=== PATIENT | male | born 1940 | race Caucasian/White ===

== ENCOUNTER 2017-11-22 16:23 | Inpatient (IN) ==
--- NOTE | 2017-11-22 16:43 | Emergency Department Note ---
Disposition Clinical Impression: Chest pain, rule out acute myocardial infarction Disposition: Admitted As Inpatient Condition: Fair Chest Pain HPI - General Chief Complaint: ED Chest Pain Stated Complaint: chest pain Time Seen by Provider: 11/22/17 16:31 Source: patient, family Limitations: no limitations - History of Present Illness HPI Narrative: Mr. Sandhu is a 77 year-old gentleman with PMH significant for HTN, DM, and an episode of Afib with RVR who presents by EMS for chest pain that began this afternoon while seated at a picnic table talking with friends. While talking to his friends he felt his heart rate increasing, could feel his heart pounding in his chest, and started to experience a constant, substernal, non-radiating chest pain that he describes as "pressure." Pt states his heart races from time to time, but it has always gone away after sitting down. He admits to nausea associated with his chest pain. He denies diaphoresis, difficulty breathing, shortness of breath, back pain, and confusion associated with the chest pain at the time it began. Pt states he didn't physically exert himself prior to the chest pain, but that he did mow some of his lawn with a push mower. Since his arrival, his chest pain has improved and is having less substernal pressure. Patient denies h/o KS or other cardiac issues. According to patient and accompanying family, he has been feeling more fatigued than usual x 1 year year , but fatigue has worsened over the last 6 months. He has seen his PCP for the fatigue and has what sounds like a cardiac echo planned. He reports some occasional lower extremity swelling, but this is not new for him and it hasn't changed from baseline. Pt complaint: other (Chest pressure) Onset (ago): hour(s) Duration: constant (resolving) Pain Location: substernal Severity scale (1-10): 4 Quality: other (pressure) Pain Radiation: none Associated symptoms: Reports: nausea, leg swelling (occasional). Denies: vomiting, diaphoresis, syncope - Related Data Home Medications Medication Instructions Recorded Confirmed Allopurinol [Zyloprim] 100 mg PO QAM 03/28/15 07/02/15 Amitriptyline [Elavil] 25 mg PO QPM 03/28/15 07/02/15 Indomethacin [Indocin] 50 mg PO BID PRN 03/28/15 07/02/15 Lisinopril/Hydrochlorothiazide 1 each PO QAM 03/28/15 07/02/15 [Zestoretic 20-12.5 mg Tablet] Loratadine [Claritin] 10 mg PO QAM 03/28/15 07/02/15 Metoprolol [Lopressor] 100 mg PO QAM 03/28/15 07/02/15 Metoprolol [Lopressor] 200 mg PO QPM 03/28/15 07/02/15 Simvastatin [Zocor] 20 mg PO QPM 03/28/15 07/02/15 Tamsulosin [Flomax] 0.4 mg PO QAM 03/28/15 07/02/15 Sildenafil Citrate [Viagra] 100 mg PO AD 07/02/15 07/02/15 Previous Rx's Medication Instructions Recorded Amoxicillin [Amoxil] 1,000 mg PO BID #26 capsule 07/04/15 Clarithromycin [Biaxin] 500 mg PO BID #26 tablet 07/04/15 Ferrous Sulfate 325 mg PO BIDWM #60 tablet 07/04/15 Omeprazole [PriLOSEC] 20 mg PO BIDAC #60 capsule 07/04/15 Allergies Allergy/AdvReac Type Severity Reaction Status Date / Time allantoin Allergy Unknown UNKNOWN Verified 07/02/15 15:32 atorvastatin [From Lipitor] Allergy Unknown UNKNOWN Verified 07/02/15 15:32 Sulfa (Sulfonamide Allergy Unknown UNKNOWN Verified 07/02/15 15:32 Antibiotics) All systems ED: reviewed and negative except as stated. Review of Systems: As Per HPI Constitutional: Reports: weakness (x 1 year, worse x 6 months) Eyes: Reports: other (subconjunctival hemorrhage bilaterally) Cardiovascular: Reports: chest pain, other (tachycardia) Gastrointestinal: Reports: nausea. Denies: vomiting Musculoskeletal: Denies: back pain, neck pain Neurological: Reports: headache. Denies: numbness, paresthesias, confusion Chest Pain PMH - Past Medical History Medical history: Reports: hyperlipidemia, hypertension, renal disease Surgical history: Reports: orthopedic, other Psychiatric history: Reports: no psych history - Social History Smoking Status: Never smoker Alcohol use: Reports: none Drug use: Reports: none Physical Exam - General Limitations: no limitations General appearance: alert, in no apparent distress - Head Head exam: normocephalic - Eye Eye exam: Present: PERRL, other (subconjunctival hemorrhage bilaterally) - Neck Neck exam: Present: full ROM - Respiratory Respiratory exam: Absent: respiratory distress - Cardiovascular Cardiovascular exam: Present: tachycardia - Abdominal Exam Abdominal exam: Present: other (small umbilical hernia) - Neurological Exam Neurological exam: Present: alert, oriented X3 - Psychiatric Psychiatric exam: Present: normal affect, normal mood Course Vital Signs Temperature 98.3 F 11/22/17 16:24 Pulse Rate 112 11/22/17 16:24 Respiratory Rate 20 11/22/17 16:24 Blood Pressure 166/88 11/22/17 16:24 O2 Sat by Pulse Oximetry 97 11/22/17 16:24 Temperature 98.3 F 11/22/17 22:20 Pulse Rate 88 11/22/17 22:20 Respiratory Rate 18 11/22/17 22:20 Blood Pressure 153/78 11/22/17 22:20 O2 Sat by Pulse Oximetry 94 11/22/17 22:20 Oxygen Delivery Oxygen Delivery Room Air Chest Pain - MDM Narrative Medical decision making narrative: Mr. Sandhu is a 77 year-old gentleman with h/o HTN, DM, and renal disease who presented to the emergency department by EMS for chest pain and heart rates in the 140s to 50s. On arrival, he was afebrile, tachycardic HR 112, BP 166/88, saturating 97% room air. EKG was done immediately on arrival and showed sinus tachycardia with ST depressions in V2-V4, new findings compared to an old EKG. Pulmonary vascular congestion noted on CXR. Lab work showed his CBC was within normal limits, potassium 3.4, glucose 140, initial troponin < 0.03. HEART score 6. Cardiology consultation was made. Dr. Teague recommended pt be admitted and would like to do a heart cath in the morning. Heparin gtt started as requested by cardiology. Pt will be admitted to hospital for further evaluation and management. Pt was in agreement with the plan as stated. - Medical Records Medical records reviewed: Yes I reviewed the patient's medical records. - Lab Data Lab results reviewed: Yes I reviewed the patient's lab results. Result diagrams: 11/23/17 00:49 11/23/17 00:49 Lab Results 05/13/18 05/13/18 05/13/18 Range/Units 16:40 16:40 16:40 WBC 5.3 (4.3-11.1) K/mcL RBC 4.35 (4.19-5.50) M/mcL Hgb 13.4 (12.9-16.9) g/dL Hct 40.8 (37.5-50.1) % MCV 93.8 (83.0-100.0) fL MCH 30.8 (28.0-33.3) pg MCHC 32.8 (31.6-35.5) g/dL RDW 13.5 (11.5-14.5) % Plt Count 244 (140-400) K/mcL MPV 10.3 (9.4-12.4) fL Immature Gran % 0.9 (0-4) % Seg Neutrophils % 75.9 % Lymphocytes % 15.3 % Monocytes % 6.4 % Eosinophils % 0.9 % Basophils % 0.6 % Neutrophils # 4.0 (1.6-8.9) K/mcL Lymphocytes # 0.8 (0.6-4.6) K/mcL Monocytes # 0.3 (0.0-1.3) K/mcL Eosinophils # 0.1 (0.0-0.6) K/mcL Basophils # 0.0 (0.0-0.2) K/mcL PT 11.7 (9.4-12.1) Seconds INR 1.1 APTT 25.7 L (26.0-36.0) Seconds Sodium 140 (136-145) mEq/L Potassium 3.4 L (3.5-5.1) mEq/L Chloride 103 (98-107) mEq/L Carbon Dioxide 27 (23-29) mEq/L BUN 14 (8-23) mg/dL Creatinine 0.91 (0.70-1.30) mg/dL Est GFR ( Amer) > 60 (> 60) Est GFR (Non-Af Amer) > 60 (> 60) BUN/Creatinine Ratio 15 (6-26) Glucose 140 H (70-105) mg/dL Calculated Osmolality 293 (280-300) Calcium 9.3 (8.6-10.3) mg/dL Troponin I < 0.03 (< 0.04) ng/mL - Radiology Data Radiology results reviewed: Yes I reviewed the patient's radiology results. - EKG Data EKG attestation: Yes I reviewed and interpreted this EKG. EKG shows normal: sinus rhythm Rate: tachycardia [place]/QRS: normal ST segment depression in: v2, v3
[2017-11-22 17:02] LABS: Basophils % 0.6 %; Eosinophils # 0.1 K/mcL (0.0-0.6); Eosinophils % 0.9 %; Hematocrit 40.8 % (37.5-50.1); Hemoglobin 13.4 g/dL (12.9-16.9); Immature Granulocytes % 0.9 % (0-4); Lymphocytes # 0.8 K/mcL (0.6-4.6); Lymphocytes % 15.3 %; Mean Corpuscular HGB Conc 32.8 g/dL (31.6-35.5); Mean Corpuscular Hemoglobin 30.8 pg (28.0-33.3); Mean Corpuscular Volume 93.8 fL (83.0-100.0); Mean Platelet Volume 10.3 fL (9.4-12.4); Monocytes # 0.3 K/mcL (0.0-1.3); Monocytes % 6.4 %; Platelet Count 244 K/mcL (140-400); Red Blood Count 4.35 M/mcL (4.19-5.50); Red Cell Distribution Width 13.5 % (11.5-14.5); Segmented Neutrophils % 75.9 %
[2017-11-22 17:06] LABS: INR 1.1; Prothrombin Time 11.7 Seconds (9.4-12.1)
[2017-11-22 17:09] LABS: Activated Partial Thrombo Time 25.7 Seconds (26.0-36.0)
[2017-11-22 17:25] LABS: BUN/Creatinine Ratio 15 (6-26); Blood Urea Nitrogen 14 mg/dL (8-23); Calcium 9.3 mg/dL (8.6-10.3); Carbon Dioxide 27 mEq/L (23-29); Chloride 103 mEq/L (98-107); Glucose 140 mg/dL (70-105); Osmolality,Calculated 293 (280-300); Potassium 3.4 mEq/L (3.5-5.1); Sodium 140 mEq/L (136-145); eGFR For African Americans > 60 (> 60); eGFR For Non-African Americans > 60 (> 60)
[2017-11-22 17:26] LABS: Troponin I < 0.03 ng/mL (< 0.04)
[2017-11-22] MEDS ORDERED: Nitroglycerin 0.4 MG TAB.SUBL SL PRN (17:28)
[2017-11-22] MEDS ORDERED: Aspirin 81 MG TAB.CHEW PO STA (17:28)
[2017-11-22] MEDS ORDERED: *HR* Heparin 5,000 UNIT/ML VIAL IVP PRN (17:28)
[2017-11-22] MEDS ORDERED: *HR* Heparin 5,000 UNIT/ML VIAL IVP ONE (17:28)
[2017-11-22] MEDS ORDERED: Acetaminophen 325 MG TABLET PO ONE (17:57)
[2017-11-22] MEDS: Heparin 25,000 UNIT/500 ML D5W 25,000 UNIT/500 ML BAG IVC SCH (18:04)
--- NOTE | 2017-11-22 18:31 | Emergency Department Note ---
Disposition Clinical Impression: Chest pain, rule out acute myocardial infarction Disposition: Admitted As Inpatient Condition: Fair Forms: ED Satisfaction Letter Time of Disposition: 17:20 Chest Pain HPI - General Chief Complaint: ED Chest Pain Stated Complaint: chest pain Time Seen by Provider: 11/22/17 16:31 Source: patient, family Limitations: no limitations Vital Signs Reviewed: Yes Nursing Notes Reviewed: Yes - History of Present Illness Pain Location: substernal Severity scale (1-10): 4 Quality: other (pressure) Associated symptoms: Reports: nausea, leg swelling (occasional). Denies: vomiting, diaphoresis, syncope - Related Data Home Medications Medication Instructions Recorded Confirmed Allopurinol [Zyloprim] 100 mg PO QAM 03/28/15 07/02/15 Amitriptyline [Elavil] 25 mg PO QPM 03/28/15 07/02/15 Indomethacin [Indocin] 50 mg PO BID PRN 03/28/15 07/02/15 Lisinopril/Hydrochlorothiazide 1 each PO QAM 03/28/15 07/02/15 [Zestoretic 20-12.5 mg Tablet] Loratadine [Claritin] 10 mg PO QAM 03/28/15 07/02/15 Metoprolol [Lopressor] 100 mg PO QAM 03/28/15 07/02/15 Metoprolol [Lopressor] 200 mg PO QPM 03/28/15 07/02/15 Simvastatin [Zocor] 20 mg PO QPM 03/28/15 07/02/15 Tamsulosin [Flomax] 0.4 mg PO QAM 03/28/15 07/02/15 Sildenafil Citrate [Viagra] 100 mg PO AD 07/02/15 07/02/15 Previous Rx's Medication Instructions Recorded Amoxicillin [Amoxil] 1,000 mg PO BID #26 capsule 07/04/15 Clarithromycin [Biaxin] 500 mg PO BID #26 tablet 07/04/15 Ferrous Sulfate 325 mg PO BIDWM #60 tablet 07/04/15 Omeprazole [PriLOSEC] 20 mg PO BIDAC #60 capsule 07/04/15 Allergies Allergy/AdvReac Type Severity Reaction Status Date / Time allantoin Allergy Unknown UNKNOWN Verified 07/02/15 15:32 atorvastatin [From Lipitor] Allergy Unknown UNKNOWN Verified 07/02/15 15:32 Sulfa (Sulfonamide Allergy Unknown UNKNOWN Verified 07/02/15 15:32 Antibiotics) Constitutional: Reports: weakness (x 1 year, worse x 6 months) Eyes: Reports: other (subconjunctival hemorrhage bilaterally) Cardiovascular: Reports: chest pain, other (tachycardia) Gastrointestinal: Reports: nausea. Denies: vomiting Musculoskeletal: Denies: back pain, neck pain Neurological: Reports: headache. Denies: numbness, paresthesias, confusion Chest Pain PMH - Past Medical History Medical history: Reports: hyperlipidemia, hypertension, renal disease Surgical history: Reports: orthopedic, other Psychiatric history: Reports: no psych history - Social History Smoking Status: Never smoker Alcohol use: Reports: none Drug use: Reports: none Physical Exam - General Limitations: no limitations General appearance: alert, in no apparent distress Course Vital Signs Temperature 98.3 F 11/22/17 16:24 Pulse Rate 112 11/22/17 16:24 Respiratory Rate 20 11/22/17 16:24 Blood Pressure 166/88 11/22/17 16:24 O2 Sat by Pulse Oximetry 97 11/22/17 16:24 Temperature 98.3 F 11/22/17 16:24 Pulse Rate 108 11/22/17 16:55 Respiratory Rate 18 11/22/17 16:55 Blood Pressure 155/88 11/22/17 16:55 O2 Sat by Pulse Oximetry 98 11/22/17 16:55 Oxygen Delivery Oxygen Delivery Room Air Chest Pain - Lab Data Result diagrams: 11/22/17 16:40 11/22/17 16:40 Lab Results 11/22/17 11/22/17 11/22/17 Range/Units 16:40 16:40 16:40 WBC 5.3 (4.3-11.1) K/mcL RBC 4.35 (4.19-5.50) M/mcL Hgb 13.4 (12.9-16.9) g/dL Hct 40.8 (37.5-50.1) % MCV 93.8 (83.0-100.0) fL MCH 30.8 (28.0-33.3) pg MCHC 32.8 (31.6-35.5) g/dL RDW 13.5 (11.5-14.5) % Plt Count 244 (140-400) K/mcL MPV 10.3 (9.4-12.4) fL Immature Gran % 0.9 (0-4) % Seg Neutrophils % 75.9 % Lymphocytes % 15.3 % Monocytes % 6.4 % Eosinophils % 0.9 % Basophils % 0.6 % Neutrophils # 4.0 (1.6-8.9) K/mcL Lymphocytes # 0.8 (0.6-4.6) K/mcL Monocytes # 0.3 (0.0-1.3) K/mcL Eosinophils # 0.1 (0.0-0.6) K/mcL Basophils # 0.0 (0.0-0.2) K/mcL PT 11.7 (9.4-12.1) Seconds INR 1.1 APTT 25.7 L (26.0-36.0) Seconds Sodium 140 (136-145) mEq/L Potassium 3.4 L (3.5-5.1) mEq/L Chloride 103 (98-107) mEq/L Carbon Dioxide 27 (23-29) mEq/L BUN 14 (8-23) mg/dL Creatinine 0.91 (0.70-1.30) mg/dL Est GFR ( Amer) > 60 (> 60) Est GFR (Non-Af Amer) > 60 (> 60) BUN/Creatinine Ratio 15 (6-26) Glucose 140 H (70-105) mg/dL Calculated Osmolality 293 (280-300) Calcium 9.3 (8.6-10.3) mg/dL Troponin I < 0.03 (< 0.04) ng/mL Attestation Statement - Attestation Attestation: I, Justin Dyson, examined this patient and my medical decision-making was reviewed with the ASSISTANT TEACHING PROFESSOR/PA/Advanced Practice Nurse/Resident Physician. I agree with the documented findings, disposition and treatment plan as described except to the extent set forth below. 77-year-old male presents emergency Department after an episode of lightheadedness, chest pressure and nausea. Patient states that this is occurred intermittently over the past year. Today his daughters had noticed that he did not look well, they gave him an aspirin in the emergency department for further evaluation. Patient had ST depressions in V2, V3, V4 which were changed from his previous EKG. Patient states he has never had history of cardiac disease other than A. fib. He also has a history of hypertension and diabetes. EKG was obtained immediately upon arrival which had concerning changes and so the interventional list, Dr. Teague was contacted. Dr. Teague reviewed the ECG and recommended no evidence of STEMI. Patient was started on heparin, he had received 324mg aspirin prior to arrival. Patient comfortable with the plan to admit to the hospital for further care and evaluation of likely heart catheterization in the morning.
--- NOTE | 2017-11-22 19:52 | Event Note ---
Date of Encounter: 11/22/17 Time of Encounter: 19:50 77/male Multiple comorbid conditions. Ongoing chest pain off and on for more than few months. Worsening chest pain since 1 PM today. Associated with nausea/vomiting. Evaluated in the emergency room. Possible dynamic EKG changes. Cardiology consult it. Recommended heparin drip. We will follow the recommendations from cardiology. Aspirin/beta blockers/statin/nitroglycerin. Echocardiogram. Cycle troponin. I have examined this patient in room 3B 35. Patient's family member including his , daughter was present during the conversation. Plan of care discussed with the patient/family members. They verbalize understanding.
[2017-11-22] MEDS ORDERED: Naloxone 0.4 MG/ML INJ IVP PRN (19:56)
--- NOTE | 2017-11-22 20:08 | Internal Med History&Physical ---
<JackelynMode - Last Filed: 11/22/17 20:01> Date of Encounter: 11/22/17 Time of Encounter: 19:45 Internal Medicine - H&P: HPI Chief complaint: Chest Pain Admitted From: Emergency Dept Plans for Post Hospital Care: Home History of present illness: Mr. Sandhu is a 77 year old male with PMHx of HTN, Diabetes, gastric ulcer ( 2014), presents to ED for chest pain with nausea and vomiting that began this afternoon while seated at a picnic table speaking with his friends. He denies history of OR or CAD. Denies previous stress test. He reports that he has had intermittent episodes of chest pressure over the last year, becoming more frequent the last 3 months. The chest pain usually self-resolves. Chest pain is constant, substernal, non-radiating. He denies SOB, diaphoresis, abdominal pain. Denies recent illnesses, f/c/diarrhea. The patient that admit to chronic LE swelling that is currently baseline. He has poor exercise tolerance, which he associates with his bad knee. Chest pain has improved after receiving nitroglycerin in ED. He is admitted for chest pain r/o ACS. Past Med Surg Social Fam HX - Past Medical History Medical history: hyperlipidemia, hypertension, renal disease Psychiatric history: no psych history - Past Surgical History Surgical History: orthopedic, other - Social History Smoking Status: Never smoker Smokeless Tobacco Status: No Alcohol use: none Drug use: none - Family History Father Hx Family Cardiac Disorders: Yes (Stroke) Sister Hx Family Cardiac Disorders: Yes (Stroke) Hx Family Cancer: Yes (Leukemia) Internal Medicine - H&P: Meds Allopurinol [Zyloprim] 100 mg PO QAM 03/28/15 [History] Amitriptyline [Elavil] 25 mg PO QPM 03/28/15 [History] Indomethacin [Indocin] 50 mg PO BID PRN 03/28/15 [History] Lisinopril/Hydrochlorothiazide [Zestoretic 20-12.5 mg Tablet] 1 each PO QAM [History] Loratadine [Claritin] 10 mg PO QAM 03/28/15 [History] Metoprolol [Lopressor] 100 mg PO QAM 03/28/15 [History] Metoprolol [Lopressor] 200 mg PO QPM 03/28/15 [History] Simvastatin [Zocor] 20 mg PO QPM 03/28/15 [History] Tamsulosin [Flomax] 0.4 mg PO QAM 03/28/15 [History] Sildenafil Citrate [Viagra] 100 mg PO AD 07/02/15 [History] Amoxicillin [Amoxil] 1,000 mg PO BID #26 capsule 07/04/15 [Rx] Clarithromycin [Biaxin] 500 mg PO BID #26 tablet 07/04/15 [Rx] Ferrous Sulfate 325 mg PO BIDWM #60 tablet 07/04/15 [Rx] Omeprazole [PriLOSEC] 20 mg PO BIDAC #60 capsule 07/04/15 [Rx] 3 Allergy/AdvReac Type Severity Reaction Status Date / Time allantoin Allergy Unknown UNKNOWN Verified 07/02/15 15:32 atorvastatin [From Lipitor] Allergy Unknown UNKNOWN Verified 07/02/15 15:32 Sulfa (Sulfonamide Allergy Unknown UNKNOWN Verified 07/02/15 15:32 Antibiotics) All Systems PM: A 10-system review of systems was performed and is negative for pertinent findings except as documented above in the HPI. - Constitutional Constitutional: no chills, no fever(s), no night sweats - EENT Eyes: no change in vision, no discharge, no pain, no photophobia Ears: no ear discharge, no ear pain, no tinnitus Nose, mouth and throat: no dysphagia, no nasal discharge, no neck pain, no sore throat - Cardiovascular Cardiovascular ROS IM: chest pain, palpitations, no diaphoresis, no dyspnea, no lightheadedness, no syncope - Respiratory Respiratory: no cough, no dyspnea, no wheezing, no excessive phlegm production - Gastrointestinal Gastrointestinal: no abdominal pain, no diarrhea, no hematemesis, no hematochezia, no melena, no nausea, no vomiting - Musculoskeletal Musculoskeletal ROS IM: no numbness, no tingling - Integumentary Integumentary IM: no rash, no unusual bruising - Neurological Neurological ROS: no confusion, no convulsions, no focal weakness, no numbness, no tingling, no tremor(s) - Hematologic/Lymphatic Hematologic/Lymphatic: no easy bruising - Constitutional Vitals: Temp Pulse Resp BP Pulse Ox 98.3 F 90 18 140/111 98 11/22/17 16:24 11/22/17 18:28 11/22/17 18:28 11/22/17 18:28 11/22/17 18:28 General appearance: Present: A&O X 3, no acute distress - Head Head exam: Present: atraumatic, normocephalic - Eye Eye exam: Present: EOMI, conjuntiva pink, sclera anicteric - Neck Neck exam general surgery: Present: full ROM, supple, trachea midline. Absent: lymphadenopathy - Respiratory Respiratory exam: Present: CTAB. Absent: accessory muscle use, rales, rhonchi, wheezes - Cardiovascular Cardiovascular exam: Present: +S1, +S2, tachycardia. Absent: diastolic murmur, gallop, rubs, systolic murmur - GI/Abdominal GI/Abdominal exam: Present: normal bowel sounds, soft, no peritoneal signs. Absent: distended, tenderness - Extremities Exam Extremities exam: Present: pedal edema, warm, radial pulses palpable and symmetrical. Absent: calf tenderness, cyanotic - Neurological Exam Neurological exam: Present: oriented X3, no focal deficits. Absent: pronater drift, facial droop, speech deficit - Skin Skin exam: Present: dry, intact Internal Med - H&P Results - Labs CBC & Chem 7: 11/22/17 16:40 11/22/17 16:40 - Assessment and plan (1) Chest pain, rule out acute myocardial infarction Current Visit: Yes Status: Acute Assessment and plan: 77M with PMHx HTN, DM, no history of CAD, presents for intermittent chest pain for the last year, worse this PM, associated with n/v. CP improved with Nitroglycerin. EKG independently reviewed: tachycardic with occasional PVCs. Possible dynamic changes. CXR = no acute findings. Troponin negative x 1. Continue trending. Continue heparin drip, aspirin, BB, statin, nitroglycerin. Pending echocardiogram. Pending cardiology consult. (2) Hypertension Current Visit: No Status: Chronic Assessment and plan: Reconcile home medications when available. Qualifiers: Hypertension type: essential hypertension Qualified Code(s): I10 - Essential (primary) hypertension (3) Diabetes Current Visit: No Status: Chronic Assessment and plan: Stable. low dose SSI Qualifiers: Diabetes mellitus type: type 2 Diabetes mellitus complication status: with kidney complications Diabetes mellitus complication detail: with chronic kidney disease Chronic kidney disease stage: unspecified stage Qualified Code(s): E11.22 - Type 2 diabetes mellitus with diabetic chronic kidney disease (4) Hypokalemia Current Visit: Yes Status: Acute Assessment and plan: KCl 20 meq PO once Recheck AM labs (5) DVT prophylaxis Current Visit: Yes Status: Acute Assessment and plan: On heparin Drip - Time Spent With Patient Total time spent is greater than 50% in coordination of care (as documented) at patient's floor/unit and/or counseling patient: Greater than 35 minutes <Ean Rodriguez P - Last Filed: 11/22/17 21:27> Date of Encounter: 11/22/17 Internal Medicine - H&P: HPI History of present illness: Mr. Sandhu is a 77 year old male All Systems PM: A 10-system review of systems was performed and is negative for pertinent findings except as documented above in the HPI. - Constitutional Vitals: Temp Pulse Resp BP Pulse Ox 98.3 F 90 18 140/111 98 11/22/17 16:24 11/22/17 18:28 11/22/17 18:28 11/22/17 18:28 11/22/17 18:28 Internal Med - H&P Results - Labs CBC & Chem 7: 11/22/17 16:40 11/22/17 16:40 - Attending Attestation I examined this patient and my medical decision-making was reviewed with the Resident Physician. I agree with the documented findings, disposition and treatment plan as described except to the extent set forth below. seen and examined please see event note - Assessment and plan (1) Diabetes Current Visit: No Status: Chronic Qualifiers: Diabetes mellitus type: type 2 Diabetes mellitus complication status: with kidney complications Diabetes mellitus complication detail: with chronic kidney disease Chronic kidney disease stage: unspecified stage Qualified Code(s): E11.22 - Type 2 diabetes mellitus with diabetic chronic kidney disease (2) Hypertension Current Visit: No Status: Chronic Qualifiers: Hypertension type: essential hypertension Qualified Code(s): I10 - Essential (primary) hypertension (3) Chest pain, rule out acute myocardial infarction Current Visit: Yes Status: Acute (4) Hypokalemia Current Visit: Yes Status: Acute (5) DVT prophylaxis Current Visit: Yes Status: Acute - Time Spent With Patient Total time spent is greater than 50% in coordination of care (as documented) at patient's floor/unit and/or counseling patient:
[2017-11-22] MEDS ORDERED: *HR* Dextrose 50 % in Water (Syg) 50 ML SYRINGE IVP PRN (20:25)
[2017-11-22] MEDS ORDERED: D5% in Water 1,000 ML IVC PRN (20:25)
[2017-11-22] MEDS ORDERED: Dextrose Gel 15 GM/37.5 ML TUBE PO PRN ×2 (20:25)
[2017-11-22] MEDS: Insulin LISPRO 300 UNITS/3 ML VIAL SQ SCH (21:23)
[2017-11-23 01:34] LABS: Eosinophils # 0.1 K/mcL (0.0-0.6); Eosinophils % 2.9 %; Hematocrit 38.1 % (37.5-50.1); Hemoglobin 12.5 g/dL (12.9-16.9); Immature Granulocytes % 1.6 % (0-4); Lymphocytes % 32.4 %; Mean Corpuscular HGB Conc 32.8 g/dL (31.6-35.5); Mean Corpuscular Hemoglobin 30.6 pg (28.0-33.3); Mean Corpuscular Volume 93.2 fL (83.0-100.0); Mean Platelet Volume 10.5 fL (9.4-12.4); Monocytes # 0.2 K/mcL (0.0-1.3); Monocytes % 7.5 %; Neutrophils # 1.7 K/mcL (1.6-8.9); Nucleated Red Blood Cells 0.7 /100 WBC (0); Platelet Count 230 K/mcL (140-400); Red Blood Count 4.09 M/mcL (4.19-5.50); Red Cell Distribution Width 13.6 % (11.5-14.5); Segmented Neutrophils % 54.6 %
[2017-11-23 01:45] LABS: BUN/Creatinine Ratio 16 (6-26); Blood Urea Nitrogen 16 mg/dL (8-23); Calcium 9.1 mg/dL (8.6-10.3); Carbon Dioxide 27 mEq/L (23-29); Chloride 105 mEq/L (98-107); Glucose 101 mg/dL (70-105); Magnesium 1.8 mg/dL (1.6-2.6); Osmolality,Calculated 293 (280-300); Potassium 3.5 mEq/L (3.5-5.1); Sodium 141 mEq/L (136-145); eGFR For African Americans > 60 (> 60); eGFR For Non-African Americans > 60 (> 60)
[2017-11-23] MEDS: *HR* Heparin 5,000 UNIT/ML VIAL IVP PRN ×3 (02:32→18:11)
--- NOTE | 2017-11-23 09:42 | Cardiology Consult Note ---
<Keenan Hollingsworth - Last Filed: 11/23/17 10:22> Date of Encounter: 11/23/17 Time of Encounter: 09:32 Assessment and Plan (1) Chest pain, rule out acute myocardial infarction Current Visit: Yes Status: Acute Mr. Sandhu presents with chest pain and jittery feeling. Family reports HR 160 's at home and it would not come down. Initiall EKG showed ST HR [address] or T wave changes. Upon further record review patient had atrial fibrillation with RVR after knee surgery in 2014. Patient denies history of afib. No afib seen during this stay. Continue to monitor telemetry. Troponin negative x3. Cardiac risk factors include HTN, HLD. I discussed stress test vs. LHC. Patient has ongoing symptoms increasing in frequency. Concern for unstable angina. I will discuss further with Dr Best. (2) Hypertension Current Visit: No Status: Chronic Uncontrolled HTN. Restart home meds and adjust as needed. Qualifiers: Hypertension type: essential hypertension Qualified Code(s): I10 - Essential (primary) hypertension Discussion w patient/family: The assessment and plan as outlined above was discussed with the patient and/or family members who expressed understanding and agreement. All questions were answered. Thank you for involving us in the care of your patient. Please call with any questions. History of Present Illness Consult date: 11/23/17 Requesting physician: Ean Rodriguez Consult reason: Chest pain Chief complaint: Chest pain, tachycardia History of present illness: Mr. Sandhu is a 77 year old male with past medical history significant for HTN , HLD, and GI bleed after colonoscopy in 2014. He presented with the c/o chest heaviness and jittery feeling that started while he was sitting at a family gathering. states they checked his heart rate and it was seen to be 160 bpm , b/p 176/80. He tried to relax and his symptoms did not improve. He presented to the ED and was given NTG SL with relief of his pain. Reports having the same symptoms for the past year and they have increased in frequency over the past three months. He was started on heparin gtt for concerns of unstable angina. Past Med Surg Social Fam HX - Past Medical History Medical history: hyperlipidemia, hypertension, renal disease Psychiatric history: no psych history - Past Surgical History Surgical History: orthopedic, other - Social History Smoking Status: Never smoker Smokeless Tobacco Status: No Alcohol use: none Drug use: none - Family History Father Hx Family Cardiac Disorders: Yes (Stroke) Sister Hx Family Cardiac Disorders: Yes (Stroke) Hx Family Cancer: Yes (Leukemia) Medications and Allergies Amitriptyline [Elavil] 25 mg PO QPM 03/28/15 [History] Indomethacin [Indocin] 50 mg PO BID PRN 03/28/15 [History] Lisinopril/Hydrochlorothiazide [Zestoretic 20-12.5 mg Tablet] 1 each PO QAM [History] Ferrous Sulfate 325 mg PO BIDWM #60 tablet 07/04/15 [Rx] Allopurinol [Zyloprim 100 MG] 100 mg PO DAILY 11/23/17 [History] Donepezil [Aricept] 5 mg PO DAILY 11/23/17 [History] Fluticasone Propionate Nasal [Flonase] 1 spr NS DAILY 11/23/17 [History] Metoprolol [Lopressor] 100 mg PO QAM 11/23/17 [History] Metoprolol [Lopressor] 200 mg PO QPM 11/23/17 [History] Omeprazole [PriLOSEC] 40 mg PO DAILY 11/23/17 [History] traZODone [TraZODone] 50 - 100 mg PO HS 11/23/17 [History] 3 Allergy/AdvReac Type Severity Reaction Status Date / Time allantoin Allergy Unknown UNKNOWN Verified 11/23/17 11:22 atorvastatin [From Lipitor] Allergy Unknown UNKNOWN Verified 11/23/17 11:22 Sulfa (Sulfonamide Allergy Unknown UNKNOWN Verified 11/23/17 11:22 Antibiotics) All Systems Review: The remainder of the systems were reviewed and are negative Physical Examination Vital Signs, Last 4 Hours Temp Pulse Resp BP Pulse Ox 11/23/17 07:24 98.6 F 78 17 170/73 96 General: Conversant, No Apparent Distress HEENT: Atraumatic, Normocephaly, Mucus Membranes Moist, Other (Eyes are blood shot) Neck: No JVD, Normal carotid pulses Cardiac: Reg Rate and Rhythm, Normal S1 and S2, No Murmur Lungs: Normal Breath Sounds, No Wheeze, Rales, Rhonchi Neuro: Alert and responsive, No focal deficits noted Abdomen: Soft, Non-Tender Skin: No rashes noted on visualized skin Musculoskeletal: No Chest Wall Tenderness Extremities: No Clubbing, No Cyanosis, No Edema, Normal Pulses Results 11/23/17 00:49 11/23/17 00:49 Lab Results 11/23/17 11/23/17 11/23/17 00:49 00:49 00:49 WBC 3.1 L Hgb 12.5 L Hct 38.1 Plt Count 230 APTT 30.7 Sodium 141 Potassium 3.5 Chloride 105 Carbon Dioxide 27 BUN 16 Creatinine 1.00 Glucose 101 Calcium 9.1 Magnesium 1.8 Troponin I 11/23/17 06:28 WBC Hgb Hct Plt Count APTT Sodium Potassium Chloride Carbon Dioxide BUN Creatinine Glucose Calcium Magnesium Troponin I < 0.03 - Imaging and Cardiology Echo: report reviewed - EKG Interpretation EKG results cardiology: personally reviewed Consult Discharge Plan - Plan Referrals: Brandan Lindsay, [Primary Care Provider] - <Prema Best - Last Filed: 11/23/17 12:21> Date of Encounter: 11/23/17 - Attending Attestation 77 YOM with multiple CRF's possible PAF on presentation with worsening (more frequent) episodes of chest pain over last month. ST depressions right sided precordials. R/B/A d/w patient and he agrees to proceed. ECHO with 60-65% EF Assessment and Plan Discussion w patient/family: The assessment and plan as outlined above was discussed with the patient and/or family members who expressed understanding and agreement. All questions were answered. Thank you for involving us in the care of your patient. Please call with any questions. History of Present Illness History of present illness: Mr. Sandhu is a 77 year old male All Systems Review: The remainder of the systems were reviewed and are negative Physical Examination Vital Signs, Last 4 Hours Temp Pulse Resp BP Pulse Ox 11/23/17 11:32 98.1 F 78 18 172/87 95 Results 11/23/17 00:49 11/23/17 00:49 Lab Results 11/23/17 11/23/17 11/23/17 00:49 00:49 00:49 WBC 3.1 L Hgb 12.5 L Hct 38.1 Plt Count 230 APTT 30.7 Sodium 141 Potassium 3.5 Chloride 105 Carbon Dioxide 27 BUN 16 Creatinine 1.00 Glucose 101 Calcium 9.1 Magnesium 1.8 Troponin I 11/23/17 11/23/17 06:28 09:46 WBC Hgb Hct Plt Count APTT 40.7 H Sodium Potassium Chloride Carbon Dioxide BUN Creatinine Glucose Calcium Magnesium Troponin I < 0.03
[2017-11-23] MEDS: Insulin LISPRO 300 UNITS/3 ML VIAL SQ SCH ×4 (10:15→20:41)
--- NOTE | 2017-11-23 13:15 | Electrocardiograph Report ---
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
[2017-11-23] MEDS ORDERED: 0.9 % Sodium Chloride 1,000 ML ONE ×2 (13:55→14:16)
[2017-11-23] MEDS ORDERED: Heparin 1,000 UNITS/500 mL 500 ML ONE (13:55)
[2017-11-23] MEDS ORDERED: ISOVUE-370 200 ML INFUS..BTL IV ONE (13:55)
[2017-11-23] MEDS ORDERED: *HR* Heparin 10,000 UNIT/10 ML VIAL ONE (13:55)
[2017-11-23] MEDS ORDERED: Verapamil 5 MG/2 ML VIAL ONE (13:55)
[2017-11-23] MEDS ORDERED: Nitroglycerin 1,000 MCG/10 ML VIAL IV ONE (13:56)
--- NOTE | 2017-11-23 13:57 | Pre-Sedation Evaluation ---
Pre-sedation evaluation - Pre-sedation checklist Date of procedure: 11/23/17 Procedure: access [facility] Recent Vitals: Last Vital Signs Temp 98.1 F 11/23/17 11:32 Pulse 78 11/23/17 11:32 Resp 18 11/23/17 11:32 BP 172/87 11/23/17 11:32 Pulse Ox 95 11/23/17 11:32 H&P (including ROS) documented in medical record: Yes Previous reaction to sedatives/anesthetics: No Dietary Status: NPO after Midnight Dentition: poor dentition, dentures removed ASA Classification *see protocol: CLASS II-Mild systemic disease Plan of Care: Pt appropriate candidate for procedure/moderate/conscious sedation , Risks/benefits of procedure/sedation discussed w/ patient/family
[2017-11-23] MEDS ORDERED: *HR* FentaNYL (PF) 100 MCG/2 ML VIAL ONE (14:16)
[2017-11-23] MEDS ORDERED: *HR* Midazolam HCl 2 MG/2 ML VIAL ONE (14:16)
--- NOTE | 2017-11-23 15:27 | Invasive Diagnostic Lab Proc ---
Name: James Sandhu Date of Study: 11/23/2017 Date: 1940 Ht: 72.0in Medical Record#: [id number] Age: 77 Wt: 220.02lb Gender: Male BSA: 2.22 Order #: [id number] BMI: 29.8 Physicians Procedure Physician: Issac Teague MD, [facility] Referring MD: Referring MD: Staff Name Position Time In Sites, [facility] RT (R) Monitor 02:27 PM Tegan Reed RT (R) Scrub 02:27 PM Sherron Hurley RN Forest Resource Specialist 02:27 PM Indications Indication Unstable Angina Procedures Performed Procedure L HRT ARTERY/VENTRICLE ANGIO Pre-Procedure Checklist Informed consent is complete signed and on chart. H&P is on chart. ID band is on and ID verified with patient. Patient NPO for procedure The procedure was described for the patient and questions were answered. Blood Pressure: 172/87 ECG is on chart. Rhythm: NSR Plan of Care Patient will tolerate the procedure without complications. Adequate level of comfort will be maintained. Hemodynamics will remain stable Patient will recover from procedure without complications. Respiratory function will be maintained. Cardiac rhythm will remain stable. Patient temperature will be maintained. Patient and/or family have verbalized understanding of the procedure. Patient Education Intravenous Access Time IV Size Location DC'd Fluid/Drip Rate Units RN 18g 1 /" Patent On Arrival Rt Arm 0.9NaCl 25 ml/hr Sherron Hurley RN Allergies allantoin Sulfa (Sulfonamide Antibiotics) atorvastatin Vital Signs Time BP (mmHg) HR (bpm) O2 Sat. RR (bpm) LOC 165 / 91 85 95 % 16 5 = Fully awake and oriented or at pre-proc level 02:40 PM 165 / 91 68 99 % 27 02:44 PM 153 / 87 74 93 % 29 02:49 PM 152 / 79 71 95 % 25 02:54 PM 118 / 67 82 92 % 22 02:59 PM 133 / 77 79 93 % 28 03:04 PM 149 / 81 75 95 % 15 Procedural Medications Time Medication Dose Units Method Given By 02:41 PM Oxygen 2 L/min nasal cannula Sherron Hurley RN 02:41 PM Versed 2 mg Intravenous Sherron Hurley RN 02:41 PM Fentanyl 50 mcg Intravenous Sherron Hurley RN 02:49 PM Lidocaine 2% 0.5 ml Subcutaneous Issac Teague MD, [facility] 02:51 PM Heparin 2000 units Nitroglycerin 200 mcg Verapamil 2.5 mg Intraarterial Issac Teague MD, [facility] ASA Classification: CLASS II- Mild systemic disease (i.e. well-controlled diabetes, hypertension, asthma, cigarette smoking) Jeovany Score Preprocedure Postprocedure Activity 2- Moves 4 extremities sustained head lift Activity 2- Moves 4 extremities sustained head lift Circulation 2- SBP +/= 20 points of pre-anesthetic level Circulation 2- SBP +/= 20 points of pre-anesthetic level Consciousness 2- Awake and alert oriented x 3 Consciousness 2- Awake and alert oriented x 3 O2 Saturation 2- Able to maintain O2 satruation of 92% on room air O2 Saturation 2- Able to maintain O2 satruation of 92% on room air Respiratory 2- Able to deep breathe and cough well Respiratory 2- Able to deep breathe and cough well Total Score 10 Total Score 10 Contrast Agent: Isovue Diagnostic Contrast: 52 ml Total Contrast: 52 ml Fluoro Dose: 247 mGy Procedure Log Time Note Enter By 02:27 PM Pt 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 tsites 02:29 PM Procedure start 14:29 tsites 02:38 PM Vitals capture started with the following parameters, Patient=Adult, Interval=5 min, Initial Wwbiswdy=254 mmHg, Deflation Rate=3 mmHg, Cuff placed on Right Arm 02:40 PM HR=68 bpm, TDVP=528/91 mmhg, SpO2=99 %, Resp=27 B/min 02:41 PM Hair removed from procedure site in holding area using clippers. Right wrist and right groin prepped with Chloraprep by Marjorie Oliveira (Speedy), then patient was draped. Skin intact. tsites 02:41 PM Time: 14:41 Oxygen on at 2 L/min per nasal cannula by Sherron Hurley RN tsites 02:41 PM Time: 14:41 Versed 2 mg Intravenous Given by Sherron Hurley RN tsites 02:41 PM Time: 14:41 Fentanyl 50 mcg Intravenous Given by Sherron Hurley RN tsites 02:41 PM Clinical Presentation: Unstable angina tsites 02:43 PM CathStat 02:43 PM Recorded ECG: HR=76 Condition=Condition 1 02:44 PM HR=74 bpm, ZJEL=581/87 mmhg, SpO2=93.0 %, Resp=29 B/min 02:45 PM Pressure channel 1 zeroed. 02:49 PM HR=71 bpm, XGTT=500/79 mmhg, SpO2=95.0 %, Resp=25 B/min 02:49 PM Time out performed according to hospital policy tsites 02:49 PM Time: 14:49 0.5 ml Lidocaine 2% to right radial Subcutaneous Given by Issac Teague MD, FACC tsites 02:50 PM Access obtained by percutaneous puncture. 5Fr 10cm Terumo Glidesheath sheath placed in right Radial artery. [id number] tsites 02:51 PM Time: 14:51 Patient given 2,000 units Heparin, 200 mcg Nitroglycerin, and 2.5 mg Verapamil Intraarterial by Issac Teague MD, FACC. This is given to reduce risk of vessel spasm and thrombosis. tsites 02:52 PM 5Fr TIG catheter inserted over the wire [facility] tsites 02:52 PM 0.035 260cm Navilyst 3mmJ wire [id number] tsites 02:52 PM Catheter selectively placed in left ventricle tsites 02:52 PM Bolus angiogram of left Ventricle complete: 10 ml/sec for a total of 20 mls tsites 02:52 PM Recorded Pressure: LV, HR=83, Condition=Condition 1 (Left Ventricle) LV 93/-7/-3 02:53 PM Recorded Pressure: LV, Ao, HR=82, Condition=Condition 1 (Left Ventricle) LV 97/-5/7, (Aorta) Ao 97/58/73 02:53 PM LCA angiography performed in multiple views. tsites 02:54 PM HR=82 bpm, KRDP=916/67 mmhg, SpO2=92.0 %, Resp=22 B/min 02:55 PM Lesion found in Proximal LAD. Pre Stenosis: 99 Pre MELANI Flow: tsites 02:55 PM Recorded Pressure: Ao, HR=81, Condition=Condition 1 (Aorta) Ao 92/66/80 02:56 PM RCA angiography performed in multiple views. tsites 02:56 PM Recorded Pressure: Ao, HR=79, Condition=Condition 1 (Aorta) Ao 75/51/64 02:59 PM HR=79 bpm, YBDI=474/77 mmhg, SpO2=93.0 %, Resp=28 B/min 03:00 PM Conversation between Interventionalist and CT Surgeon. tsites 03:00 PM Coronary Dominance: right tsites 03:00 PM Lesion found in Proximal LAD. Pre Stenosis: 99 Pre MELANI Flow: tsites 03:00 PM Lesion found in Mid LAD. Pre Stenosis: 70 Pre MELANI Flow: tsites 03:01 PM Lesion found in Mid Circumflex. Pre Stenosis: 70 Pre MELANI Flow: tsites 03:01 PM Lesion found in Mid RCA. Pre Stenosis: 95 Pre MELANI Flow: tsites 03:01 PM Proximal Left Anterior Descending Coronary Artery with 99% stenosis. If graft is supplying this territory, 0 % stenosis. tsites 03:01 PM Mid/Distal Left Anterior Descending Coronary Artery and diagonal branches with 70% stenosis. If graft is supplying this area, 0 % stenosis tsites 03:01 PM Circumflex, Obtuse Marginal, Left Posterior Descending, and Left Posterolateral Coronary Arteries with 70 % stenosis. If graft is supplying this area, 0 % stenosis tsites 03:01 PM Right Coronary, Right Posterior Descending Arteries with Right Posterolateral and Acute Marginal branches with 95 % stenosis. If graft is supplying this area, 0 % stenosis tsites 03:01 PM Procedure completed at 15:01 tsites 03:03 PM Did you address MELANI flow and Dominance? Yes tsites 03:03 PM Sign out completed: Radiation Dose 247 mGy Fluoro Time: 0.8 Isovue 370 - 200ml contrast 52 ml given by Issac Teague MD, [facility]. Complications: NoneCardiac Rehab Consult needed: YesConfirmed administered medications: No tsites 03:03 PM Cardiothoracic surgeon consulted by physician tsites 03:04 PM Isovue 370 - 200ml,1 Bottle(s) used. tsites 03:04 PM Arterial sheath pulled, Vasc Band closure device used and was Successful S/N. tsites 03:04 PM 10 ml air in Vasc Band. tsites 03:04 PM HR=75 bpm, TWBJ=427/81 mmhg, SpO2=95.0 %, Resp=15 B/min 03:04 PM Estimated Blood Loss: minimal tsites 03:04 PM Post ECG NSR tsites 03:04 PM Post Blood Pressure 149/81 tsites 03:04 PM 15:04 Post Pulses Rt Radial 1+ tsites 03:04 PM Information taught Cardiac Cath and Vasc Band tsites 03:04 PM Education needs Procedure, Plan of Care, and Responsibilities of Patient in Care tsites 03:05 PM Learning barriers :None tsites 03:05 PM Education Methods Verbal tsites 03:05 PM Education evaluation Able to repeat information tsites 03:05 PM Site status No bleeding/hematoma - Rt Wrist as reported by Tegan Reed RT (R) at 15:05 tsites 03:08 PM Delay to floor No tsites 03:08 PM Patient out of room: 15:08 tsites 03:11 PM Report given to johnathan ALLEN Pt taken to 3B Room #31. 15:11 tsites 03:11 PM Delay to floor No tsites 03:11 PM Patient out of room: 15:11 tsites 03:11 PM Family placed in consult room. tsites Complications Complication None Hemodynamics Pressures Site Systolic/A Wave Diastolic/V Wave Mean LV 93 -7 -3 LV 97 -5 7 AO 97 58 73 AO 92 66 80 AO 75 51 64 Post Procedure Information Blood Pressure: 149/81 mmHg Rhythm: NSR Post procedural instructions were given Closure Device Time Device Success/Fail 11/23/2017 3:14:00 PM Mechanical Compression Successful Site Checks Time Location Status Staff Sheath In? Note 03:05 PM Rt Wrist No bleeding/hematoma Tegan Reed RT (R) Pulses Time Site Pre-Procedure Post-Procedure Note Bilateral DP & PT 1+ 3:04:00 PM Rt Radial 1+ Updated by Marjorie Oliveira RT (R) on 11/23/2017 3:18:09 PM Marjorie Oliveira RT electronically signed on 11/23/2017 3:18:45 PM with status of Final
--- NOTE | 2017-11-23 16:04 | Cardiothoracic Consult Note ---
Date of Encounter: 11/23/17 Time of Encounter: 16:00 Assessment and Plan (1) Chest pain, rule out acute myocardial infarction Current Visit: Yes Status: Acute The patient is a 77-year-old hypertensive man with hypercholesterolemia and a 1 year history of progressive substernal chest discomfort. Yesterday the patient had a severe episode of substernal chest pressure and heart palpitations while at rest. He was evaluated at [facility] emergency department and found to have atrial fibrillation with a rapid ventricular response. He converted to normal sinus rhythm spontaneously and the patient was admitted for further cardiac workup. Although the patient's troponin I levels remained negative for myocardial infarction, he underwent cardiac catheterization today because of his unstable angina. He was found to have severe 3 vessel CAD and an LVEF 60%. Patient has been recommended for combined CABG and modified Maze procedure. I concur with this recommendation. The STS risk calculator reveals an operative mortality risk 1.5%, stroke risk 1.04%, deep sternal wound infection risk 0.27%, renal failure risk 2.95%, and reoperation risk 5.16%. The patient understands the procedure, benefits, alternatives, and risks, and gives his informed consent. Dr. Poli Storey will perform the combined CABG and modified Maze procedure tomorrow. The assessment and plan as outlined above was discussed with the patient and/or family members who expressed understanding and agreement. All questions were answered. - History of Present Illness Consult date: 11/23/17 Requesting physician: Issac Teague Consult reason: CABG evaluation Chief complaint: Unstable angina History of present illness: Mr. Sandhu is a 77 year old hypertensive man with hypercholesterolemia who was admitted to [facility] on 11/22/2017 with complaints of substernal chest pain and pressure and heart palpitations. The patient states that he has had intermittent, exertional substernal chest discomfort for at least 1 year; however, the symptoms have become more frequent and severe during the last 3 months. On the day of admission, the was at home with family when he began experiencing substernal chest pressure at rest. He also noticed heart palpitations and his states that the patient had a heart rate of 160 bpm. He was evaluated at [facility] emergency department and found to have paroxysmal atrial fibrillation with rapid ventricular response. The patient converted to normal sinus rhythm spontaneously. His initial troponin I levels were negative, and he was admitted for further cardiac workup. A transthoracic echocardiogram revealed an LVEF 60-65% with normal LV size and function. Subsequent cardiac catheterization revealed severe 3 vessel CAD and an LVEF 60%. In particular the patient has a 90% proximal LAD lesion, a 70% mid LAD lesion, a diffusely diseased mid to distal LCx, and a 70% proximal RCA lesion. He has been recommended for combined CABG and modified Maze procedure. Past Med Surg Social Fam HX - Past Medical History Medical history: coronary artery disease, hyperlipidemia, hypertension, renal disease Psychiatric history: no psych history - Past Surgical History Surgical History: orthopedic, other (Right total knee replacement) - Social History Smoking Status: Never smoker Smokeless Tobacco Status: No Alcohol use: none Drug use: none Occupational status: retired Current living situation: Home Activity Level: Independent ambulation Recent Out of Country Travel Within the Last 8 Weeks: No Exposure or Possible Exposure to Illness During Travel: No - Family History Father Hx Family Cardiac Disorders: Yes (Stroke) Sister Hx Family Cardiac Disorders: Yes (Stroke) Hx Family Cancer: Yes (Leukemia) Medications and Allergies Amitriptyline [Elavil] 25 mg PO QPM 03/28/15 [History] Indomethacin [Indocin] 50 mg PO BID PRN 03/28/15 [History] Lisinopril/Hydrochlorothiazide [Zestoretic 20-12.5 mg Tablet] 1 each PO QAM [History] Ferrous Sulfate 325 mg PO BIDWM #60 tablet 07/04/15 [Rx] Allopurinol [Zyloprim 100 MG] 100 mg PO DAILY 11/23/17 [History] Donepezil [Aricept] 5 mg PO DAILY 11/23/17 [History] Fluticasone Propionate Nasal [Flonase] 1 spr NS DAILY 11/23/17 [History] Metoprolol [Lopressor] 100 mg PO QAM 11/23/17 [History] Metoprolol [Lopressor] 200 mg PO QPM 11/23/17 [History] Omeprazole [PriLOSEC] 40 mg PO DAILY 11/23/17 [History] traZODone [TraZODone] 50 - 100 mg PO HS 11/23/17 [History] 3 Allergy/AdvReac Type Severity Reaction Status Date / Time allantoin Allergy Unknown UNKNOWN Verified 11/23/17 11:22 atorvastatin [From Lipitor] Allergy Unknown UNKNOWN Verified 11/23/17 11:22 Sulfa (Sulfonamide Allergy Unknown UNKNOWN Verified 11/23/17 11:22 Antibiotics) All Systems Review: The remainder of the systems were reviewed and are negative Physical Examination General: Conversant, No Apparent Distress HEENT: Atraumatic, Normocephaly, Trachea midline Neck: No JVD, Normal carotid pulses Cardiac: Reg Rate and Rhythm, Normal S1 and S2, No Murmur Lungs: Normal Breath Sounds, No Wheeze, Rales, Rhonchi Neuro: Alert and responsive, No focal deficits noted, Motor nerves intact, Sensory nerves intact Vascular: Normal capillary refill Abdomen: Soft, Non-tender Skin: No rashes noted on visualized skin Musculoskeletal: No Chest Wall Tenderness Extremities: No Clubbing, No Cyanosis, No Edema, Normal Pulses Results 11/23/17 00:49 11/23/17 00:49 Lab Results, Last 24 hours 11/23/17 11/23/17 11/23/17 00:49 00:49 00:49 WBC 3.1 L Hgb 12.5 L Hct 38.1 Plt Count 230 APTT 30.7 Sodium 141 Potassium 3.5 Chloride 105 Carbon Dioxide 27 BUN 16 Creatinine 1.00 Glucose 101 Calcium 9.1 Magnesium 1.8 Troponin I 11/23/17 11/23/17 06:28 09:46 WBC Hgb Hct Plt Count APTT 40.7 H Sodium Potassium Chloride Carbon Dioxide BUN Creatinine Glucose Calcium Magnesium Troponin I < 0.03 - Imaging Chest Xray: image reviewed (Normal cardiac size. Increased pulmonary vascularity.) Consult Discharge Plan - Plan Referrals: Brandan Lindsay DO [Primary Care Provider] -
[2017-11-23 17:02] LABS: Chol/HDL Ratio 4.6 (0-4.9)
[2017-11-23] MEDS: Heparin 25,000 UNIT/500 ML D5W 25,000 UNIT/500 ML BAG IVC SCH (17:10)
[2017-11-23 17:39] LABS: Estimated Average Glucose 114 mg/dl; Hemoglobin A1C 5.6 %
[2017-11-23] MEDS ORDERED: Metoprolol 100 MG TABLET PO SCH (18:00)
--- NOTE | 2017-11-23 18:10 | Internal Med Progress Note ---
Date of Encounter: 11/23/17 Time of Encounter: 16:00 - Assessment and plan (1) Diabetes Current Visit: Yes Status: Chronic Assessment and plan: Sliding scale insulin, Accu-Cheks before meals at bedtime, diabetic diet Qualifiers: Diabetes mellitus type: type 2 Diabetes mellitus complication status: with kidney complications Diabetes mellitus complication detail: with chronic kidney disease Chronic kidney disease stage: unspecified stage Qualified Code(s): E11.22 - Type 2 diabetes mellitus with diabetic chronic kidney disease (2) Hypertension Current Visit: Yes Status: Chronic Assessment and plan: Patient with mild hypertension. Continue to monitor. Continue medications as written. Qualifiers: Hypertension type: essential hypertension Qualified Code(s): I10 - Essential (primary) hypertension (3) Chest pain, rule out acute myocardial infarction Current Visit: Yes Status: Acute Assessment and plan: She presented to the emergency department with chest pain and jittery feeling, heart rate was 1 the 160s at home, they could not get a break. Initial EKG showed sinus tach with a rate of 116 and no acute T-wave changes. Cardiology reviewed old records, patient had A. fib RVR after knee surgery in 2018, patient denies knowledge of this. Troponins were negative 3 Patient had an LHC today, symptoms are increasing in frequency. Patient reports one-year history of substernal chest pain and palpitations. Patient will have CABG tomorrow, he has been evaluated by Dr. Flores. Continue telemetry Continue heparin drip Nothing by mouth after midnight CABG in the morning (4) Hypokalemia Current Visit: Yes Status: Acute Assessment and plan: Resolved. Continue to monitor. (5) DVT prophylaxis Current Visit: Yes Status: Acute Assessment and plan: Continue heparin gtt - Time Spent With Patient Total time spent is greater than 50% in coordination of care (as documented) at patient's floor/unit and/or counseling patient: less than 15 minutes - Subjective Interval history: Pt was seen and assessed at bedside at 1600, family at bedside. Pt will have CABG tomorrow. He currently denies chest pain, nausea, vomiting, diarrhea or blurred vision, no abdominal pain no peripheral edema. He states he feels well. He is sitting in his bed eating [employer]. - Constitutional Vitals: Temp Pulse Resp BP Pulse Ox 98.2 F 67 17 177/79 96 11/23/17 16:06 11/23/17 16:06 11/23/17 16:06 11/23/17 16:06 11/23/17 16:06 General appearance: Present: cooperative, A&O X 3, pleasant, no acute distress, answers questions appropriately - Head Head exam: Present: atraumatic, normal inspection, normocephalic - Eye Eye exam: Present: normal appearance, conjuntiva pink, sclera anicteric - Neck Neck exam general surgery: Present: supple, trachea midline. Absent: lymphadenopathy, tenderness - Respiratory Respiratory exam: Present: CTAB. Absent: accessory muscle use, rales, respiratory distress, rhonchi, wheezes - Cardiovascular Cardiovascular exam: Present: RRR, +S1, +S2. Absent: diastolic murmur, gallop, rubs, systolic murmur - GI/Abdominal GI/Abdominal exam: Present: normal bowel sounds, soft. Absent: distended, hepatomegaly, tenderness - Extremities Exam Extremities exam: Present: normal capillary refill, normal inspection, warm, radial pulses palpable and symmetrical. Absent: calf tenderness, cyanotic, pedal edema - Neurological Exam Neurological exam: Present: alert, oriented X3, no focal deficits. Absent: facial droop, speech deficit - Skin Skin exam: Present: dry, intact, warm. Absent: rash Internal Medicine: Result - Labs CBC & Chem 7: 11/23/17 00:49 11/23/17 00:49 - ABG Interpretation ABG results: PT/INR, D-dimer PT 11.7 Seconds (9.4-12.1) 11/22/17 16:40 - Impressions Impressions Echocardiogram 11/23/17 20:18 Impressions: LVEF 60-65%. Normal LV chamber size, wall thickness and function. Mild left ventricular diastolic dysfunction. Normal right ventricular structure and function. Mild pulmonary hypertension. No significant valvular dysfunction. Left Ventricular Wall Motion: Rest Echo Findings All wall segments showed normal motion. Findings: Study Quality * Technically adequate exam. ECG Findings * Normal sinus rhythm. Left Ventricle * LVEF 60-65%. * Normal LV chamber size, wall thickness and function. * Mild left ventricular diastolic dysfunction. Right Ventricle * Normal right ventricular structure and function. Left Atrium * Severely dilated left atrium. Right Atrium * Mildly dilated right atrium. Aortic Valve * Trileaflet aortic valve. * Mildly calcified aortic valve leaflets. * Trace aortic regurgitation. * No aortic stenosis. Mitral Valve * Mild mitral annular calcification * No mitral regurgitation. * No mitral stenosis. Tricuspid Valve * Normal tricuspid valve structure and function. * Trace tricuspid regurgitation. * Mild pulmonary hypertension. Pulmonic Valve * Pulmonic valve not well visualized. * No pulmonic regurgitation. Aorta * Normally sized aortic root. Pericardium * The pericardium appears normal. IVC * Normal IVC dimensions and inspiratory collapse. Pulmonary Artery * Normal visualized portions of the main pulmonary artery. - VTE Reasons for not Prescribing Prophylaxis: Medical contraindication Consult Discharge Plan - Plan Referrals: Brandan Lindsay DO [Primary Care Provider] -
[2017-11-23] MEDS: Lisinopril-HCTZ 20-12.5mg TABLET PO SCH (18:12)
[2017-11-23] MEDS ORDERED: Norepinephrine 4 MG in D5% in Water 250 ML IVC PRN (19:19)
[2017-11-23] MEDS ORDERED: Insulin Human Regular 100 UNIT in 0.9 % Sodium Chloride 100 ML IV PRN (19:19)
[2017-11-23] MEDS ORDERED: Dextrose 50 % in Water (Vial) 30 ML, Sodium Bicarbonate 20 MEQ, Potassium Chloride 15 M... TH ONE (19:19)
[2017-11-23] MEDS: Chlorhexidine Rinse 15 ML MOUTHWASH MM SCH (20:41)
[2017-11-24 01:00] LABS: Basophils % 0.7 %; Eosinophils # 0.1 K/mcL (0.0-0.6); Hematocrit 38.2 % (37.5-50.1); Hemoglobin 12.3 g/dL (12.9-16.9); Immature Granulocytes % 0.9 % (0-4); Lymphocytes # 0.8 K/mcL (0.6-4.6); Lymphocytes % 19.6 %; Mean Corpuscular HGB Conc 32.2 g/dL (31.6-35.5); Mean Corpuscular Hemoglobin 29.8 pg (28.0-33.3); Mean Corpuscular Volume 92.5 fL (83.0-100.0); Mean Platelet Volume 10.4 fL (9.4-12.4); Monocytes # 0.3 K/mcL (0.0-1.3); Monocytes % 6.8 %; Platelet Count 238 K/mcL (140-400); Red Blood Count 4.13 M/mcL (4.19-5.50); Red Cell Distribution Width 13.5 % (11.5-14.5)
[2017-11-24 01:18] LABS: BUN/Creatinine Ratio 17 (6-26); Blood Urea Nitrogen 15 mg/dL (8-23); Carbon Dioxide 26 mEq/L (23-29); Chloride 104 mEq/L (98-107); Glucose 133 mg/dL (70-105); Osmolality,Calculated 291 (280-300); Potassium 3.9 mEq/L (3.5-5.1); Sodium 139 mEq/L (136-145); eGFR For African Americans > 60 (> 60); eGFR For Non-African Americans > 60 (> 60)
[2017-11-24] MEDS ORDERED: CeFAZolin Syr 2,000MG/20 ML 2,000 MG/20 ML SYRINGE IVPB ONE (06:00)
[2017-11-24] MEDS ORDERED: Aspirin 81 MG TAB.CHEW PO ONE (06:00)
[2017-11-24] MEDS ORDERED: Verapamil 5 MG/2 ML VIAL ONE (06:40)
--- NOTE | 2017-11-24 06:48 | Electrocardiograph Report ---
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
[2017-11-24] MEDS ORDERED: *HR* Etomidate 20 MG/10 ML AMPUL IVP ONE (06:51)
[2017-11-24] MEDS ORDERED: *HR* PHENYLEPHRINE 1,000 MCG/10 ML SYRINGE IVP ONE ×2 (06:51→09:04)
[2017-11-24] MEDS ORDERED: Tranexamic Acid 1,000 MG/10 ML VIAL ONE ×2 (06:51→10:31)
[2017-11-24] MEDS ORDERED: *HR* Rocuronium Bromide 50 MG/5 ML VIAL ONE (06:51)
[2017-11-24] MEDS ORDERED: Famotidine 20 MG/2 ML VIAL ONE (06:51)
[2017-11-24] MEDS ORDERED: Protamine Sulfate 250 MG/25 ML VIAL IVP ONE (06:51)
[2017-11-24] MEDS ORDERED: *HR* Midazolam HCl 5 MG/5 ML VIAL IVP ONE (06:57)
[2017-11-24] MEDS ORDERED: *HR* FentaNYL (PF) 1,000 MCG/20 ML VIAL ONE (06:58)
[2017-11-24] MEDS ORDERED: NiCARdipine 2.5 MG/10 ML Syringe IVPB ONE (07:01)
[2017-11-24] MEDS ORDERED: Nitroglycerin 25 MG/250 ML INFUS..BTL IVC ONE (07:01)
--- NOTE | 2017-11-24 07:28 | Anesthesia Evaluation PreOp ---
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 Any Significant HX Other Medical History: Renal (renal ds), Diabetes Type II Anesthesia History: No Prior Anesthetic Complications, Past Anesthesia (right TKA) Alcohol Use: none Drug use: none Medications and Allergies Amitriptyline [Elavil] 25 mg PO QPM 03/28/15 [History] Indomethacin [Indocin] 50 mg PO BID PRN 03/28/15 [History] Lisinopril/Hydrochlorothiazide [Zestoretic 20-12.5 mg Tablet] 1 each PO QAM [History] Ferrous Sulfate 325 mg PO BIDWM #60 tablet 07/04/15 [Rx] Allopurinol [Zyloprim 100 MG] 100 mg PO DAILY 11/23/17 [History] Donepezil [Aricept] 5 mg PO DAILY 11/23/17 [History] Fluticasone Propionate Nasal [Flonase] 1 spr NS DAILY 11/23/17 [History] Metoprolol [Lopressor] 100 mg PO QAM 11/23/17 [History] Metoprolol [Lopressor] 200 mg PO QPM 11/23/17 [History] Omeprazole [PriLOSEC] 40 mg PO DAILY 11/23/17 [History] traZODone [TraZODone] 50 - 100 mg PO HS 11/23/17 [History] 3 Allergy/AdvReac Type Severity Reaction Status Date / Time allantoin Allergy Unknown UNKNOWN Verified 11/23/17 11:22 atorvastatin [From Lipitor] Allergy Unknown UNKNOWN Verified 11/23/17 11:22 Sulfa (Sulfonamide Allergy Unknown UNKNOWN Verified 11/23/17 11:22 Antibiotics) - Meds/Allergy Pre-op Review Medications Reviewed: Yes Allergies Reviewed: Yes Beta Blockers on Current Med List: Yes If Beta Blockers taken, Date/Time (Last Dose taken): unknown from chart Anesthesia Results - Labs 11/24/17 00:37 11/24/17 00:37 - Imaging EKG: report reviewed (SINUS TACHYCARDIA POSSIBLE LEFT ATRIAL ENLARGEMENT POSSIBLE LATERAL MYOCARDIAL INFARCTION, PROBABLY OLD) Additional studies: echo: Impressions: LVEF 60-65%. Normal LV chamber size, wall thickness and function. Mild left ventricular diastolic dysfunction. Normal right ventricular structure and function. Mild pulmonary hypertension. No significant valvular dysfunction. Cath: cardiac catheterization today because of his unstable angina. He was found to have severe 3 vessel CAD and an LVEF 60%. 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
[2017-11-24 08:08] LABS: ABG Base Excess 3 mEq/L (-2 to 3); ABG Chloride 105 mEq/L (98-107); ABG Glucose 126 mg/dL (60-95); ABG HCO3 30 mEq/L (21-27); ABG Ionized Calcium 1.21 mmol/L (1.15-1.35); ABG Oxygen Saturation 100 % (95-98); ABG PCO2 59 mmHg (35-45); ABG PH 7.32 pH Units (7.32-7.45); ABG PO2 232 mmHg (85-104); ABG TCO2 32 mEq/L (20-26)
[2017-11-24] MEDS ORDERED: *HR* Amiodarone 150 MG/3 ML VIAL IVPB ONE (08:38)
[2017-11-24] MEDS ORDERED: Amiodarone Premix 360 MG/200 ML BAG IVC ONE (08:39)
[2017-11-24] MEDS ORDERED: Esmolol 100 MG/10 ML VIAL IVP ONE (08:45)
[2017-11-24] MEDS ORDERED: Metoprolol 100 MG TABLET PO SCH (09:00)
[2017-11-24 09:14] LABS: ABG Base Excess -1 mEq/L (-2 to 3); ABG Chloride 108 mEq/L (98-107); ABG Glucose 149 mg/dL (60-95); ABG HCO3 24 mEq/L (21-27); ABG Ionized Calcium 1.05 mmol/L (1.15-1.35); ABG Oxygen Saturation 98 % (95-98); ABG PCO2 41 mmHg (35-45); ABG PH 7.38 pH Units (7.32-7.45); ABG PO2 99 mmHg (85-104); ABG TCO2 26 mEq/L (20-26)
[2017-11-24 09:52] LABS: ABG Base Excess 2 mEq/L (-2 to 3); ABG Chloride 102 mEq/L (98-107); ABG Glucose 141 mg/dL (60-95); ABG HCO3 27 mEq/L (21-27); ABG Oxygen Saturation 100 % (95-98); ABG PCO2 40 mmHg (35-45); ABG PH 7.44 pH Units (7.32-7.45); ABG PO2 594 mmHg (85-104); ABG TCO2 28 mEq/L (20-26)
[2017-11-24 10:18] LABS: ABG Base Excess 5 mEq/L (-2 to 3); ABG Chloride 99 mEq/L (98-107); ABG Glucose 167 mg/dL (60-95); ABG HCO3 30 mEq/L (21-27); ABG Oxygen Saturation 100 % (95-98); ABG PCO2 43 mmHg (35-45); ABG PH 7.44 pH Units (7.32-7.45); ABG PO2 452 mmHg (85-104); ABG TCO2 31 mEq/L (20-26)
[2017-11-24] MEDS ORDERED: Albumin Human 5% 50.0 GM/1,000 ML VIAL ONE (10:52)
[2017-11-24 11:07] LABS: ABG Base Excess 0 mEq/L (-2 to 3); ABG Chloride 105 mEq/L (98-107); ABG Glucose 65 mg/dL (60-95); ABG HCO3 25 mEq/L (21-27); ABG Ionized Calcium 1.24 mmol/L (1.15-1.35); ABG Oxygen Saturation 95 % (95-98); ABG PCO2 40 mmHg (35-45); ABG PO2 74 mmHg (85-104); ABG TCO2 26 mEq/L (20-26)
[2017-11-24] MEDS ORDERED: Ondansetron 4 MG/2 ML VIAL IVP PRN (11:16)
[2017-11-24] MEDS ORDERED: Potassium Chloride 40 MEQ/200 ML BAG IVPB PRN (11:16)
[2017-11-24] MEDS ORDERED: *HR* Dextrose 50 % in Water (Syg) 50 ML SYRINGE IVP PRN (11:16)
[2017-11-24] MEDS ORDERED: *HR* Promethazine 25 MG/ML VIAL IVP PRN (11:16)
[2017-11-24] MEDS ORDERED: Insulin Regular, Human 100 UNIT/ML IV PRN (11:16)
[2017-11-24] MEDS ORDERED: Acetaminophen 325 MG TABLET PO PRN (11:16)
[2017-11-24] MEDS: Amiodarone Premix 360 MG/200 ML BAG IVC ONE ×2 (11:25→14:35)
[2017-11-24] MEDS ORDERED: Insulin Human Regular 100 UNIT in 0.9 % Sodium Chloride 100 ML IVC SCH (11:30)
[2017-11-24 11:54] LABS: ABG Base Excess 2 mEq/L (-2 to 3); ABG HCO3 27 mEq/L (21-27); ABG Oxygen Saturation 100 % (95-98); ABG PCO2 42 mmHg (35-45); ABG PH 7.41 pH Units (7.32-7.45); ABG PO2 192 mmHg (85-104); ABG TCO2 28 mEq/L (20-26); Blood Gas Modality ASSIST CONTROL; Blood Gas PEEP 5 cm H2O; Blood Gas Respiration Rate 10; Blood Gas VT 700 cc
[2017-11-24 12:03] LABS: Basophils % 0.4 %; Eosinophils # 0.2 K/mcL (0.0-0.6); Eosinophils % 2.5 %; Hematocrit 31.6 % (37.5-50.1); Immature Granulocytes % 1.7 % (0-4); Lymphocytes # 0.8 K/mcL (0.6-4.6); Lymphocytes % 7.9 %; Mean Corpuscular HGB Conc 33.5 g/dL (31.6-35.5); Mean Corpuscular Volume 92.4 fL (83.0-100.0); Monocytes # 0.4 K/mcL (0.0-1.3); Monocytes % 3.7 %; Neutrophils # 8.1 K/mcL (1.6-8.9); Platelet Count 141 K/mcL (140-400); Red Blood Count 3.42 M/mcL (4.19-5.50); Red Cell Distribution Width 13.5 % (11.5-14.5); Segmented Neutrophils % 83.8 %
--- NOTE | 2017-11-24 12:05 | Anesthesia Procedures ---
Date of Encounter: 11/24/17 Time of Encounter: 07:50 Procedures: Anesthesia - Arterial Line Consent obtained: written consent Time out performed: Yes Sedation: Versed (mg): 2 Sedation: Fentanyl (mcg): 100 Supplemental Oxygen via Nasal Cannula (L/min): 2 Local Anesthetic: Lidocaine 1% Amount of Anesthetic used (mls): 1 Size (Gauge): 20 Length (inches): 5 Technique Used: sterile prep, guide wire technique, direct puncture technique Post-Procedure: line taped into place, dry sterile dressing placed Patient tolerated procedure: well, no complications Complications: none Site: Radial L - Central Line Placement Right IJ Consent obtained: written consent Time out performed: Yes Patient placed on monitor/pulse ox: Yes prep: mask, gown, gloves Central line prep: Chlorhexidine scrub, sterile drapes applied Ultrasound used for placement: Yes Technique: Seldinger Lumen Inserted: Introducer Post procedure: sutured in place, good blood return, all ports aspirated, flushed, capped, sterile dressing applied Patient tolerated procedure: well, no complications Complications: none (introducern placed easily, swan placed without arrythmia, wedge approx 56cm)
[2017-11-24 12:06] LABS: INR 1.5; Prothrombin Time 15.8 Seconds (9.4-12.1)
[2017-11-24] MEDS: Nitroglycerin 25 MG/250 ML INFUS..BTL IVC SCH ×2 (12:10→21:11)
[2017-11-24 12:11] LABS: Hemoglobin 10.6 g/dL (12.9-16.9)
[2017-11-24 12:12] LABS: Activated Partial Thrombo Time 29.1 Seconds (26.0-36.0)
[2017-11-24 12:15] LABS: BUN/Creatinine Ratio 14 (6-26); Blood Urea Nitrogen 12 mg/dL (8-23); Calcium 8.5 mg/dL (8.6-10.3); Carbon Dioxide 26 mEq/L (23-29); Chloride 107 mEq/L (98-107); Glucose 106 mg/dL (70-105); Magnesium 2.3 mg/dL (1.6-2.6); Osmolality,Calculated 288 (280-300); Potassium 3.9 mEq/L (3.5-5.1); Sodium 139 mEq/L (136-145); eGFR For African Americans > 60 (> 60); eGFR For Non-African Americans > 60 (> 60)
[2017-11-24] MEDS: 0.9 % Sodium Chloride w KCl 20 MEQ/1,000 ML MLS IVC SCH (12:24)
[2017-11-24] MEDS: *HR* FentaNYL (PF) 100 MCG/2 ML VIAL IVP PRN ×3 (12:33→18:06)
[2017-11-24] MEDS: niCARdipine 40 MG/200 ML MLS IVC SCH ×2 (12:34→20:42)
[2017-11-24] MEDS: Chlorhexidine Rinse 15 ML MOUTHWASH MM SCH ×2 (12:42→21:12)
--- NOTE | 2017-11-24 12:48 | Operative Note ---
Date of procedure: 11/24/17 Was there an speech language pathologist assistant present: Yes Catering Staff Member: Justin Womack Estimated blood loss (cc): 750 Specimen: none Condition: stable Disposition: ICU Procedure in Detail: Preoperative diagnosis. Coronary artery disease and paroxysmal atrial fibrillation. Procedures. Coronary artery bypass grafting 2, with the left internal mammary artery to the LAD and the aorta to the posterior descending branch of the right coronary artery with saphenous vein. Also, modified Maze procedure with radiofrequency isolation of the pulmonary veins and left atrial appendage stapling. Surgeon. Dr. Poli Storey. The patient is a 77-year- old gentleman who presented with chest pain and paroxysmal atrial fibrillation. Cardiac catheterization revealed severe coronary artery disease and he was referred for surgery. He was brought to the operating room where he was prepped and draped in standard fashion. The right greater saphenous vein was harvested from the right knee up to the right groin. This was done through 2 small incisions using the scope. These incisions were subsequently closed with a deep layer of 2-0 Vicryl and a 3-0 Vicryl subcuticular stitch. Standard median sternotomy was performed. The left internal mammary artery retractor was inserted in the left internal mammary artery was harvested in standard fashion using the Bovie electrocoagulation. The mammary retractor was removed and the standard sternal song lyricist was inserted. Pericardium was opened in the midline and suspended with 2-0 silk stay sutures. A double pursestring of 20 [place] was placed in the aorta for the aortic cannulation site. A pursestring of 20 Surgilon was placed in the right atrial appendage for the venous uptake. The aorta was cannulated without difficulty. 2 stage venous uptake cannula was inserted through the right atrial appendage. A pursestring of 3-0 silk was placed in the aorta and the cardioplegia needle was inserted through here. This was also used is an active and passive aortic vent. The patient was placed on cardiopulmonary bypass. The right superior and inferior veins were isolated first. A clamp was placed around the veins followed by a red rubber catheter. Bipolar radiofrequency ablation was then used to isolate the veins. Next we turned our attention to the left side. A clamp was placed around the left superior and inferior pulmonary veins. This was followed by a red rubber catheter. The veins were then isolated using bipolar radiofrequency ablation. Finally, we stapled the left atrial appendage using a FAITH stapler with the knife removed. At this point, the aorta was crossclamped and a liter of antegrade cardioplegia was given. Topical cooling with iced saline slush was also done. Attention was turned to the circumflex. The distal circumflex was too small and diffusely diseased for grafting. Attention was next turned to the right coronary artery. The posterior descending branch was dissected free with the [place] blade and opened with the [place] blade and the Alves scissors. This had a lumen of 1-1/2 mm and was relatively free of disease. A standard end to side anastomosis was constructed using the saphenous vein and a 7-0 Prolene. When this was completed, the patient received her last dose of antegrade cardioplegia. Mammary pedicle was harvested. Tonsil clamp was placed distally and it was divided with the Metzenbaum scissors. The distal end was tied off using a 2-0 silk suture. The proximal end was trimmed and brought into the wound. The LAD was found to have diffuse calcific disease. It was opened distally with the [place] blade and the Alves scissors and had a lumen of 1-1/2 mm. A standard end-to-side anastomosis was constructed using a mammary artery and a 7-0 Prolene. When this is completed, the pedicle was tacked to surface heart using 2 interrupted 5-0 silk sutures. The previously placed bulldog clamp was removed and the hemostasis was good. Cross-clamp was removed. A side-biting clamp was placed on the aorta. The cardioplegia needle was removed. A hole was made in the aorta using the [place] blade and a 4.4 mm aortic punch. A standard proximal anastomosis was constructed using the saphenous vein and a 5-0 Prolene. When this is completed, the side-biting clamp was removed. The graft was de-aired with a #25-gauge needle and the previously placed bulldog clamp was removed. Distal anastomoses were inspected and found to be hemostatic. Proximal anastomosis was marked with a marker from [facility]. A pair of atrial and ventricular pacing wires was left. A total of 3 chest tubes were left. A 32 right angle chest tube in the left pleural space. A 32 right angle chest tube into the pericardial well. A 42 mediastinal chest tube. The patient was weaned from bypass and was paced in the AAI mode. Pericardium was left open. We used platelet rich and platelet poor plasma on the sternum and tissues above the sternum. Sternum was closed with #7 sternal wires in simple and [id number] fashion. Fascia was run with #1 Vicryl. Subcutaneous tissues with a 2-0 Vicryl. Skin was closed with a 3-0 Vicryl subcuticular stitch. The patient tolerated the procedure well and was returned to intensive care unit in satisfactory and stable condition. Total bypass time 62 minutes. Total cross-clamp time 28 minutes. He been cooled to 35.6 degrees.
[2017-11-24] MEDS: *HR* OxyCODONE/APAP 5/325 TABLET PO PRN ×2 (12:56→21:12)
[2017-11-24] MEDS ORDERED: *HR* Magnesium Sulfate 2 GM/50 ML PIGGYBACK IVPB ONE (14:20)
[2017-11-24] MEDS ORDERED: *HR* Heparin 10,000 UNIT/10 ML VIAL IV ONE (14:20)
[2017-11-24] MEDS ORDERED: Albumin Human 25% 25 GM/100 ML IV.SOLN IV ONE (14:20)
[2017-11-24] MEDS ORDERED: *HR* Phenylephrine 10 MG/ML VIAL IVC ONE (14:20)
[2017-11-24] MEDS ORDERED: Mannitol 25% vial 12.5 GM/50 ML VIAL IVP ONE (14:20)
[2017-11-24] MEDS ORDERED: Tranexamic Acid 1,000 MG/10 ML VIAL IVPB ONE (14:20)
[2017-11-24] MEDS ORDERED: Lidocaine 2% Syringe 100 MG/5 ML IV ONE (14:20)
[2017-11-24] MEDS: Amiodarone Premix 360 MG/200 ML BAG IVC SCH (14:39)
[2017-11-24 15:24] LABS: ABG Base Excess -2 mEq/L (-2 to 3); ABG HCO3 24 mEq/L (21-27); ABG Oxygen Saturation 96 % (95-98); ABG PCO2 45 mmHg (35-45); ABG PH 7.33 pH Units (7.32-7.45); ABG PO2 86 mmHg (85-104); ABG TCO2 26 mEq/L (20-26); Blood Gas Modality ASSIST CONTROL; Blood Gas PEEP 5 cm H2O; Blood Gas Respiration Rate 10; Blood Gas VT 700 cc
--- NOTE | 2017-11-24 16:01 | Internal Med Progress Note ---
Date of Encounter: 11/24/17 Time of Encounter: 15:59 - Assessment and plan (1) S/P CABG x 2 Current Visit: Yes Status: Acute Assessment and plan: Underwent CABG X2 with left internal mammary artery to the LAD and aorta to the posterior descending branch of the right coronary artery with saphenous vein. Cardiothoracic surgery managing, patient now in ICU Hospitalist team to resume following upon stepdown from intensive care unit (2) CAD (coronary artery disease), telida coronary artery Current Visit: Yes Status: Acute Assessment and plan: Severe three-vessel CAD, underwent CABG today Resume cardiac medications per cardiothoracic surgery Qualifiers: [place] vs. transplanted heart: telida heart Associated angina: with unstable angina Qualified Code(s): I25.110 - Atherosclerotic heart disease of telida coronary artery with unstable angina pectoris (3) Chest pain, rule out acute myocardial infarction Current Visit: Yes Status: Acute Assessment and plan: Presented to [facility] with chest pain and anginal equivalent. This is recurrent, due to recurrent episodes LHC performed and found severe triple-vessel CAD. 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 However, they have been on hold today as the patient has underwent a CABG. Resume anti-HTN medications per cardiothoracic surgeon Qualifiers: Hypertension type: essential hypertension Qualified Code(s): I10 - Essential (primary) hypertension (6) Hypokalemia Current Visit: Yes Status: Acute Assessment and plan: Resolved (7) DVT prophylaxis Current Visit: Yes Status: Acute Assessment and plan: On heparin drip status post CABG, being managed per cardiothoracic surgery - Time Spent With Patient Total time spent is greater than 50% in coordination of care (as documented) at patient's floor/unit and/or counseling patient: 25 - 35 minutes - Subjective Interval history: No acute events overnight, patient seen and examined today S/P CABG. Presented to the ED for chest pain with anginal equivalent. Troponin negative 3, [facility] completed finding severe three-vessel CAD. Underwent CABG today with left internal mammary artery to the LAD and aorta to the posterior descending branch of the right coronary artery with saphenous vein. Unable to ascertain any additional information from the patient this time as he is intubated S/P CABG - Constitutional Vitals: Temp Pulse Resp BP Pulse Ox 98.6 F 75 21 161/86 99 11/24/17 06:43 11/24/17 06:43 11/24/17 15:42 11/24/17 06:43 11/24/17 15:42 General appearance: Present: A&O X 1 Exam: s/p CABG, intubated - Head Head exam: Present: atraumatic, normocephalic - Eye Eye exam: Present: PERRL, conjuntiva pink, sclera anicteric Pupils: Present: PERRL - Neck Neck exam general surgery: Present: supple, trachea midline. Absent: lymphadenopathy - Respiratory Respiratory exam: Present: CTAB. Absent: accessory muscle use, rales, rhonchi, wheezes - Cardiovascular Cardiovascular exam: Present: RRR, +S1, +S2. Absent: diastolic murmur, gallop, rubs, systolic murmur - GI/Abdominal GI/Abdominal exam: Present: normal bowel sounds, soft, no peritoneal signs. Absent: distended, tenderness - Extremities Exam Extremities exam: Present: warm, radial pulses palpable and symmetrical. Absent : calf tenderness, cyanotic, pedal edema - Neurological Exam Neurological exam: Present: CN II-XII intact, oriented X3, no focal deficits. Absent: pronater drift, facial droop, speech deficit - Skin Skin exam: Absent: intact Additional comments: midsternal incision s/p CABG Internal Medicine: Result - Labs CBC & Chem 7: 11/24/17 11:50 11/24/17 15:20 Labs: Short CBC 11/24/17 11/24/17 Range/Units 00:37 11:50 WBC 4.3 9.7 D (4.3-11.1) K/mcL Hgb 12.3 L 10.6 L D (12.9-16.9) g/dL Hct 38.2 31.6 L (37.5-50.1) % Plt Count 238 141 (140-400) K/mcL Neutrophils # 3.0 8.1 (1.6-8.9) K/mcL BMP 11/24/17 11/24/17 11/24/17 00:37 11:50 15:20 Sodium 139 139 Potassium 3.9 3.9 3.5 Chloride 104 107 Carbon Dioxide 26 26 BUN 15 12 Creatinine 0.89 0.86 Glucose 133 H 106 H Calcium 9.0 8.5 L - ABG Interpretation ABG results: ABG ABG pH 7.33 pH Units (7.32-7.45) 11/24/17 15:21 ABG pCO2 45 mmHg (35-45) 11/24/17 15:21 ABG pO2 86 mmHg (85-104) D 11/24/17 15:21 ABG O2 Saturation 96 % (95-98) 11/24/17 15:21 PT/INR, D-dimer PT 15.8 Seconds (9.4-12.1) H 11/24/17 11:50 - Impressions Impressions Chest X-Ray 11/24/17 11:16 IMPRESSION: 1. Postoperative chest x-ray with tubes and lines as discussed above. I would suggest advancing the nasogastric tube into the stomach. 2. Cardiomegaly with vascular congestion. 3. Left pleural effusion and bibasilar atelectasis. D/ / Luís Traylor MD / Luís Traylor MD Interpreting Provider: Luís Traylor MD X-Ray 11/24/17 11:16 IMPRESSION: 1. Nasogastric tube with its tip in the region of the gastroesophageal junction. This does need to be advanced into the stomach prior to use. D/ / Luís Traylor MD / Luís Traylor MD Interpreting Provider: Luís Traylor MD - VTE Reasons for not Prescribing Prophylaxis: Medical contraindication Consult Discharge Plan - Plan Referrals: Brandan Lindsay DO [Primary Care Provider] -
[2017-11-24] MEDS: CeFAZolin Pre 2,000 MG/100 ML 2,000 MG/100 ML BAG IVPB SCH (16:20)
--- NOTE | 2017-11-24 16:31 | Electrocardiograph Report ---
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
[2017-11-24 17:57] LABS: ABG Base Excess -1 mEq/L (-2 to 3); ABG HCO3 25 mEq/L (21-27); ABG Oxygen Saturation 95 % (95-98); ABG PCO2 42 mmHg (35-45); ABG PH 7.37 pH Units (7.32-7.45); ABG PO2 79 mmHg (85-104); ABG TCO2 26 mEq/L (20-26)
[2017-11-24] MEDS: Dextrose 50 % in Water (Vial) 30 ML, Sodium Bicarbonate 20 MEQ, Lidocaine 1% 5 ML, Insu... TH SCH (19:21)
[2017-11-24] MEDS: Heparin 15,000 UNIT in 0.9 % Sodium Chloride 500 ML IV SCH (19:21)
[2017-11-24] MEDS: Lisinopril-HCTZ 20-12.5mg TABLET PO SCH (19:21)
[2017-11-24] MEDS: Norepinephrine 4 MG in D5% in Water 250 ML IVC SCH (19:23)
[2017-11-24] MEDS: Heparin 25,000 UNIT/500 ML D5W 25,000 UNIT/500 ML BAG IVC SCH (19:26)
[2017-11-24] MEDS: Insulin LISPRO 300 UNITS/3 ML VIAL SQ SCH ×2 (20:53→20:54)
[2017-11-25] MEDS: Dextrose 50 % in Water (Vial) 30 ML, Sodium Bicarbonate 20 MEQ, Lidocaine 1% 5 ML, Insu... TH SCH (00:43)
[2017-11-25] MEDS: Heparin 15,000 UNIT in 0.9 % Sodium Chloride 500 ML IV SCH (00:43)
[2017-11-25] MEDS: CeFAZolin Pre 2,000 MG/100 ML 2,000 MG/100 ML BAG IVPB SCH (00:43)
[2017-11-25] MEDS: niCARdipine 40 MG/200 ML MLS IVC SCH ×3 (00:43→18:31)
[2017-11-25] MEDS: 0.9 % Sodium Chloride w KCl 20 MEQ/1,000 ML MLS IVC SCH (01:28)
[2017-11-25] MEDS: Amiodarone Premix 360 MG/200 ML BAG IVC SCH (01:28)
[2017-11-25 03:23] LABS: Basophils % 0.2 %; Hematocrit 31.6 % (37.5-50.1); Hemoglobin 10.2 g/dL (12.9-16.9); Immature Granulocytes % 0.6 % (0-4); Lymphocytes # 0.6 K/mcL (0.6-4.6); Lymphocytes % 6.1 %; Mean Corpuscular HGB Conc 32.3 g/dL (31.6-35.5); Mean Corpuscular Hemoglobin 30.4 pg (28.0-33.3); Monocytes # 0.6 K/mcL (0.0-1.3); Monocytes % 5.8 %; Platelet Count 163 K/mcL (140-400); Red Blood Count 3.36 M/mcL (4.19-5.50); Segmented Neutrophils % 87.3 %
[2017-11-25 03:29] LABS: INR 1.2; Prothrombin Time 13.3 Seconds (9.4-12.1)
[2017-11-25 03:31] LABS: Activated Partial Thrombo Time 25.6 Seconds (26.0-36.0)
[2017-11-25 03:52] LABS: BUN/Creatinine Ratio 16 (6-26); Blood Urea Nitrogen 15 mg/dL (8-23); Calcium 8.1 mg/dL (8.6-10.3); Carbon Dioxide 24 mEq/L (23-29); Chloride 107 mEq/L (98-107); Glucose 157 mg/dL (70-105); Magnesium 1.9 mg/dL (1.6-2.6); Osmolality,Calculated 288 (280-300); Potassium 4.8 mEq/L (3.5-5.1); Sodium 137 mEq/L (136-145); eGFR For African Americans > 60 (> 60); eGFR For Non-African Americans > 60 (> 60)
[2017-11-25] MEDS: *HR* OxyCODONE/APAP 5/325 TABLET PO PRN ×4 (04:02→23:03)
[2017-11-25] MEDS: Lisinopril-HCTZ 20-12.5mg TABLET PO SCH ×2 (06:51→07:59)
--- NOTE | 2017-11-25 07:08 | Cardiothoracic Progress Note ---
Date of Encounter: 11/25/17 Time of Encounter: 07:06 - Assessment and plan (1) CAD (coronary artery disease), [place] coronary artery Current Visit: Yes Status: Acute The assessment and plan as outlined above was discussed with the patient and/or family members who expressed understanding and agreement. All questions were answered. We will leave the patient in the ICU today. We will discontinue his [place] catheter and arterial line. We will leave his Ledezma in until tomorrow per the patient's request and until his chest tubes are removed. We will discontinue his amiodarone drip and place him on by mouth amiodarone. Qualifiers: [place] vs. transplanted heart: [place] heart Associated angina: with unstable angina Qualified Code(s): I25.110 - Atherosclerotic heart disease of [place] coronary artery with unstable angina pectoris - Subjective Interval history: The patient complains of mild postoperative pain. Vital Signs, Last 4 Hours Temp Pulse Resp BP Pulse Ox 11/25/17 07:00 98 F 64 21 122/55 97 11/25/17 06:00 97.8 F 79 24 124/53 97 11/25/17 05:00 98 F 79 26 125/54 96 11/25/17 04:00 98 F 79 23 122/54 97 11/25/17 03:38 21 126/57 97 Oxgyen Flow Rate Oxygen Flow Rate (LPM) 3 Clinical Data, last 8 Hours Output, Chest Tube Drainage 0 Amount [Mediastinal #3] Output, Chest Tube Drainage 0 Amount [Mediastinal #3] Output, Chest Tube Drainage 0 Amount [Mediastinal #3] Output, Chest Tube Drainage 0 Amount [Mediastinal #3] Output, Chest Tube Drainage 0 Amount [Mediastinal #3] Output, Chest Tube Drainage 0 Amount [Mediastinal #3] Output, Chest Tube Drainage 0 Amount [Mediastinal #3] Output, Chest Tube Drainage 5 Amount [Mediastinal #3] Output, Chest Tube Drainage 0 Amount [Mediastinal #2] Output, Chest Tube Drainage 0 Amount [Mediastinal #2] Output, Chest Tube Drainage 10 Amount [Mediastinal #2] Output, Chest Tube Drainage 0 Amount [Mediastinal #2] Output, Chest Tube Drainage 4 Amount [Mediastinal #2] Output, Chest Tube Drainage 8 Amount [Mediastinal #2] Output, Chest Tube Drainage 12 Amount [Mediastinal #2] Output, Chest Tube Drainage 10 Amount [Mediastinal #2] Output, Chest Tube Drainage 10 Amount [Mediastinal #1] Output, Chest Tube Drainage 20 Amount [Mediastinal #1] Output, Chest Tube Drainage 10 Amount [Mediastinal #1] Output, Chest Tube Drainage 10 Amount [Mediastinal #1] Output, Chest Tube Drainage 20 Amount [Mediastinal #1] Output, Chest Tube Drainage 0 Amount [Mediastinal #1] Output, Chest Tube Drainage 15 Amount [Mediastinal #1] Output, Chest Tube Drainage 30 Amount [Mediastinal #1] Weight 11/23/17 11/24/17 11/25/17 23:59 23:59 23:59 Weight 94.1 kg Lungs are clear to percussion and auscultation. Heart is in a normal sinus rhythm with a sinus bradycardia. All incisions are healing well without signs of infection and the sternum is stable. Chest tube drainage is minimal and there is no air leak. - Labs 11/25/17 03:08 11/25/17 03:08 Lab Results, Last 24 hours 11/24/17 11/24/17 11/24/17 11:50 11:50 11:50 WBC 9.7 D Hgb 10.6 L D Hct 31.6 L Plt Count 141 INR 1.5 APTT 29.1 D Sodium 139 Potassium 3.9 Chloride 107 Carbon Dioxide 26 BUN 12 Creatinine 0.86 Glucose 106 H Calcium 8.5 L Magnesium 2.3 11/24/17 11/25/17 11/25/17 15:20 03:08 03:08 WBC 10.3 Hgb 10.2 L Hct 31.6 L Plt Count 163 INR APTT Sodium 137 Potassium 3.5 4.8 D Chloride 107 Carbon Dioxide 24 BUN 15 Creatinine 0.93 Glucose 157 H Calcium 8.1 L Magnesium 1.9 11/25/17 03:08 WBC Hgb Hct Plt Count INR 1.2 APTT 25.6 L Sodium Potassium Chloride Carbon Dioxide BUN Creatinine Glucose Calcium Magnesium - VTE Reasons for not Prescribing Prophylaxis: Medical contraindication Documentation of Mechanical Device: Graduated compression elastic hosiery Consult Discharge Plan - Plan Referrals: Brandan Lindsay DO [Primary Care Provider] -
[2017-11-25] MEDS ORDERED: Furosemide 20 MG/2 ML VIAL IVP ONE (07:11)
--- NOTE | 2017-11-25 07:54 | Internal Med Progress Note ---
Date of Encounter: 11/25/17 Time of Encounter: 07:45 - Assessment and plan (1) S/P CABG x 2 Current Visit: Yes Status: Acute Assessment and plan: Underwent CABG X2 with left internal mammary artery to the LAD and aorta to the posterior descending branch of the right coronary artery with saphenous vein. Cardiothoracic surgery managing, patient now in ICU. 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 However, they have been on hold today as the patient has underwent a CABG. Resume anti-HTN medications per cardiothoracic surgeon Qualifiers: Hypertension type: essential hypertension Qualified Code(s): I10 - Essential (primary) hypertension (4) Chest pain, rule out acute myocardial infarction Current Visit: Yes Status: Acute Assessment and plan: Presented to [facility] with chest pain and anginal equivalent. This is recurrent, due to recurrent episodes C performed and found severe triple-vessel CAD. Underwent a CABG yesterday (5) Hypokalemia Current Visit: Yes Status: Acute Assessment and plan: Resolved (6) DVT prophylaxis Current Visit: Yes Status: Acute Assessment and plan: On heparin drip status post CABG, being managed per cardiothoracic surgery (7) CAD (coronary artery disease), [place] coronary artery Current Visit: Yes Status: Acute Assessment and plan: Severe three-vessel CAD, underwent CABG yesterday Resume cardiac medications per cardiothoracic surgery Qualifiers: [place] vs. transplanted heart: [place] heart Associated angina: with unstable angina Qualified Code(s): I25.110 - Atherosclerotic heart disease of [place] coronary artery with unstable angina pectoris - Time Spent With Patient Total time spent is greater than 50% in coordination of care (as documented) at patient's floor/unit and/or counseling patient: - Subjective Interval history: s/p CABG - Constitutional Vitals: Temp Pulse Resp BP Pulse Ox 98 F 64 18 122/55 97 11/25/17 07:00 11/25/17 07:00 11/25/17 07:37 11/25/17 07:00 11/25/17 07:37 General appearance: Present: A&O X 1 - Head Head exam: Present: atraumatic, normocephalic - Eye Eye exam: Present: PERRL, conjuntiva pink, sclera anicteric Pupils: Present: PERRL - Neck Neck exam general surgery: Present: supple, trachea midline. Absent: lymphadenopathy - Respiratory Respiratory exam: Present: CTAB. Absent: accessory muscle use, rales, rhonchi, wheezes - Cardiovascular Cardiovascular exam: Present: RRR, +S1, +S2. Absent: diastolic murmur, gallop, rubs, systolic murmur - GI/Abdominal GI/Abdominal exam: Present: normal bowel sounds, soft, no peritoneal signs. Absent: distended, tenderness - Extremities Exam Extremities exam: Present: warm, radial pulses palpable and symmetrical. Absent : calf tenderness, cyanotic, pedal edema - Neurological Exam Neurological exam: Present: CN II-XII intact, oriented X3, no focal deficits. Absent: pronater drift, facial droop, speech deficit - Skin Skin exam: Present: dry, intact Internal Medicine: Result - Labs CBC & Chem 7: 11/25/17 03:08 11/25/17 03:08 Labs: Short CBC 11/24/17 11/25/17 Range/Units 11:50 03:08 WBC 9.7 D 10.3 (4.3-11.1) K/mcL Hgb 10.6 L D 10.2 L (12.9-16.9) g/dL Hct 31.6 L 31.6 L (37.5-50.1) % Plt Count 141 163 (140-400) K/mcL Neutrophils # 8.1 9.0 H (1.6-8.9) K/mcL BMP 11/24/17 11/24/17 11/25/17 11:50 15:20 03:08 Sodium 139 137 Potassium 3.9 3.5 4.8 D Chloride 107 107 Carbon Dioxide 26 24 BUN 12 15 Creatinine 0.86 0.93 Glucose 106 H 157 H Calcium 8.5 L 8.1 L - ABG Interpretation ABG results: ABG ABG pH 7.37 pH Units (7.32-7.45) 11/24/17 17:52 ABG pCO2 42 mmHg (35-45) 11/24/17 17:52 ABG pO2 79 mmHg (85-104) L 11/24/17 17:52 ABG O2 Saturation 95 % (95-98) 11/24/17 17:52 PT/INR, D-dimer PT 13.3 Seconds (9.4-12.1) H 11/25/17 03:08 - Impressions Impressions Chest X-Ray 11/24/17 11:16 IMPRESSION: 1. Postoperative chest x-ray with tubes and lines as discussed above. I would suggest advancing the nasogastric tube into the stomach. 2. Cardiomegaly with vascular congestion. 3. Left pleural effusion and bibasilar atelectasis. D/ / Luís Traylor MD / Luís Traylor MD Interpreting Provider: Luís Traylor MD X-Ray 11/24/17 11:16 IMPRESSION: 1. Nasogastric tube with its tip in the region of the gastroesophageal junction. This does need to be advanced into the stomach prior to use. D/ / Luís Traylor MD / Luís Traylor MD Interpreting Provider: Luís Traylor MD Chest X-Ray 11/25/17 04:00 IMPRESSION: 1. Improving left basilar pleuroparenchymal disease. 2. Tubes and lines as above. D/ / Rajan Segundo MD / Rajan Segundo MD Interpreting Provider: Rajan Segundo MD - VTE Reasons for not Prescribing Prophylaxis: Medical contraindication Documentation of Mechanical Device: Graduated compression elastic hosiery Consult Discharge Plan - Plan Referrals: Brandan Lindsay DO [Primary Care Provider] -
[2017-11-25] MEDS: Chlorhexidine Rinse 15 ML MOUTHWASH MM SCH ×2 (07:58→19:40)
[2017-11-25] MEDS: *HR* Amiodarone 200 MG TABLET PO SCH ×2 (07:59→19:40)
[2017-11-25] MEDS: Nitroglycerin 25 MG/250 ML INFUS..BTL IVC SCH ×3 (08:00→22:10)
[2017-11-25] MEDS: Norepinephrine 4 MG in D5% in Water 250 ML IVC SCH (10:40)
--- NOTE | 2017-11-25 10:43 | Anesthesia Evaluation Post Op ---
Date of Encounter: 11/25/17 Time of Encounter: 09:30 - Vital Signs Vital Signs: Selected Entries 11/25/17 08:00 11/25/17 09:00 11/25/17 10:00 Temperature 98.3 F Pulse Rate 80 Respiratory Rate 18 Blood Pressure 124/64 O2 Sat by Pulse Oximetry 97 Oxygen Delivery Method Nasal Cannula - Lungs Lungs: Clear Ascult./Percussion - Airway Airway: Non-obstructed - Cardiovascular Regular Rate - Mental Status Mental Status: Alert & Oriented, Answers Appropriately - Pain Pain Scale: 2 Pain Scale used: Numeric (1 - 10) - Nausea Vomiting Nausea Vomiting: Not Present - Hydration Hydration: Tolerates oral liquids, Ledezma catheter Notes: 11/25/17 10:42 POD #1 CABG. Doing well. No apparent anesthesia complications. Disposition per CT surgery.
[2017-11-25] MEDS ORDERED: D5% in Water 1,000 ML IVC PRN (11:20)
[2017-11-25] MEDS ORDERED: Dextrose Gel 15 GM/37.5 ML TUBE PO PRN ×2 (11:20)
[2017-11-25] MEDS ORDERED: *HR* Dextrose 50 % in Water (Syg) 50 ML SYRINGE IVP PRN (11:20)
[2017-11-25] MEDS: *HR* FentaNYL (PF) 100 MCG/2 ML VIAL IVP PRN ×2 (12:02→13:43)
[2017-11-25] MEDS: Insulin LISPRO 300 UNITS/3 ML VIAL SQ SCH ×2 (12:09→16:33)
[2017-11-25] MEDS ORDERED: Insulin LISPRO 300 UNITS/3 ML VIAL SQ SCH (21:00)
[2017-11-26] MEDS: niCARdipine 40 MG/200 ML MLS IVC SCH (04:13)
[2017-11-26 04:47] LABS: Basophils % 0.1 %; Hematocrit 31.9 % (37.5-50.1); Hemoglobin 10.1 g/dL (12.9-16.9); Immature Granulocytes % 0.9 % (0-4); Lymphocytes # 0.7 K/mcL (0.6-4.6); Lymphocytes % 4.8 %; Mean Corpuscular HGB Conc 31.7 g/dL (31.6-35.5); Mean Corpuscular Hemoglobin 29.7 pg (28.0-33.3); Mean Corpuscular Volume 93.8 fL (83.0-100.0); Mean Platelet Volume 10.6 fL (9.4-12.4); Monocytes # 1.2 K/mcL (0.0-1.3); Platelet Count 151 K/mcL (140-400); Red Cell Distribution Width 14.2 % (11.5-14.5); Segmented Neutrophils % 86.2 %
[2017-11-26 05:04] LABS: BUN/Creatinine Ratio 24 (6-26); Blood Urea Nitrogen 20 mg/dL (8-23); Calcium 8.4 mg/dL (8.6-10.3); Carbon Dioxide 25 mEq/L (23-29); Chloride 98 mEq/L (98-107); Glucose 152 mg/dL (70-105); Osmolality,Calculated 276 (280-300); Potassium 4.2 mEq/L (3.5-5.1); Sodium 130 mEq/L (136-145); eGFR For African Americans > 60 (> 60); eGFR For Non-African Americans > 60 (> 60)
--- NOTE | 2017-11-26 07:21 | Internal Med Progress Note ---
Date of Encounter: 11/26/17 Time of Encounter: 07:20 - Assessment and plan (1) S/P CABG x 2 Current Visit: Yes Status: Acute Assessment and plan: Underwent CABG X2 with left internal mammary artery to the LAD and aorta to the posterior descending branch of the right coronary artery with saphenous vein. Post op day #2 Cardiothoracic surgery managing, patient now in ICU. Patient is currently stable. Amiodarone drip has been weaned off and patient is on po amiodarone. Disposition planning per cardiothoracic surgery. Per cardiothoracic surgery, hospitalist service can sign off (2) Leukocytosis Current Visit: Yes Status: Acute Assessment and plan: New onset. Pt is afebrile. Obtain pancltures, cxr. Monitor CBC. Will initiate abx if pt shws any clinical signs of infection Qualifiers: Leukocytosis type: unspecified Qualified Code(s): D72.829 - Elevated white blood cell count, unspecified (3) Diabetes Current Visit: Yes Status: Chronic Assessment and plan: continue insulin. 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 Qualifiers: Hypertension type: essential hypertension Qualified Code(s): I10 - Essential (primary) hypertension (5) Chest pain, rule out acute myocardial infarction Current Visit: Yes Status: Acute Assessment and plan: Presented to [facility] with chest pain and anginal equivalent. This is recurrent, due to recurrent episodes [facility] performed and found severe triple-vessel CAD. Underwent a CABG. Post op day #2 (6) Hypokalemia Current Visit: Yes Status: Acute Assessment and plan: Resolved (7) DVT prophylaxis Current Visit: Yes Status: Acute Assessment and plan: On heparin sc (8) CAD (coronary artery disease), [place] coronary artery Current Visit: Yes Status: Acute Assessment and plan: Severe three-vessel CAD, underwent CABG yesterday Resume cardiac medications per cardiothoracic surgery Qualifiers: [place] vs. transplanted heart: [place] heart Associated angina: with unstable angina Qualified Code(s): I25.110 - Atherosclerotic heart disease of [place] coronary artery with unstable angina pectoris - Time Spent With Patient Total time spent is greater than 50% in coordination of care (as documented) at patient's floor/unit and/or counseling patient: - Subjective Interval history: s/p CABG. No acute events overnight - Constitutional Vitals: Temp Pulse Resp BP Pulse Ox 98.3 F 80 30 134/67 90 11/26/17 04:54 11/26/17 06:00 11/26/17 06:00 11/26/17 06:00 11/26/17 06:00 General appearance: Present: A&O X 1 - Head Head exam: Present: atraumatic, normocephalic - Eye Eye exam: Present: PERRL, conjuntiva pink, sclera anicteric Pupils: Present: PERRL - Neck Neck exam general surgery: Present: supple, trachea midline. Absent: lymphadenopathy - Respiratory Respiratory exam: Present: CTAB. Absent: accessory muscle use, rales, rhonchi, wheezes - Cardiovascular Cardiovascular exam: Present: RRR, +S1, +S2. Absent: diastolic murmur, gallop, rubs, systolic murmur - GI/Abdominal GI/Abdominal exam: Present: normal bowel sounds, soft, no peritoneal signs. Absent: distended, tenderness - Extremities Exam Extremities exam: Present: warm, radial pulses palpable and symmetrical. Absent : calf tenderness, cyanotic, pedal edema - Neurological Exam Neurological exam: Present: CN II-XII intact, oriented X3, no focal deficits. Absent: pronater drift, facial droop, speech deficit - Skin Skin exam: Present: dry, intact Internal Medicine: Result - Labs CBC & Chem 7: 11/26/17 04:20 11/26/17 04:20 Labs: Short CBC 11/26/17 Range/Units 04:20 WBC 15.1 H (4.3-11.1) K/mcL Hgb 10.1 L (12.9-16.9) g/dL Hct 31.9 L (37.5-50.1) % Plt Count 151 (140-400) K/mcL Neutrophils # 13.0 H (1.6-8.9) K/mcL BMP 11/26/17 04:20 Sodium 130 L Potassium 4.2 Chloride 98 Carbon Dioxide 25 BUN 20 Creatinine 0.85 Glucose 152 H Calcium 8.4 L - ABG Interpretation ABG results: ABG ABG pH 7.37 pH Units (7.32-7.45) 11/24/17 17:52 ABG pCO2 42 mmHg (35-45) 11/24/17 17:52 ABG pO2 79 mmHg (85-104) L 11/24/17 17:52 ABG O2 Saturation 95 % (95-98) 11/24/17 17:52 PT/INR, D-dimer PT 13.3 Seconds (9.4-12.1) H 11/25/17 03:08 - VTE Reasons for not Prescribing Prophylaxis: Medical contraindication Documentation of Mechanical Device: Graduated compression elastic hosiery Consult Discharge Plan - Plan Referrals: Brandan Lindsay DO [Primary Care Provider] -
--- NOTE | 2017-11-26 09:11 | Cardiothoracic Progress Note ---
Date of Encounter: 11/26/17 Time of Encounter: 09:08 - Assessment and plan (1) CAD (coronary artery disease), [place] coronary artery Current Visit: Yes Status: Acute I removed the chest tubes. We will check a stat portable chest x-ray. We will discontinue the Ledez[place] catheter. We will transfer the patient to the floor. Qualifiers: [place] vs. transplanted heart: [place] heart Associated angina: with unstable angina Qualified Code(s): I25.110 - Atherosclerotic heart disease of [place] coronary artery with unstable angina pectoris (2) Postoperative pain Current Visit: Yes Status: Acute The assessment and plan as outlined above was discussed with the patient and/or family members who expressed understanding and agreement. All questions were answered. - Subjective Interval history: The patient is tolerating his diet. He complains of mild postoperative pain. Vital Signs, Last 4 Hours Temp Pulse Resp BP Pulse Ox 11/26/17 07:42 14 91 11/26/17 07:39 98.6 F 11/26/17 06:00 80 30 134/67 90 Oxgyen Flow Rate Oxygen Flow Rate (LPM) 3 Clinical Data, last 8 Hours Output, Chest Tube Drainage 6 Amount [Mediastinal #3] Output, Chest Tube Drainage 50 Amount [Mediastinal #1] Weight 11/24/17 11/25/17 11/26/17 23:59 23:59 23:59 Weight 94.1 kg 101.2 kg Lungs are clear to percussion and auscultation. Heart is in a normal sinus rhythm. All incisions are healing well without signs of infection and the sternum is stable. The chest tubes had minimal drainage and there is no air leak. - Labs 11/26/17 04:20 11/26/17 04:20 Lab Results, Last 24 hours 11/26/17 11/26/17 04:20 04:20 WBC 15.1 H Hgb 10.1 L Hct 31.9 L Plt Count 151 Sodium 130 L Potassium 4.2 Chloride 98 Carbon Dioxide 25 BUN 20 Creatinine 0.85 Glucose 152 H Calcium 8.4 L - VTE Reasons for not Prescribing Prophylaxis: Medical contraindication Documentation of Mechanical Device: Graduated compression elastic hosiery Consult Discharge Plan - Plan Referrals: Brandan Lindsay DO [Primary Care Provider] -
[2017-11-26] MEDS: Chlorhexidine Rinse 15 ML MOUTHWASH MM SCH ×2 (09:17→20:42)
[2017-11-26] MEDS: Insulin LISPRO 300 UNITS/3 ML VIAL SQ SCH ×4 (09:26→20:42)
[2017-11-26] MEDS: *HR* Amiodarone 200 MG TABLET PO SCH ×2 (09:28→20:41)
[2017-11-26] MEDS: Lisinopril-HCTZ 20-12.5mg TABLET PO SCH (09:28)
[2017-11-26] MEDS: *HR* OxyCODONE/APAP 5/325 TABLET PO PRN ×2 (09:28→17:11)
[2017-11-26] MEDS ORDERED: D5% in Water 1,000 ML IVC PRN (09:35)
[2017-11-26] MEDS ORDERED: Dextrose Gel 15 GM/37.5 ML TUBE PO PRN ×2 (09:35)
[2017-11-26] MEDS ORDERED: *HR* Promethazine 25 MG/ML VIAL IVP PRN (09:35)
[2017-11-26] MEDS ORDERED: Ondansetron 4 MG/2 ML VIAL IVP PRN (09:35)
[2017-11-26] MEDS ORDERED: Naloxone 0.4 MG/ML INJ IVP PRN (09:35)
[2017-11-26] MEDS ORDERED: Acetaminophen 325 MG TABLET PO PRN (09:35)
[2017-11-26] MEDS ORDERED: *HR* Dextrose 50 % in Water (Syg) 50 ML SYRINGE IVP PRN (09:35)
[2017-11-26] MEDS ORDERED: *HR* FentaNYL (PF) 100 MCG/2 ML VIAL IVP PRN (09:35)
[2017-11-26] MEDS ORDERED: Nitroglycerin 0.4 MG TAB.SUBL SL PRN (09:35)
[2017-11-26] MEDS: Nitroglycerin 25 MG/250 ML INFUS..BTL IVC SCH (09:39)
[2017-11-26] MEDS ORDERED: Aspirin 81 MG TAB.CHEW ONE (09:45)
[2017-11-26] MEDS: Aspirin 81 MG TAB.CHEW PO SCH (12:20)
[2017-11-26] MEDS: *HR* Heparin 5,000 UNIT/ML VIAL SQ SCH (17:14)
[2017-11-26] MEDS ORDERED: *HR* Heparin 5,000 UNIT/ML VIAL SQ SCH (18:00)
[2017-11-27 03:34] LABS: Basophils % 0.2 %; Eosinophils % 0.1 %; Hematocrit 30.1 % (37.5-50.1); Hemoglobin 9.7 g/dL (12.9-16.9); Lymphocytes # 0.5 K/mcL (0.6-4.6); Lymphocytes % 4.4 %; Mean Corpuscular HGB Conc 32.2 g/dL (31.6-35.5); Mean Corpuscular Hemoglobin 29.7 pg (28.0-33.3); Mean Platelet Volume 10.8 fL (9.4-12.4); Monocytes % 8.1 %; Neutrophils # 10.1 K/mcL (1.6-8.9); Platelet Count 172 K/mcL (140-400); Red Blood Count 3.27 M/mcL (4.19-5.50); Red Cell Distribution Width 14.2 % (11.5-14.5); Segmented Neutrophils % 86.2 %
[2017-11-27 03:51] LABS: BUN/Creatinine Ratio 29 (6-26); Blood Urea Nitrogen 22 mg/dL (8-23); Calcium 8.4 mg/dL (8.6-10.3); Carbon Dioxide 26 mEq/L (23-29); Chloride 95 mEq/L (98-107); Glucose 141 mg/dL (70-105); Osmolality,Calculated 272 (280-300); Potassium 4.1 mEq/L (3.5-5.1); Sodium 128 mEq/L (136-145); eGFR For African Americans > 60 (> 60); eGFR For Non-African Americans > 60 (> 60)
[2017-11-27] MEDS: *HR* OxyCODONE/APAP 5/325 TABLET PO PRN (05:27)
[2017-11-27] MEDS: *HR* Heparin 5,000 UNIT/ML VIAL SQ SCH ×2 (05:28→17:25)
[2017-11-27] MEDS: *HR* Amiodarone 200 MG TABLET PO SCH ×2 (05:28→20:13)
--- NOTE | 2017-11-27 07:51 | Cardiothoracic Progress Note ---
Date of Encounter: 11/27/17 Time of Encounter: 07:48 - Assessment and plan (1) CAD (coronary artery disease), [place] coronary artery Current Visit: Yes Status: Acute I will increase the patient's Lopressor dosage. I will discontinue the hydrochlorothiazide and add Lasix. Qualifiers: [place] vs. transplanted heart: [place] heart Associated angina: with unstable angina Qualified Code(s): I25.110 - Atherosclerotic heart disease of [place] coronary artery with unstable angina pectoris (2) Postoperative pain Current Visit: Yes Status: Acute The assessment and plan as outlined above was discussed with the patient and/or family members who expressed understanding and agreement. All questions were answered. - Subjective Interval history: The patient is mildly confused this morning. He is oriented to person, place and time. He was on Aricept preoperatively. Vital Signs, Last 4 Hours Temp Pulse Resp BP Pulse Ox 11/27/17 07:20 98.2 F 120 22 117/75 94 11/27/17 05:32 133/86 11/27/17 04:03 22 94 Oxgyen Flow Rate Oxygen Flow Rate (LPM) 2 Weight 11/25/17 11/26/17 11/27/17 23:59 23:59 23:59 Weight 101.2 kg 96.7 kg Lungs are clear to percussion and auscultation. Heart is in a normal sinus rhythm. All incisions are healing well without signs of infection and the sternum is stable. - Labs 11/27/17 03:20 11/27/17 03:20 Lab Results, Last 24 hours 11/27/17 11/27/17 03:20 03:20 WBC 11.7 H Hgb 9.7 L Hct 30.1 L Plt Count 172 Sodium 128 L Potassium 4.1 Chloride 95 L Carbon Dioxide 26 BUN 22 Creatinine 0.77 Glucose 141 H Calcium 8.4 L - VTE Reasons for not Prescribing Prophylaxis: Medical contraindication Documentation of Mechanical Device: Graduated compression elastic hosiery Consult Discharge Plan - Plan Referrals: Poli Storey MD [Partnered Physician] - Brandan Lindsay DO [Primary Care Provider] - Prema Best [Partnered Physician] - (SENT WEB REQUEST ON 11-28-17 @ [phone])
[2017-11-27] MEDS ORDERED: Ketorolac 30 MG/ML VIAL IVP PRN (08:06)
[2017-11-27] MEDS: Chlorhexidine Rinse 15 ML MOUTHWASH MM SCH ×2 (08:46→20:14)
[2017-11-27] MEDS: Aspirin 81 MG TAB.CHEW PO SCH (08:46)
[2017-11-27] MEDS: Lisinopril 20 MG TABLET PO SCH (08:47)
[2017-11-27] MEDS: Insulin LISPRO 300 UNITS/3 ML VIAL SQ SCH ×4 (08:47→20:58)
[2017-11-27] MEDS: Furosemide 20 MG/2 ML VIAL IVP SCH ×2 (08:49→17:25)
[2017-11-27] MEDS ORDERED: Lisinopril-HCTZ 20-12.5mg TABLET PO SCH (09:00)
[2017-11-27] MEDS: Acetaminophen IV 1,000 MG/100 ML INFUS..BTL IVPB SCH ×2 (12:06→17:25)
[2017-11-27] MEDS ORDERED: Magnesium Sulfate 4 GM in D5% in Water 100 ML IVPB ONE (22:39)
[2017-11-27] MEDS ORDERED: *HR* Amiodarone 200 MG TABLET PO ONE (22:42)
[2017-11-28] MEDS: Acetaminophen IV 1,000 MG/100 ML INFUS..BTL IVPB SCH ×5 (00:57→23:54)
[2017-11-28] MEDS: *HR* Heparin 5,000 UNIT/ML VIAL SQ SCH (05:58)
[2017-11-28 06:40] LABS: Basophils % 0.2 %; Eosinophils # 0.1 K/mcL (0.0-0.6); Eosinophils % 2.3 %; Hematocrit 29.5 % (37.5-50.1); Hemoglobin 9.7 g/dL (12.9-16.9); Immature Granulocytes % 1.6 % (0-4); Lymphocytes # 0.6 K/mcL (0.6-4.6); Lymphocytes % 12.9 %; Mean Corpuscular HGB Conc 32.9 g/dL (31.6-35.5); Mean Corpuscular Hemoglobin 29.7 pg (28.0-33.3); Mean Corpuscular Volume 90.2 fL (83.0-100.0); Mean Platelet Volume 10.7 fL (9.4-12.4); Monocytes # 0.5 K/mcL (0.0-1.3); Monocytes % 10.2 %; Neutrophils # 3.2 K/mcL (1.6-8.9); Platelet Count 202 K/mcL (140-400); Red Blood Count 3.27 M/mcL (4.19-5.50); Red Cell Distribution Width 13.9 % (11.5-14.5); Segmented Neutrophils % 72.8 %
[2017-11-28 06:57] LABS: BUN/Creatinine Ratio 24 (6-26); Blood Urea Nitrogen 18 mg/dL (8-23); Calcium 8.2 mg/dL (8.6-10.3); Carbon Dioxide 29 mEq/L (23-29); Chloride 92 mEq/L (98-107); Glucose 115 mg/dL (70-105); Osmolality,Calculated 265 (280-300); Potassium 4.1 mEq/L (3.5-5.1); Sodium 126 mEq/L (136-145); eGFR For African Americans > 60 (> 60); eGFR For Non-African Americans > 60 (> 60)
[2017-11-28] MEDS: Insulin LISPRO 300 UNITS/3 ML VIAL SQ SCH ×4 (08:17→20:23)
[2017-11-28] MEDS: Chlorhexidine Rinse 15 ML MOUTHWASH MM SCH ×2 (08:38→20:11)
[2017-11-28] MEDS: Furosemide 20 MG/2 ML VIAL IVP SCH ×2 (08:39→18:13)
[2017-11-28] MEDS: Aspirin 81 MG TAB.CHEW PO SCH (08:39)
[2017-11-28] MEDS: Lisinopril 20 MG TABLET PO SCH (08:39)
--- NOTE | 2017-11-28 10:57 | Cardiothoracic Progress Note ---
Date of Encounter: 11/28/17 Time of Encounter: 10:49 - Subjective Procedure(s) Performed: Patient seen and examined. In summary Mr. James Sandhu is a 77-year-old white male with progressive dementia who is POD # 4 from a CABG 2, with the left internal mammary artery to the LAD and the aorta to the posterior descending branch of the right coronary artery with saphenous vein with a modified [place] and left atrial appendage stapling. He has been in and out of atrial fibrillation since his surgery. He is currently on amiodarone as well as a beta saad. Last night he was having brief episodes of rapid ventricular response and I gave an additional dose of amiodarone as well as 4 g of IV Mg. He is on subcutaneous heparin for DVT prophylaxis. Currently is not anticoagulated. Last night apparently the patient became agitated and removed his IJ as well as removed his sternal dressing. He currently is without complaint and his noncombative and friendly. He clearly is confused regarding his general orientation which appears to be similar to baseline per nursing. He does not have any complaints of pain or discomfort and his pain is currently well controlled with IV acetaminophen and IV Toradol. Shortly after examining the patient that he had a fall when he got up on his own this morning. He appeared to have not injured himself and is currently back in his chair with no complaints. We discussed the plan for Therapeutic Lovenox given his recurrent atrial fibrillation and risk for CVA. Additionally , I will repeat his magnesium supplement it accordingly. We will continue his amiodarone and beta saad. I requested a sitter for the patient to monitor him so that he does not subjects himself to another fall. We will plan on discussing with the family issues of home health versus ECF for his postoperative unless. Vital Signs, Last 4 Hours Temp Pulse Resp BP Pulse Ox 11/28/17 08:20 80 95 11/28/17 08:13 16 96 11/28/17 07:21 97.9 F 80 22 151/79 98 Oxgyen Flow Rate Oxygen Flow Rate (LPM) 2 Clinical Data, last 8 Hours Output, Urine Amount 200 Output, Urine Amount 600 Output, Urine Amount 200 Output, Urine Amount 200 Output, Urine Amount 500 Weight 11/26/17 11/27/17 11/28/17 23:59 23:59 23:59 Weight 101.2 kg 96.7 kg - Physical Examination General: Other (Sitting in chair, friendly and cooperative, in no acute distress , denies pain) Incision: Other (Dressing intact) Sternum: Stable Pacing Wires: In place Neuro: Other (The patient has no evidence of gross motor or sensory deficits but does have baseline dementia, he is noncombative but is confused enough that he does not follow instructions and has already gotten up on his own and had a fall.) - Labs 11/28/17 06:16 11/28/17 06:16 Lab Results, Last 24 hours 11/28/17 11/28/17 06:16 06:16 WBC 4.4 D Hgb 9.7 L Hct 29.5 L Plt Count 202 Sodium 126 L Potassium 4.1 Chloride 92 L Carbon Dioxide 29 BUN 18 Creatinine 0.74 Glucose 115 H Calcium 8.2 L - VTE Reasons for not Prescribing Prophylaxis: Medical contraindication Documentation of Mechanical Device: Graduated compression elastic hosiery Consult Discharge Plan - Plan Referrals: Benoit Martinez [Partnered Physician] - 12/04/17 1:45 pm (Dr. Lindsay had no openings, put patient in with Dr. Martinez) Poli Storey MD [Partnered Physician] - 12/24/17 1:15 pm Prema Best [Partnered Physician] - (SENT WEB REQUEST ON 11-27-17 @ [phone])
[2017-11-28 11:01] LABS: Magnesium 2.3 mg/dL (1.6-2.6)
[2017-11-28] MEDS: *HR* Enoxaparin 100 MG/ML SYRINGE SQ SCH ×2 (11:36→18:13)
[2017-11-28] MEDS: *HR* Amiodarone 200 MG TABLET PO SCH ×2 (11:36→20:11)
[2017-11-29] MEDS: Acetaminophen IV 1,000 MG/100 ML INFUS..BTL IVPB SCH ×4 (05:14→23:17)
[2017-11-29] MEDS: *HR* Enoxaparin 100 MG/ML SYRINGE SQ SCH ×2 (05:17→16:50)
[2017-11-29] MEDS: Insulin LISPRO 300 UNITS/3 ML VIAL SQ SCH ×4 (07:15→19:39)
[2017-11-29] MEDS: Chlorhexidine Rinse 15 ML MOUTHWASH MM SCH ×2 (07:29→19:39)
[2017-11-29] MEDS: Furosemide 20 MG/2 ML VIAL IVP SCH ×2 (07:29→16:48)
[2017-11-29] MEDS: Aspirin 81 MG TAB.CHEW PO SCH (07:30)
[2017-11-29] MEDS: *HR* Amiodarone 200 MG TABLET PO SCH ×2 (07:30→19:38)
[2017-11-29] MEDS: Lisinopril 20 MG TABLET PO SCH (07:31)
--- NOTE | 2017-11-29 11:14 | Cardiothoracic Progress Note ---
Date of Encounter: 11/29/17 Time of Encounter: 10:59 - Subjective Procedure(s) Performed: Patient seen and examined. In summary Mr. James Sandhu is a 77-year-old white male with progressive dementia who is POD # 5 from a CABG 2, with the left internal mammary artery to the LAD and the aorta to the posterior descending branch of the right coronary artery with saphenous vein with a modified Linda-Maze and left atrial appendage stapling. He has been in and out of atrial fibrillation since his surgery. He continues on his amiodarone and beta saad. Additionally he was started on therapeutic Lovenox yesterday. He alos had a fall yesterday morning and a sitter has been assigned to him since that time. Since his last exam yesterday he has had increased agitation. His family is currently at the bedside. He apparently was walking in the mera and could not be restrained per nursing. He currently is in bed. Family states that they recognize he is more agitated. He states he does not feel well mentally and appears to be aware of his agitated state. A Psychiatry consult was requested this am but patient has not yet been seen. The patient is currently in SR and has been predominantly in SR since yesterday. His vital signs are stable and he has no other issues. His electrolytes are improved with respect to his serum K+ and Mg++. Today I discussed with the family the importance of them being present when possible to reduce the patient's agitation. Discussed plans for ECF placement and they are in agreement with this recommendation. Will d/c Elavil per family member's request which apparently was started post-op and the patient was not receiving before. Appaently patient was on Trazadone at night before. Will await Psych Consult. Family understands and agrees with plan. Vital Signs, Last 4 Hours Pulse Resp Pulse Ox 11/29/17 08:07 18 94 11/29/17 07:39 92 Oxgyen Flow Rate Oxygen Flow Rate (LPM) 2 Clinical Data, last 8 Hours Output, Urine Amount 650 Output, Urine Amount 200 Output, Urine Amount 350 Output, Urine Amount 200 Output, Urine Amount 100 Output, Urine Amount 100 Weight 11/27/17 11/28/17 11/29/17 23:59 23:59 23:59 Weight 96.7 kg - Physical Examination General: Other (Patient lying in bed and in NAD. Somewhat anxious but cooperative.) - Labs 11/28/17 06:16 11/28/17 06:16 Lab Results, Last 24 hours 11/28/17 06:16 Magnesium 2.3 - VTE Reasons for not Prescribing Prophylaxis: Medical contraindication Documentation of Mechanical Device: Graduated compression elastic hosiery Consult Discharge Plan - Plan Referrals: Benoit Martinez [Partnered Physician] - 12/04/17 1:45 pm (Dr. Lindsay had no openings, put patient in with Dr. Martinez) Poli Storey MD [Partnered Physician] - 12/24/17 1:15 pm Prema Best [Partnered Physician] - (SENT WEB REQUEST ON 11-27-17 @ [phone])
--- NOTE | 2017-11-29 13:26 | Consult Note ---
Date of Encounter: 11/29/17 Time of Encounter: 13:20 Assessment & Recommendation (1) Delirium Current visit: Yes Status: Acute (2) Dementia Current visit: Yes Status: Acute Qualifiers: Dementia type: unspecified type Dementia behavioral disturbance: with behavioral disturbance Qualified Code(s): F03.91 - Unspecified dementia with behavioral disturbance History of Present Illness Requesting Physician: Kellee Harper MD Reason for consult: Dementia, confusion after OR. Medication recommendation History of present illness: Mr. Sandhu is a 77 year old white male with a h/o progressive dementia, no prior psych contact, who is POD # 5 from a CABG 2. Patient has had increased agiation since yesterday. Psychiatry consulted for medication recommendation for agitation. Patient seen at bedside this afternoon in the presence of his family. He was sitting in his chair in no apparent distress. He was alert and oriented to x3 but not to place and situation. He is unable to recall how and why he is in the hospital. Most of the h/o was taken from the who stated patient was diagnosed with dementia a couple of years back. She denied prior h/o visual hallucinations or agitation. Patient reported VH started months ago. He described seeing visions and moving objects on the rankin. On review of symptoms , he denied any depressive/anxiety/mood and other psychotic symptoms including AH/HI/SI/. Patient is neither delusional nor paranoid. MSE: Significant for impaired cognition and visual hallucinations Diagnosis: Acute Delirium s/p surgery Neurocogntive disrder unspecified type with behavioral disturbances Recommendations: Hold off benzodiazepines due to risk of worsening delirium Start Seroquel 12.5mg p.o BID prn for severe agitation. Contact Psychiatry for any additional questions. Thanks for the consult. CC: Kellee Harper MD Past Med Surg Social Fam HX - Past Medical History Medical history: coronary artery disease, hyperlipidemia, hypertension, renal disease - Past Psychiatric History Psychiatric history: Reports: no psych history - Past Surgical History Surgical History: orthopedic, other (Right total knee replacement) - Social History Smoking Status: Never smoker Smokeless Tobacco Status: No Alcohol use: none Drug use: none - Family History Father Hx Family Cardiac Disorders: Yes (Stroke) Sister Hx Family Cardiac Disorders: Yes (Stroke) Hx Family Cancer: Yes (Leukemia) Medications & Allergies Amitriptyline [Elavil] 25 mg PO QPM 03/28/15 [History] Indomethacin [Indocin] 50 mg PO BID PRN 03/28/15 [History] Lisinopril/Hydrochlorothiazide [Zestoretic 20-12.5 mg Tablet] 1 each PO QAM [History] Ferrous Sulfate 325 mg PO BIDWM #60 tablet 07/04/15 [Rx] Allopurinol [Zyloprim 100 MG] 100 mg PO DAILY 11/23/17 [History] Donepezil [Aricept] 5 mg PO DAILY 11/23/17 [History] Fluticasone Propionate Nasal [Flonase] 1 spr NS DAILY 11/23/17 [History] Metoprolol [Lopressor] 100 mg PO QAM 11/23/17 [History] Metoprolol [Lopressor] 200 mg PO QPM 11/23/17 [History] Omeprazole [PriLOSEC] 40 mg PO DAILY 11/23/17 [History] traZODone [TraZODone] 50 - 100 mg PO HS 11/23/17 [History] 3 Allergy/AdvReac Type Severity Reaction Status Date / Time allantoin Allergy Unknown UNKNOWN Verified 11/23/17 11:22 atorvastatin [From Lipitor] Allergy Unknown UNKNOWN Verified 11/23/17 11:22 Sulfa (Sulfonamide Allergy Unknown UNKNOWN Verified 11/23/17 11:22 Antibiotics) Review of Systems Constitutional: Denies: fever, chills, weakness, weight change Eyes: Denies: eye pain, vision change Ears, Nose, Throat: Denies: ear pain, throat pain, dental pain, hearing loss, congestion Cardiovascular: Denies: chest pain, palpitations, dyspnea on exertion Respiratory: Denies: cough, dyspnea, wheezes Gastrointestinal: Denies: abdominal pain, nausea, vomiting, diarrhea, constipation Genitourinary male: Denies: urgency, dysuria, frequency, genital lesions Musculoskeletal: Denies: joint swelling, joint pain Integumentary: Denies: rash, lesions, pruritus Neurological: Reports: confusion. Denies: headache, weakness, numbness, memory loss Psychiatric: Reports: visual hallucinations Psychiatry Exam - Constitutional Vitals: Temp Pulse Resp BP Pulse Ox 98.5 F 79 18 150/79 94 11/29/17 10:55 11/29/17 10:55 11/29/17 11:04 11/29/17 10:55 11/29/17 11:04 General appearance: age & developmentally appropriate - Musculoskeletal Gait: normal - Psychiatric Patient Orientation: Yes Person, Yes Time Level of alertness: Alert Behavior: calm, cooperative Psychomotor activity: Normal Eye Contact: Maintains Eye Contact Mood Description: Euthymic/stable Affect description: congruent with mood Speech Volume: Normal Speech pattern: normal rate, normal rhythm, normal tone Language & Vocabulary: consistent with education Thought Process: Logical, Goal Oriented Thought Content: Yes Intact Perceptual Disturbances: Yes Visual hallucinations Attention Span Ability: Capable of Focused Attention Memory Description: Grossly Intact Patient Reliability: Reliable Historian Fund of knowledge: Yes average Intelligence Estimate: Average Judgment: Limited Insight: Minimal Results - Labs Labs: Laboratory Last Values WBC 4.4 K/mcL (4.3-11.1) D 11/28/17 06:16 RBC 3.27 M/mcL (4.19-5.50) L 11/28/17 06:16 Hgb 9.7 g/dL (12.9-16.9) L 11/28/17 06:16 Hct 29.5 % (37.5-50.1) L 11/28/17 06:16 MCV 90.2 fL (83.0-100.0) 11/28/17 06:16 MCH 29.7 pg (28.0-33.3) 11/28/17 06:16 MCHC 32.9 g/dL (31.6-35.5) 11/28/17 06:16 RDW 13.9 % (11.5-14.5) 11/28/17 06:16 Plt Count 202 K/mcL (140-400) 11/28/17 06:16 MPV 10.7 fL (9.4-12.4) 11/28/17 06:16 Immature Gran % 1.6 % (0-4) 11/28/17 06:16 Seg Neutrophils % 72.8 % 11/28/17 06:16 Lymphocytes % 12.9 % 11/28/17 06:16 Monocytes % 10.2 % 11/28/17 06:16 Eosinophils % 2.3 % 11/28/17 06:16 Basophils % 0.2 % 11/28/17 06:16 Neutrophils # 3.2 K/mcL (1.6-8.9) 11/28/17 06:16 Lymphocytes # 0.6 K/mcL (0.6-4.6) 11/28/17 06:16 Monocytes # 0.5 K/mcL (0.0-1.3) 11/28/17 06:16 Eosinophils # 0.1 K/mcL (0.0-0.6) 11/28/17 06:16 Basophils # 0.0 K/mcL (0.0-0.2) 11/28/17 06:16 Nucleated RBCs/100 WBC 0.7 /100 WBC (0) H 11/23/17 00:49 PT 13.3 Seconds (9.4-12.1) H 11/25/17 03:08 INR 1.2 11/25/17 03:08 APTT 25.6 Seconds (26.0-36.0) L 11/25/17 03:08 Sample Site Art Line 11/24/17 17:52 ABG pH 7.37 pH Units (7.32-7.45) 11/24/17 17:52 ABG pCO2 42 mmHg (35-45) 11/24/17 17:52 ABG pO2 79 mmHg (85-104) L 11/24/17 17:52 ABG HCO3 25 mEq/L (21-27) 11/24/17 17:52 ABG Total CO2 26 mEq/L (20-26) 11/24/17 17:52 ABG O2 Saturation 95 % (95-98) 11/24/17 17:52 ABG Base Excess -1 mEq/L (-2 to 3) 11/24/17 17:52 ABG Hematocrit 28.0 % (37.5-50.1) L 11/24/17 10:57 Duc Test N/A 11/24/17 17:52 ABG Chloride 105 mEq/L (98-107) 11/24/17 10:57 Sodium 143 mEq/L (135-148) 11/24/17 10:57 Potassium 3.5 mEq/L (3.5-5.3) 11/24/17 10:57 Glucose 65 mg/dL (60-95) 11/24/17 10:57 Respiration Rate 10 11/24/17 15:21 O2 Delivery Device Cannula 11/24/17 17:52 Blood Gas Modality ASSIST CONTROL 11/24/17 15:21 Inspired O2 32.0 (1-15=lpm [id number]=%) 11/24/17 17:52 Tidal Volume 700 cc 11/24/17 15:21 PEEP 5 cm H2O 11/24/17 15:21 Sodium 126 mEq/L (136-145) L 11/28/17 06:16 Potassium 4.1 mEq/L (3.5-5.1) 11/28/17 06:16 Chloride 92 mEq/L (98-107) L 11/28/17 06:16 Carbon Dioxide 29 mEq/L (23-29) 11/28/17 06:16 BUN 18 mg/dL (8-23) 11/28/17 06:16 Creatinine 0.74 mg/dL (0.70-1.30) 11/28/17 06:16 Est GFR ( Amer) > 60 (> 60) 11/28/17 06:16 Est GFR (Non-Af Amer) > 60 (> 60) 11/28/17 06:16 BUN/Creatinine Ratio 24 (6-26) 11/28/17 06:16 Glucose 115 mg/dL (70-105) H 11/28/17 06:16 POC Glucose 142 mg/dL (70-99) H 11/28/17 11:08 Est Mean Plasma Glucose 114 mg/dl 11/23/17 16:28 Hemoglobin A1c 5.6 % (-5.6) 11/23/17 16:28 Calculated Osmolality 265 (280-300) L 11/28/17 06:16 Calcium 8.2 mg/dL (8.6-10.3) L 11/28/17 06:16 Magnesium 2.3 mg/dL (1.6-2.6) 11/28/17 06:16 Troponin I < 0.03 ng/mL (< 0.04) 11/23/17 06:28 Triglycerides 148 mg/dL (< 150) 11/23/17 16:28 Cholesterol 155 mg/dL (< 200) 11/23/17 16:28 LDL Cholesterol, Calc 91 mg/dL (0-99) 11/23/17 16:28 VLDL Cholesterol, Calc 30 mg/dL (< 31) 11/23/17 16:28 HDL Cholesterol 34 mg/dL (40-59) L 11/23/17 16:28 Cholesterol/HDL Ratio 4.6 (0-4.9) 11/23/17 16:28 Arterial Blood Ionized Calcium 1.24 mmol/L (1.15-1.35) 11/24/17 10:57 Nasal Screen MRSA (PCR) Negative (Negative) 11/23/17 22:36 Blood Type O NEGATIVE 11/23/17 16:28 Antibody Screen NEGATIVE 11/23/17 16:28 Crossmatch See Detail 11/23/17 16:28 Consult Discharge Plan - Plan Referrals: Benoit Martinez [Partnered Physician] - 12/04/17 1:45 pm (Dr. Lindsay had no openings, put patient in with Dr. Martinez) Poli Storey MD [Partnered Physician] - 12/24/17 1:15 pm Prema Best [Partnered Physician] - (SENT WEB REQUEST ON 11-27-17 @ [phone])
[2017-11-30] MEDS ORDERED: *HR* Amiodarone 200 MG TABLET PO ONE (00:54)
[2017-11-30 01:14] LABS: Basophils % 0.4 %; Eosinophils # 0.2 K/mcL (0.0-0.6); Hematocrit 29.7 % (37.5-50.1); Hemoglobin 9.9 g/dL (12.9-16.9); Immature Granulocytes % 4.5 % (0-4); Lymphocytes # 0.7 K/mcL (0.6-4.6); Lymphocytes % 8.5 %; Mean Corpuscular HGB Conc 33.3 g/dL (31.6-35.5); Mean Corpuscular Hemoglobin 30.6 pg (28.0-33.3); Mean Corpuscular Volume 91.7 fL (83.0-100.0); Mean Platelet Volume 10.6 fL (9.4-12.4); Monocytes # 0.7 K/mcL (0.0-1.3); Monocytes % 9.3 %; Neutrophils # 5.7 K/mcL (1.6-8.9); Platelet Count 253 K/mcL (140-400); Red Blood Count 3.24 M/mcL (4.19-5.50); Red Cell Distribution Width 13.8 % (11.5-14.5); Segmented Neutrophils % 75.3 %
[2017-11-30 01:34] LABS: BUN/Creatinine Ratio 19 (6-26); Blood Urea Nitrogen 17 mg/dL (8-23); Calcium 8.7 mg/dL (8.6-10.3); Carbon Dioxide 27 mEq/L (23-29); Chloride 95 mEq/L (98-107); Glucose 122 mg/dL (70-105); Osmolality,Calculated 275 (280-300); Potassium 4.2 mEq/L (3.5-5.1); Sodium 131 mEq/L (136-145); eGFR For African Americans > 60 (> 60); eGFR For Non-African Americans > 60 (> 60)
[2017-11-30] MEDS: *HR* Enoxaparin 100 MG/ML SYRINGE SQ SCH ×2 (05:50→17:24)
[2017-11-30 05:51] LABS: Magnesium 1.8 mg/dL (1.6-2.6)
[2017-11-30] MEDS: Acetaminophen IV 1,000 MG/100 ML INFUS..BTL IVPB SCH ×2 (05:51→11:54)
[2017-11-30] MEDS: Insulin LISPRO 300 UNITS/3 ML VIAL SQ SCH ×4 (07:17→21:09)
[2017-11-30] MEDS: Chlorhexidine Rinse 15 ML MOUTHWASH MM SCH ×2 (07:24→21:08)
[2017-11-30] MEDS: Furosemide 20 MG/2 ML VIAL IVP SCH (07:24)
[2017-11-30] MEDS: Lisinopril 20 MG TABLET PO SCH (07:24)
[2017-11-30] MEDS: *HR* Amiodarone 200 MG TABLET PO SCH ×2 (07:24→21:08)
[2017-11-30] MEDS: Aspirin 81 MG TAB.CHEW PO SCH (07:25)
--- NOTE | 2017-11-30 09:01 | Cardiothoracic Progress Note ---
Date of Encounter: 11/30/17 Time of Encounter: 08:59 - Assessment and plan (1) CAD (coronary artery disease), [place] coronary artery Current Visit: Yes Status: Acute The patient seems to be improving and his mental status is much better this morning. I appreciate psychiatry's input. We will plan to discharge the patient to an extended care facility later this week. Qualifiers: [place] vs. transplanted heart: [place] heart Associated angina: with unstable angina Qualified Code(s): I25.110 - Atherosclerotic heart disease of [place] coronary artery with unstable angina pectoris (2) Postoperative pain Current Visit: Yes Status: Acute The assessment and plan as outlined above was discussed with the patient and/or family members who expressed understanding and agreement. All questions were answered. - Subjective Interval history: The patient has had confusion and was seen by psychiatry. His confusion seems better this morning. Vital Signs, Last 4 Hours Temp Pulse Resp BP Pulse Ox 11/30/17 07:59 16 99 11/30/17 07:41 98 11/30/17 07:09 97.8 F 74 19 138/64 100 Oxgyen Flow Rate Oxygen Flow Rate (LPM) 2 Clinical Data, last 8 Hours Output, Urine Amount 100 Output, Urine Amount 100 Lungs are clear to percussion and auscultation. Heart is in a normal sinus rhythm. All incisions are healing well without signs of infection and the sternum is stable. Chest x-ray reveals atelectasis and a chronically elevated left hemidiaphragm. - Labs 11/30/17 00:56 11/30/17 00:56 Lab Results, Last 24 hours 11/30/17 11/30/17 00:56 00:56 WBC 7.6 D Hgb 9.9 L Hct 29.7 L Plt Count 253 Sodium 131 L Potassium 4.2 Chloride 95 L Carbon Dioxide 27 BUN 17 Creatinine 0.89 Glucose 122 H Calcium 8.7 Magnesium 1.8 - VTE Reasons for not Prescribing Prophylaxis: Medical contraindication Documentation of Mechanical Device: Graduated compression elastic hosiery Consult Discharge Plan - Plan Referrals: Benoit Martinez [Partnered Physician] - 12/04/17 1:45 pm (Dr. Lindsay had no openings, put patient in with Dr. Martinez) Poli Storey MD [Partnered Physician] - 12/24/17 1:15 pm Prema Best [Partnered Physician] - (SENT WEB REQUEST ON 11-27-17 @ [phone])
[2017-11-30] MEDS ORDERED: Isovue-370 500 ML INFUS..BTL IV ONE (09:15)
--- NOTE | 2017-11-30 11:40 | Neurology - Consult Note ---
Date of Encounter: 11/30/17 Time of Encounter: 11:35 Assessment and Plan (1) Delirium Current Visit: Yes Status: Acute Post-surgical delirium in an elderly patient who has history of cognitive impairment with chronic visual hallucination for at least more than one year duration. No prior history of alcoholism. patient has been taking aricept for cognitive impairment and with the chronic visual hallucinations and shuffling gait we are likely dealing with a patient with a type of neurodegenerative disorder, such as lewy body disease which can be aggravated by recent surgery, sleep deprivation and these patients may be extra sensitive to psychotrophic medications and sedatives. He has nonfocal neurological examination, his gait is shuffling but he has no rest tremors. CT of head showed no acute intracranial abnormality. I see no evidence of new neurological pathology involved. Treatment is largely supportive and symptomatic. Agree with avoiding psychotrophic medications. Needs quite environment for better rest and may benefit from judicious use of sedative at bed time but again unpredictable side effects may occur. Will defer to medical team/psychiatry in treating her agitation/hallucinations. Symptoms may be aggravated staying in unfamiliar environment. Please continue medical and supportive care Total time spent on the case is approximately 50 minutes. History of Present Illness Chief complaint: Confusion HPI: Mr. Sandhu is a 77 year old male with PMH significant for s/p two vessel CABG , gait difficulty, sensorineural hearing loss, gout, prostat cancer, increased bilirubin level, HTN anemia who developed post surgical confusion. Consulted requested by Dr. Poli Storey who did two vessel CABG on 11/24/2017. Reportedly patient underwent uneventful cardiac surgery and was initially managed at ICU after the surgery. After transfer out of the ICU the patient seemed to be doing well and then over the last 2 days he developed rather acute mental status changes characterized by agitation and confusion. He has not been able to sleep since the last two days. he was initially started elavil to help him sleeping. He was evaluated by psychiatrist for the agitation yesterday who recommended seroquel 12.5mg bid for severe agitation. He was thought to have post surgical delirium. patient recommend a CT of head, which returned no acute intracranial abnormality. Patient is still disoriented but knew the year but not the place and month. He is oriented to person and knew her daughter and grand daughters name. He is not in acute distress and able to tell me that he has been experiencing visual hallucinations over the last one year, almost on daily basis, mostly occurring in the evening hours. Daughter admits that he has cognitive impairment and has been taking aricept for that. He has never been evaluated by a neurologist. He has somewhat shuffling gait and has 'gait disorder' as one of his medical conditions. Past Med Surg Social Fam HX - Past Medical History Medical history: coronary artery disease, hyperlipidemia, hypertension, renal disease Psychiatric history: no psych history - Past Surgical History Surgical History: orthopedic, other (Right total knee replacement) - Social History Smoking Status: Never smoker Smokeless Tobacco Status: No Alcohol use: none Drug use: none - Family History Father Hx Family Cardiac Disorders: Yes (Stroke) Sister Hx Family Cardiac Disorders: Yes (Stroke) Hx Family Cancer: Yes (Leukemia) Medications and Allergies Amitriptyline [Elavil] 25 mg PO QPM 03/28/15 [History] Indomethacin [Indocin] 50 mg PO BID PRN 03/28/15 [History] Lisinopril/Hydrochlorothiazide [Zestoretic 20-12.5 mg Tablet] 1 each PO QAM [History] Ferrous Sulfate 325 mg PO BIDWM #60 tablet 07/04/15 [Rx] Allopurinol [Zyloprim 100 MG] 100 mg PO DAILY 11/23/17 [History] Donepezil [Aricept] 5 mg PO DAILY 11/23/17 [History] Fluticasone Propionate Nasal [Flonase] 1 spr NS DAILY 11/23/17 [History] Metoprolol [Lopressor] 100 mg PO QAM 11/23/17 [History] Metoprolol [Lopressor] 200 mg PO QPM 11/23/17 [History] Omeprazole [PriLOSEC] 40 mg PO DAILY 11/23/17 [History] traZODone [TraZODone] 50 - 100 mg PO HS 11/23/17 [History] 3 Allergy/AdvReac Type Severity Reaction Status Date / Time allantoin Allergy Unknown UNKNOWN Verified 11/23/17 11:22 atorvastatin [From Lipitor] Allergy Unknown UNKNOWN Verified 11/23/17 11:22 Sulfa (Sulfonamide Allergy Unknown UNKNOWN Verified 11/23/17 11:22 Antibiotics) All Systems: The remainder of the systems were reviewed and are negative Physical Examination - Vital Signs Vital Signs: Initial Vital Signs Temp Pulse Resp BP Pulse Ox 98.3 F 112 20 166/88 97 11/22/17 16:24 11/22/17 16:24 11/22/17 16:24 11/22/17 16:24 11/22/17 16:24 - Constitutional General appearance: comfortable - Neurologic Sensorimotor examination: other (Grossly intact) Detailed motor examination: grossly full strength in all extremities Motor examination - right side: 5/5: deltoids, biceps, triceps, wrist flexion, wrist extension, nurse ldr, hip flexors, tibialis Anterior, quadriceps, toe extension (EHL), plantarflexion Motor examination - left side: 5/5: deltoids, biceps, triceps, wrist flexion, wrist extension, hip flexors, nurse ldr, quadriceps, tibialis Anterior, toe extension (EHL), plantarflexion Detailed sensory examination: intact Posture: other (None noted. No cogwheeling rigidity) Reflex and gait examination: other (Shuffling gait noted. Needs assistance to walk) Reflexes: Biceps: 1+, Triceps: 1+, Brachioradialis: 1+, Patella: 1+, Achilles: 1 + Mental Status Examination: awake, alert, oriented to person (Recognizes her daughter and granddaughter), oriented to place (Does not know which hospital he is at now), oriented to time (Knew the year but not the month or season), follows commands appropriately, answers questions appropriately, no agnosia, no aphasia, no aproxia, opens eyes to voice, makes eye contact, follows simple commands, impaired cognition Cranial nerve examination: PERRL, EOMI, visual brady intact, corneal reflexes brisk symmetrically, sensory to face intact, mastication intact, no facial asymmetry is present, no dysarthria, hearing is intact symmetrically (bilateral hearing difficulty noted), soft palate elevates bilaterally upon phonation, gag reflex intact, flexes SCM and trapezius muscles symmetrically with full power, tongue protrudes midline, no atrophy or facial fasiculations present Cerebellar examination: dysarthria (No dysarthria) Results - Laboratory Findings CBC and BMP: 11/30/17 00:56 11/30/17 00:56 Abnormal lab findings: Abnormal lab results RBC 3.24 M/mcL (4.19-5.50) L 11/30/17 00:56 Hgb 9.9 g/dL (12.9-16.9) L 11/30/17 00:56 Hct 29.7 % (37.5-50.1) L 11/30/17 00:56 Immature Gran % 4.5 % (0-4) H 11/30/17 00:56 Nucleated RBCs/100 WBC 0.7 /100 WBC (0) H 11/23/17 00:49 PT 13.3 Seconds (9.4-12.1) H 11/25/17 03:08 APTT 25.6 Seconds (26.0-36.0) L 11/25/17 03:08 ABG pO2 79 mmHg (85-104) L 11/24/17 17:52 ABG Hematocrit 28.0 % (37.5-50.1) L 11/24/17 10:57 Sodium 131 mEq/L (136-145) L 11/30/17 00:56 Chloride 95 mEq/L (98-107) L 11/30/17 00:56 Glucose 122 mg/dL (70-105) H 11/30/17 00:56 POC Glucose 112 mg/dL (70-99) H 11/29/17 19:32 Calculated Osmolality 275 (280-300) L 11/30/17 00:56 HDL Cholesterol 34 mg/dL (40-59) L 11/23/17 16:28 - Diagnostic Findings Additional findings: CT OF THE HEAD WITH CONTRAST 11/30/2017 11:05 am TECHNIQUE: CT of the head/brain was performed with the administration of intravenous contrast. Multiplanar reformatted images are provided for review. Dose modulation, iterative reconstruction, and/or weight based adjustment of the mA/kV was utilized to reduce the radiation dose to as low as reasonably achievable. COMPARISON: 07/12/2017. HISTORY: ORDERING SYSTEM PROVIDED HISTORY: confusion, history of prostate cancer Additional tech notes: VERBAL OK FOR WITH AND WITHOUT CONTRAST PER DR BUCKNER 75 ml of [id number] FINDINGS: BRAIN/VENTRICLES: There is no acute intracranial hemorrhage, mass effect or midline shift. No abnormal extra-axial fluid collection. The baig-white differentiation is maintained without evidence of an acute infarct. There is no evidence of hydrocephalus. There are no abnormal areas of enhancement. ORBITS: The visualized portion of the orbits demonstrate no acute abnormality. SINUSES: The visualized paranasal sinuses demonstrate no acute abnormality. There is patchy density involving the mastoid air cells. SOFT TISSUES/SKULL: No acute abnormality of the visualized skull or soft tissues. CT/CT head/brain wo/w con IMPRESSION: 1. No acute intracranial abnormality. 2. No evidence for intracranial metastasis. Consult Discharge Plan - Plan Referrals: Benoit Martinez [Partnered Physician] - 12/04/17 1:45 pm (Dr. Lindsay had no openings, put patient in with Dr. Martinez) Poli Storey MD [Partnered Physician] - 12/24/17 1:15 pm Prema Best [Partnered Physician] - (SENT WEB REQUEST ON 11-27-17 @ 0685)
--- NOTE | 2017-11-30 13:59 | Electrocardiograph Report ---
[place] [id number] Test Date: 2017-11-30 Pat Name: James Sandhu Department: 110 Room: [facility] Gender: Pharmacy Consultant: : 1940 Requested By: Traci Harper Order Number: [id number] Reading MD: Karoline Bennett Measurements Intervals [place] Rate: 122 P: [place]: 0 QRS: -1 QRSD: 103 T: 22 QT: 325 QTc: 398 Interpretive Statements ATRIAL FLUTTER/TACHYCARDIA WITH RAPID VENTRICULAR RESPONSE ABNORMAL RHYTHM ECG Electronically Signed On 11-30-2017 13:57:54 EDT by Karoline Bennett
--- NOTE | 2017-11-30 14:51 | Electrocardiograph Report ---
[place] [id number] Test Date: 2017-11-29 Pat Name: James Sandhu Department: 110 Room: [facility] Gender: M Director Marketing Communications: : 1940 Requested By: Traci Harper Order Number: [id number] Reading MD: Justin Iglesias Measurements Intervals [place] Rate: 126 P: 254 PA: 223 QRS: 9 QRSD: 111 T: 50 QT: 331 QTc: 406 Interpretive Statements SUPRAVENTRICULAR TACHYCARDIA MODERATE INTRAVENTRICULAR CONDUCTION DELAY Electronically Signed On 11-30-2017 14:50:19 EDT by Justin Iglesias
[2017-11-30] MEDS ORDERED: Acetaminophen 325 MG TABLET PO PRN (15:08)
--- NOTE | 2017-11-30 15:19 | Event Note ---
Date of Encounter: 11/30/17 Time of Encounter: 15:[address] scan revealed no acute intracranial abnormality. His confusion has become better and he is presently sleeping. I discussed the case with neurology. They feel that the patient would be better off to be discharged to home. I agree with this. We will avoid sedatives disease would most likely have a paradoxical effect. We will arrange for a visiting home health associate director career services.
--- NOTE | 2017-11-30 15:21 | Physician Discharge Referral ---
Home Health/Hosp Referral Info Transfer to: Home Health Provider in Charge Post Discharge: PCP - Diagnosis (1) CAD (coronary artery disease), [place] coronary artery Priority: Primary Status: Acute (2) Postoperative pain Status: Acute - Respiratory Orders Smoking Cessation: Smoking cessation has been advised. For more information, call the [place] Tobacco Quit Line at 4-302-VOVL-NOW. - Diet/Nutrition Diet/Nutrition Orders: Regular - Activity Activity Orders: Up ad luz, Ambulate, Chair - Services Needed Following services are medically necessary services: Home Health Aide - Transfer Medications Home Medications: Amitriptyline [Elavil] 25 mg PO QPM 03/28/15 [History] Indomethacin [Indocin] 50 mg PO BID PRN 03/28/15 [History] Lisinopril/Hydrochlorothiazide [Zestoretic 20-12.5 mg Tablet] 1 each PO QAM [History] Ferrous Sulfate 325 mg PO BIDWM #60 tablet 07/04/15 [Rx] Allopurinol [Zyloprim 100 MG] 100 mg PO DAILY 11/23/17 [History] Donepezil [Aricept] 5 mg PO DAILY 11/23/17 [History] Fluticasone Propionate Nasal [Flonase] 1 spr NS DAILY 11/23/17 [History] Metoprolol [Lopressor] 100 mg PO QAM 11/23/17 [History] Metoprolol [Lopressor] 200 mg PO QPM 11/23/17 [History] Omeprazole [PriLOSEC] 40 mg PO DAILY 11/23/17 [History] traZODone [TraZODone] 50 - 100 mg PO HS 11/23/17 [History] Allergies/Adverse Reactions: 3 Allergy/AdvReac Type Severity Reaction Status Date / Time allantoin Allergy Unknown UNKNOWN Verified 11/23/17 11:22 atorvastatin [From Lipitor] Allergy Unknown UNKNOWN Verified 11/23/17 11:22 Sulfa (Sulfonamide Allergy Unknown UNKNOWN Verified 11/23/17 11:22 Antibiotics) Certification: Further, I certify that my clinical findings support that this patient is homebound (i.e. absences from home require considerable and taxing effort and are for medical reasons or jew services or infrequently or short duration when for other reasons) because: Homebound Reason: Post-surgery restriction and or conditions limit ability to leave home Attestation: My signature below is to certify that this patient is under my care and that I, or nurse practitioner, or a physician's assistant professor of german working with me, has a face-to -face encounter with this patient.
[2017-11-30] MEDS: Metoprolol 100 MG TABLET PO SCH (21:08)
[2017-12-01 02:29] LABS: Bilirubin,Urine Small (Negative); Blood,Urine Large (Negative); Clarity,Urine Cloudy (Clear); Color,Urine Red (Yellow); Glucose,Urine (UA) Normal (Normal); Ketones,Urine Trace mg/dL (Negative); Leukocyte Esterase,Urine Small (Negative); Nitrite,Urine Negative (Negative); Protein,Urine 30 mg/dL (Neg-Trace); Specific Gravity,Urine > 1.030 (1.010-1.025); Urobilinogen,Urine Normal (Normal)
[2017-12-01 02:31] LABS: Bacteria,Urine None Seen per hpf (None-Few); Hyaline Casts,Urine None Seen per lpf (None-Few); RBC,Urine TNTC per hpf (0-3); Squamous Epithelial Cell,Urine Moderate per lpf (None-Few)
--- NOTE | 2017-12-01 07:18 | Cardiothoracic Progress Note ---
Date of Encounter: 12/01/17 Time of Encounter: 07:15 - Assessment and plan (1) CAD (coronary artery disease), [place] coronary artery Current Visit: Yes Status: Acute We did stop the Lovenox and the patient's hematuria has improved. We will ask urology to see the patient today. A urine culture is pending. I do not feel that the patient needs to go home on anticoagulants. He is in normal sinus rhythm at this point. He has an unsteady gait and would be prone to falls. I did staple the left atrial appendage as well. Hopefully, he can be discharged to home in 1-2 days. Qualifiers: [place] vs. transplanted heart: [place] heart Associated angina: with unstable angina Qualified Code(s): I25.110 - Atherosclerotic heart disease of [place] coronary artery with unstable angina pectoris (2) Postoperative pain Current Visit: Yes Status: Acute The assessment and plan as outlined above was discussed with the patient and/or family members who expressed understanding and agreement. All questions were answered. - Subjective Interval history: The patient's confusion is markedly improved. He did have one episode of hematuria last night. Vital Signs, Last 4 Hours Temp Pulse Resp BP Pulse Ox 12/01/17 05:06 98.3 F 81 18 161/84 93 12/01/17 04:10 71 Oxgyen Flow Rate Oxygen Flow Rate (LPM) 2 Clinical Data, last 8 Hours Output, Urine Amount 100 Output, Urine Amount 300 Lungs are clear to percussion and auscultation. Heart is in a normal sinus rhythm. All incisions are healing well without signs of infection and the sternum is stable. - Labs 11/30/17 00:56 11/30/17 00:56 - VTE Reasons for not Prescribing Prophylaxis: Medical contraindication Documentation of Mechanical Device: Graduated compression elastic hosiery Consult Discharge Plan - Plan Referrals: Benoit Martinez [Partnered Physician] - 12/04/17 1:45 pm (Dr. Lindsay had no openings, put patient in with Dr. Martinez) Poli Storey MD [Partnered Physician] - 12/24/17 1:15 pm Prema Best [Partnered Physician] - (SENT WEB REQUEST ON 11-27-17 @ [phone])
[2017-12-01 07:36] LABS: Hematocrit 31.9 % (37.5-50.1); Hemoglobin 10.2 g/dL (12.9-16.9); Mean Corpuscular Hemoglobin 29.7 pg (28.0-33.3); Mean Corpuscular Volume 92.7 fL (83.0-100.0); Mean Platelet Volume 10.3 fL (9.4-12.4); Platelet Count 303 K/mcL (140-400); Red Blood Count 3.44 M/mcL (4.19-5.50); Red Cell Distribution Width 14.1 % (11.5-14.5)
[2017-12-01 07:44] LABS: BUN/Creatinine Ratio 19 (6-26); Blood Urea Nitrogen 14 mg/dL (8-23); Calcium 8.7 mg/dL (8.6-10.3); Carbon Dioxide 26 mEq/L (23-29); Chloride 98 mEq/L (98-107); Glucose 108 mg/dL (70-105); Osmolality,Calculated 277 (280-300); Potassium 4.4 mEq/L (3.5-5.1); Sodium 133 mEq/L (136-145); eGFR For African Americans > 60 (> 60); eGFR For Non-African Americans > 60 (> 60)
[2017-12-01] MEDS: Insulin LISPRO 300 UNITS/3 ML VIAL SQ SCH ×4 (08:00→20:19)
[2017-12-01] MEDS: Chlorhexidine Rinse 15 ML MOUTHWASH MM SCH ×2 (08:00→20:19)
[2017-12-01] MEDS: hydroCHLOROthiazide 25 MG TABLET PO SCH (08:01)
[2017-12-01] MEDS: *HR* Amiodarone 200 MG TABLET PO SCH ×2 (08:01→20:19)
[2017-12-01] MEDS: Aspirin 81 MG TAB.CHEW PO SCH (08:01)
[2017-12-01] MEDS: Metoprolol 100 MG TABLET PO SCH ×2 (08:01→20:20)
[2017-12-01] MEDS: Lisinopril 20 MG TABLET PO SCH (08:01)
[2017-12-01 09:14] LABS: Lymphocytes # 1.7 K/mcL (0.6-4.6); Monocytes # 0.4 K/mcL (0.0-1.3); Neutrophils # 7.2 K/mcL (1.6-8.9); Platelet Estimate Normal (Normal)
--- NOTE | 2017-12-01 16:35 | Urology - Consult Note ---
Date of Encounter: 12/01/17 Time of Encounter: 16:34 - Assessment and Plan (1) Gross hematuria Current Visit: Yes Status: Acute Assessment and plan: Patient developed one episode of painless gross hematuria that is now resolved. Multiple potential etiologies for the hematuria. 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 No urologic intervention required during this hospitalization. I plan to recheck a urinalysis at his follow-up visit which should be in the next 4-6 weeks. If he has continued microscopic hematuria will likely proceed with a cystoscopy to rule out urothelial malignancy. Urology CN:HPI Consult date: 12/01/17 History of present illness: Patient currently admitted to the hospital after heart surgery. Developed painless gross hematuria in the last 24 hours which is now resolved today. Patient is known to the urology service. History of Cecelia 3+3 prostate cancer treated with radiation therapy in [place] approximately 3 years ago. His PSA remains less than 1 indicating an excellent response to the radiation. He does admit to some frequency, urgency, hesitancy but it is back to baseline. Past Med Surg Social Fam HX - Past Medical History Medical history: coronary artery disease, hyperlipidemia, hypertension, renal disease Psychiatric history: no psych history - Past Surgical History Surgical History: orthopedic, other (Right total knee replacement) - Social History Smoking Status: Never smoker Smokeless Tobacco Status: No Alcohol use: none Drug use: none - Family History Father Hx Family Cardiac Disorders: Yes (Stroke) Sister Hx Family Cardiac Disorders: Yes (Stroke) Hx Family Cancer: Yes (Leukemia) Medications and Allergies Amitriptyline [Elavil] 25 mg PO QPM 03/28/15 [History] Indomethacin [Indocin] 50 mg PO BID PRN 03/28/15 [History] Lisinopril/Hydrochlorothiazide [Zestoretic 20-12.5 mg Tablet] 1 each PO QAM [History] Ferrous Sulfate 325 mg PO BIDWM #60 tablet 07/04/15 [Rx] Allopurinol [Zyloprim 100 MG] 100 mg PO DAILY 11/23/17 [History] Donepezil [Aricept] 5 mg PO DAILY 11/23/17 [History] Fluticasone Propionate Nasal [Flonase] 1 spr NS DAILY 11/23/17 [History] Metoprolol [Lopressor] 100 mg PO QAM 11/23/17 [History] Metoprolol [Lopressor] 200 mg PO QPM 11/23/17 [History] Omeprazole [PriLOSEC] 40 mg PO DAILY 11/23/17 [History] traZODone [TraZODone] 50 - 100 mg PO HS 11/23/17 [History] 3 Allergy/AdvReac Type Severity Reaction Status Date / Time allantoin Allergy Unknown UNKNOWN Verified 11/23/17 11:22 atorvastatin [From Lipitor] Allergy Unknown UNKNOWN Verified 11/23/17 11:22 Sulfa (Sulfonamide Allergy Unknown UNKNOWN Verified 11/23/17 11:22 Antibiotics) Review of Systems - Constitutional weakness, no fever(s), no malaise - EENT Nose, mouth and throat: no dizziness, no headache(s) - Cardiovascular no chest pain - Respiratory cough - Gastrointestinal no abdominal pain, no nausea - Genitourinary difficulty urinating, urinary urgency - Musculoskeletal back pain - Integumentary no erythema - Neurological no confusion - Psychiatric no anxiety - Hematologic/Lymphatic no easy bleeding - Allergic/Immunologic no throat swelling Exam Initial Vital Signs Temp Pulse Resp BP Pulse Ox 98.3 F 112 20 166/88 97 11/22/17 16:24 11/22/17 16:24 11/22/17 16:24 11/22/17 16:24 11/22/17 16:24 - General physical appearance Present: no distress, chronically ill - Eyes Present: PERRL, conjunctiva is clear - ENT Present: normal nares - Neck Present: no masses, no lymphadenopathy - Respiratory Present: normal respiratory effort - Cardiovascular Cardiovascular exam IM: RRR - Abdomen Abdomen: Present: soft. Absent: masses, suprapubic tenderness - Genitourinary normal penis with no external lesions - Integumentary Present: no rash - Neurologic Present: normal coordination. Absent: disoriented, confused - Musculoskeletal Present: normal gait (Slow) Urology Results - Labs 12/01/17 07:11 12/01/17 07:11 Abnormal lab results RBC 3.44 M/mcL (4.19-5.50) L 12/01/17 07:11 Hgb 10.2 g/dL (12.9-16.9) L 12/01/17 07:11 Hct 31.9 % (37.5-50.1) L 12/01/17 07:11 Immature Gran % 4.5 % (0-4) H 11/30/17 00:56 Nucleated RBCs/100 WBC 0.7 /100 WBC (0) H 11/23/17 00:49 PT 13.3 Seconds (9.4-12.1) H 11/25/17 03:08 APTT 25.6 Seconds (26.0-36.0) L 11/25/17 03:08 ABG pO2 79 mmHg (85-104) L 11/24/17 17:52 ABG Hematocrit 28.0 % (37.5-50.1) L 11/24/17 10:57 Sodium 133 mEq/L (136-145) L 12/01/17 07:11 Glucose 108 mg/dL (70-105) H 12/01/17 07:11 POC Glucose 110 mg/dL (70-99) H 11/30/17 20:11 Calculated Osmolality 277 (280-300) L 12/01/17 07:11 HDL Cholesterol 34 mg/dL (40-59) L 11/23/17 16:28 Urine Color Red (Yellow) A 12/01/17 02:15 Urine Clarity Cloudy (Clear) A 12/01/17 02:15 Ur Specific [place] > 1.030 (1.010-1.025) H 12/01/17 02:15 Urine Protein 30 mg/dL (Neg-Trace) H 12/01/17 02:15 Urine Ketones Trace mg/dL (Negative) H 12/01/17 02:15 Urine Blood Large (Negative) H 12/01/17 02:15 Urine Bilirubin Small (Negative) H 12/01/17 02:15 Ur Leukocyte Esterase Small (Negative) H 12/01/17 02:15 Urine Microscopic RBC TNTC per hpf (0-3) H 12/01/17 02:15 Urine Microscopic WBC 5-15 per hpf (0-3) H 12/01/17 02:15 Ur Squamous Epith Cells Moderate per lpf (None-Few) H 12/01/17 02:15 Ur Culture Indicated? YES (NO) A 12/01/17 02:15 Diabetes panel 12/01/17 Range/Units 07:11 Sodium 133 L (136-145) mEq/L Potassium 4.4 (3.5-5.1) mEq/L Chloride 98 (98-107) mEq/L Carbon Dioxide 26 (23-29) mEq/L BUN 14 (8-23) mg/dL Creatinine 0.72 (0.70-1.30) mg/dL Glucose 108 H (70-105) mg/dL Calcium 8.7 (8.6-10.3) mg/dL Calcium panel 12/01/17 Range/Units 07:11 Calcium 8.7 (8.6-10.3) mg/dL Pituitary panel 12/01/17 Range/Units 07:11 Sodium 133 L (136-145) mEq/L Potassium 4.4 (3.5-5.1) mEq/L Chloride 98 (98-107) mEq/L Carbon Dioxide 26 (23-29) mEq/L BUN 14 (8-23) mg/dL Creatinine 0.72 (0.70-1.30) mg/dL Glucose 108 H (70-105) mg/dL Calcium 8.7 (8.6-10.3) mg/dL Adrenal panel 12/01/17 Range/Units 07:11 Sodium 133 L (136-145) mEq/L Potassium 4.4 (3.5-5.1) mEq/L Chloride 98 (98-107) mEq/L Carbon Dioxide 26 (23-29) mEq/L BUN 14 (8-23) mg/dL Creatinine 0.72 (0.70-1.30) mg/dL Glucose 108 H (70-105) mg/dL Calcium 8.7 (8.6-10.3) mg/dL All other labs normal. Consult Discharge Plan - Plan Referrals: Benoit Martinez [Partnered Physician] - 12/04/17 1:45 pm (Dr. Lindsay had no openings, put patient in with Dr. Martinez) Poli Storey MD [Partnered Physician] - 12/24/17 1:15 pm Prema Best [Partnered Physician] - (SENT WEB REQUEST ON 11-27-17 @ [phone])
[2017-12-02 05:09] LABS: Basophils # 0.1 K/mcL (0.0-0.2); Basophils % 0.8 %; Eosinophils # 0.2 K/mcL (0.0-0.6); Hematocrit 30.7 % (37.5-50.1); Hemoglobin 10.2 g/dL (12.9-16.9); Immature Granulocytes % 10.6 % (0-4); Lymphocytes # 0.9 K/mcL (0.6-4.6); Lymphocytes % 11.7 %; Mean Corpuscular HGB Conc 33.2 g/dL (31.6-35.5); Mean Corpuscular Hemoglobin 30.7 pg (28.0-33.3); Mean Corpuscular Volume 92.5 fL (83.0-100.0); Mean Platelet Volume 10.3 fL (9.4-12.4); Monocytes # 0.8 K/mcL (0.0-1.3); Monocytes % 9.7 %; Neutrophils # 5.1 K/mcL (1.6-8.9); Platelet Count 337 K/mcL (140-400); Red Blood Count 3.32 M/mcL (4.19-5.50); Red Cell Distribution Width 14.2 % (11.5-14.5); Segmented Neutrophils % 64.2 %
[2017-12-02 05:33] LABS: BUN/Creatinine Ratio 22 (6-26); Blood Urea Nitrogen 15 mg/dL (8-23); Calcium 8.7 mg/dL (8.6-10.3); Carbon Dioxide 27 mEq/L (23-29); Chloride 97 mEq/L (98-107); Glucose 125 mg/dL (70-105); Osmolality,Calculated 276 (280-300); Sodium 132 mEq/L (136-145); eGFR For African Americans > 60 (> 60); eGFR For Non-African Americans > 60 (> 60)
[2017-12-02 06:06] LABS: Platelet Clumps Few (Not Present); Reactive Lymphocytes Present (Not Present)
--- NOTE | 2017-12-02 07:04 | Discharge Summary ---
Orders not resulted at time of discharge: Pending orders 12/01/17 02:15 Culture,Urine [RM] Stat Date of Encounter: 12/02/17 Time of Encounter: 06:55 - Discharge Diagnosis (1) CAD (coronary artery disease), [place] coronary artery Priority: Primary Status: Acute Qualifiers: [place] vs. transplanted heart: [place] heart Associated angina: with unstable angina Qualified Code(s): I25.110 - Atherosclerotic heart disease of [place] coronary artery with unstable angina pectoris (2) Postoperative pain Priority: Secondary Status: Acute - Hospital Course Hospital course: Mr. Sandhu is a 77 year old male The patient is a 77-year-old gentleman with a history of hypertension and hypercholesterolemia who presented with chest pain and paroxysmal atrial fibrillation. Cardiac catheterization revealed severe coronary artery disease and on 11/24/2017, I took him to the operating room for coronary artery bypass grafting 2, utilizing the left internal mammary artery, modified Maze procedure and left atrial appendage stapling. Postoperatively his chest tubes and pacing wires were removed. He did have some confusion and agitation particularly at night. CT scan of the head revealed no acute changes. He was seen by neurology and psychiatry and they felt that he had pre-existing dementia. He had been on Aricept preoperatively. They recommended that we avoid pain medication and sedatives as much as possible. They also recommended that we discharge him to home, as opposed to an extended care facility. He did have intermittent atrial fibrillation postoperatively. However, we did not send him home on anticoagulants other than aspirin. He did have an unsteady gait and was prone to falls in addition he did have some hematuria. He was seen by urology for hematuria and they felt that this was secondary to his previous prostate cancer and radiation. They plan to follow-up as an outpatient. He did have a positive urine culture, but they felt that he should not be treated at this time. The patient otherwise did well and was discharged on December 02. At that time he was afebrile. Lungs were clear to percussion and auscultation. Heart was in a normal sinus rhythm. All incisions were healing well without signs of infection and the sternum was stable. Discharge medications are on the med rec. We did not give him pain medication. He is to take Advil or Tylenol for pain. He is to return to his previous and regular diet. He was to avoid heavy lifting for a total of 3 months after surgery, but to walk as much as possible. He was to follow up and see me in the office in 4 weeks as directed. He was to follow up with his urologist, clinical nursing instructor and primary care physician as directed. He was to call sooner for any difficulties. - Time Spent with Patient Total time spent providing and/or coordinating discharge services: - Discharge Medications Prescriptions: Amiodarone [Cordarone] 200 mg PO BID #60 tablet Atorvastatin [Lipitor] 80 mg PO HS #30 tablet Home Medications: Amitriptyline [Elavil] 25 mg PO QPM 03/28/15 [History] Indomethacin [Indocin] 50 mg PO BID PRN 03/28/15 [History] Lisinopril/Hydrochlorothiazide [Zestoretic 20-12.5 mg Tablet] 1 each PO QAM [History] Ferrous Sulfate 325 mg PO BIDWM #60 tablet 07/04/15 [Rx] Allopurinol [Zyloprim 100 MG] 100 mg PO DAILY 11/23/17 [History] Donepezil [Aricept] 5 mg PO DAILY 11/23/17 [History] Fluticasone Propionate Nasal [Flonase] 1 spr NS DAILY 11/23/17 [History] Metoprolol [Lopressor] 100 mg PO QAM 11/23/17 [History] Metoprolol [Lopressor] 200 mg PO QPM 11/23/17 [History] Omeprazole [PriLOSEC] 40 mg PO DAILY 11/23/17 [History] traZODone [TraZODone] 50 - 100 mg PO HS 11/23/17 [History] Amiodarone [Cordarone] 200 mg PO BID #60 tablet 12/02/17 [Rx] Aspirin 81 mg PO DAILY tab.chew 12/02/17 [Rx] Atorvastatin [Lipitor] 80 mg PO HS #30 tablet 12/02/17 [Rx] DiphenhydraMINE [Benadryl] 25 mg PO HS PRN capsule 12/02/17 [Rx] Allergies/Adverse Reactions: 3 Allergy/AdvReac Type Severity Reaction Status Date / Time allantoin Allergy Unknown UNKNOWN Verified 11/23/17 11:22 atorvastatin [From Lipitor] Allergy Unknown UNKNOWN Verified 11/23/17 11:22 Sulfa (Sulfonamide Allergy Unknown UNKNOWN Verified 11/23/17 11:22 Antibiotics) Date of admission: 11/23/17 16:54 Primary care physician: Brandan Lindsay DO Consults: 11/24/17 11:16 Consult to Cardiac Rehabilitation-Phase1 [CONS] Routine Comment: Reason for Consult: Post open heart Call Completed: Yes Consult to Marketing Graphics Specialist [CONS] Routine Reason for SW Consult: open heart 11/26/17 09:35 Consult for Pharmacy Education [CONS] Routine Reason for Consult: Post-Op Heart Call Completed: Yes Consult to Occupational Therapy [CONS] Routine Comment: Evaluate, develop and implement POC Reason for Consult: Post-Op Heart Does patient have active BEDREST order?: No Is patient medically & hemodynamically stable?: Yes Consult to Physical Therapy [CONS] Routine Comment: Evaluate, develop and implement POC Reason for Consult: Post open heart Does patient have active BEDREST order?: No Is patient medically & hemodynamically stable?: Yes 11/29/17 08:38 Consult to Psychiatry [CONS] Routine Consulting Provider: Psychiatry Becky Reason for Consult: Dementia, confusion after OR, medication reccomendations. Call Completed: No 11/30/17 09:17 Consult to Neurology [CONS] Routine Consulting Provider: [facility] Reason for Consult: confusion Call Completed: Yes 12/01/17 07:20 Consult to Urology [CONS] Routine Consulting Provider: Urology [facility] Reason for Consult: hematuria Call Completed: Yes Procedure(s) Performed: 11/24/2017. Coronary artery bypass grafting 2, utilizing the left internal mammary artery. Also, modified maze procedure with left atrial appendage stapling. Discharging clinician: Poli Storey Anticipated date of discharge: 12/02/17 Physical Examination Vital Signs, Last 4 Hours Temp Pulse Resp BP Pulse Ox 12/02/17 03:44 98.1 F 97 18 130/92 94 - Patient Status Disposition: Home Health Service Condition: Fair Functional capacity at discharge: independent ambulation Overall status at discharge: patient is progressing back to baseline - Discharge Instructions Follow Up With: Benoit Martinez [Partnered Physician] - 12/04/17 1:45 pm (Dr. Lindsay had no openings, put patient in with Dr. Martinez) Poli Storey MD [Partnered Physician] - 12/24/17 1:15 pm Prema Best [Partnered Physician] - (SENT WEB REQUEST ON 11-27-17 @ [phone]) Open Heart Registry Aspirin Cont/Prescribed at DC: Yes Beta Vicente Cont/Prescribed at DC: Yes Statin Cont/Prescribed at DC: Yes ESTHER/ARB Cont/Prescribed at DC: Yes - VTE Reasons for not Prescribing Prophylaxis: Medical contraindication Documentation of Mechanical Device: Graduated compression elastic hosiery
[2017-12-02 07:12] VITALS: BP 162/87
[2017-12-02] MEDS: Aspirin 81 MG TAB.CHEW PO SCH (08:02)
[2017-12-02] MEDS: *HR* Amiodarone 200 MG TABLET PO SCH (08:02)
[2017-12-02] MEDS: hydroCHLOROthiazide 25 MG TABLET PO SCH (08:02)
[2017-12-02] MEDS: Metoprolol 100 MG TABLET PO SCH (08:02)
[2017-12-02] MEDS: Insulin LISPRO 300 UNITS/3 ML VIAL SQ SCH (08:03)
[2017-12-02] MEDS: Chlorhexidine Rinse 15 ML MOUTHWASH MM SCH (08:03)
[2017-12-02] MEDS: Lisinopril 20 MG TABLET PO SCH (08:03)
== END 2017-12-02 11:24 | disposition home health service (06) | DRG 234 ==
LOC: 3BNU 16:23 → EMEROO 16:23 → 3BNU 18:57 → SUATTDRO 11-23 16:54 → 3BNU 11-24 07:40 → ICNU 11-24 07:46 → 2NNU 11-26 16:57
PROVIDERS: ADMIT Thoracic Surgery (Cardiothoracic Vascular Surgery); ATTEND Internal Medicine

== ENCOUNTER 2017-12-28 05:30 | Observation (INO) ==
--- NOTE | 2017-12-28 05:48 | Emergency Department Note ---
Disposition Clinical Impression: Nonproductive cough Chest pain Qualifiers: Chest pain type: unspecified Qualified Code(s): R07.9 - Chest pain, unspecified Disposition: Still a Patient Condition: Fair Referrals: Brandan Lindsay DO [Primary Care Provider] - Forms: ED Satisfaction Letter Time of Disposition: 06:00 Chest Pain HPI - General Chief Complaint: ED Chest Pain Stated Complaint: CP/COUGH Time Seen by Provider: 12/28/17 05:46 Source: patient, family Mode of arrival: ambulatory Limitations: no limitations Vital Signs Reviewed: Yes Nursing Notes Reviewed: Yes - History of Present Illness HPI Narrative: Nontoxic-appearing 77-year-old male presents for evaluation of anterior chest wall pain and a nonproductive cough that began sometime yesterday afternoon. He denies any associated fever or chills. He denies any nausea or vomiting. He denies any pleuritic component to this pain. He denies any hemoptysis. 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 Storey on 11/24/17. He states that the pain began in the right anterior chest yesterday afternoon and migrated in the lower left anterior chest sometime yesterday evening. Pt complaint: chest pain Onset (ago): day(s) (Yesterday afternoon) Pain Location: left chest, right chest Severity: moderate Severity scale (1-10): 4 Quality: aching, dull Pain Radiation: none Improves with: nothing Worsens with: nothing Context: recent surgery Associated symptoms: Reports: cough. Denies: nausea, vomiting, fever - Related Data Home Medications Medication Instructions Recorded Confirmed Amitriptyline [Elavil] 25 mg PO QPM 03/28/15 11/23/17 Indomethacin [Indocin] 50 mg PO BID PRN 03/28/15 11/23/17 Lisinopril/Hydrochlorothiazide 1 each PO QAM 03/28/15 11/23/17 [Zestoretic 20-12.5 mg Tablet] Allopurinol [Zyloprim 100 MG] 100 mg PO DAILY 11/23/17 11/23/17 Donepezil [Aricept] 5 mg PO DAILY 11/23/17 11/23/17 Fluticasone Propionate Nasal 1 spr NS DAILY 11/23/17 11/23/17 [Flonase] Metoprolol [Lopressor] 100 mg PO QAM 11/23/17 11/23/17 Metoprolol [Lopressor] 200 mg PO QPM 11/23/17 11/23/17 Omeprazole [PriLOSEC] 40 mg PO DAILY 11/23/17 11/23/17 traZODone [TraZODone] 50 - 100 mg PO HS 11/23/17 11/23/17 Previous Rx's Medication Instructions Recorded Ferrous Sulfate 325 mg PO BIDWM #60 tablet 07/04/15 Amiodarone [Cordarone] 200 mg PO BID #60 tablet 12/02/17 Aspirin 81 mg PO DAILY tab.chew 12/02/17 Atorvastatin [Lipitor] 80 mg PO HS #30 tablet 12/02/17 DiphenhydraMINE [Benadryl] 25 mg PO HS PRN capsule 12/02/17 Allergies Allergy/AdvReac Type Severity Reaction Status Date / Time allantoin Allergy Unknown UNKNOWN Verified 12/28/17 05:32 atorvastatin [From Lipitor] Allergy Unknown UNKNOWN Verified 12/28/17 05:32 Sulfa (Sulfonamide Allergy Unknown UNKNOWN Verified 12/28/17 05:32 Antibiotics) All systems ED: reviewed and negative except as stated. Constitutional: Denies: fever, chills, weakness, weight change Eyes: Denies: eye pain, eye discharge, vision change ENT ED: Denies: ear pain, throat pain, dental pain, hearing loss, epistaxis, congestion, dysphagia Cardiovascular: Reports: as per HPI, chest pain. Denies: palpitations, dyspnea on exertion, edema, syncope Respiratory: Reports: as per HPI, cough. Denies: dyspnea, wheezes, hemoptysis, stridor, sputum production Gastrointestinal: Denies: abdominal pain, nausea, vomiting, diarrhea, constipation, hematemesis, melena, hematochezia Genitourinary: Denies: urgency, dysuria, frequency, hematuria Musculoskeletal: Denies: back pain, neck pain, arthralgia, myalgia Integumentary: Denies: rash, abrasion, lesions Neurological: Denies: headache, weakness, numbness, paresthesias, confusion, abnormal gait, vertigo Psychiatric: Denies: anxiety, depression, suicidal thoughts, homicidal thoughts , auditory hallucinations, visual hallucinations Endocrine: Denies: fatigue Hematological/Lymphatic: Denies: easy bleeding, easy bruising Allergic/Immunologic: Denies: facial swelling, urticaria Chest Pain PMH - Past Medical History Medical history: Reports: coronary artery disease, hyperlipidemia, hypertension , renal disease Surgical history: Reports: orthopedic, other (Right total knee replacement) Psychiatric history: Reports: no psych history - Social History Smoking Status: Never smoker Alcohol use: Reports: none Drug use: Reports: none Physical Exam - General Limitations: no limitations General appearance: alert, in no apparent distress - Head Head exam: atraumatic, normocephalic, normal inspection - Eye Eye exam: Present: normal appearance, PERRL, EOMI. Absent: nystagmus - ENT ENT exam: mucous membranes moist - Neck Neck exam: Present: normal inspection, full ROM, trachea midline - Chest Chest inspection: Present: normal inspection, symmetric chest wall rise - Respiratory Respiratory exam: Present: normal lung sounds bilaterally. Absent: respiratory distress, wheezes, stridor, accessory muscle use, prolonged expiratory phase - Cardiovascular Cardiovascular exam: Present: regular rate, normal rhythm, normal heart sounds - Abdominal Exam Abdominal exam: Present: soft, Non-Tender - Extremities Exam Extremities exam: Present: normal inspection, full ROM. Absent: tenderness, pedal edema - Neurological Exam Neurological exam: Present: alert, oriented X3 - Psychiatric Psychiatric exam: Present: normal affect, normal mood - Skin Skin exam: Present: warm, dry, intact, normal color. Absent: rash Course Vital Signs Temperature 98.0 F 12/28/17 05:30 Pulse Rate 61 12/28/17 05:30 Respiratory Rate 13 12/28/17 05:30 Blood Pressure 145/77 12/28/17 05:30 O2 Sat by Pulse Oximetry 95 12/28/17 05:30 Temperature 98.0 F 12/28/17 05:30 Pulse Rate 61 12/28/17 05:30 Respiratory Rate 13 12/28/17 05:30 Blood Pressure 145/77 12/28/17 05:30 O2 Sat by Pulse Oximetry 95 12/28/17 05:30 Oxygen Delivery Oxygen Delivery Room Air Chest Pain - Medical Records Medical records reviewed: Yes I reviewed the patient's medical records. Cassie - Cassie Situation: Demographics, MOA Background: Presenting Complaint, Relevant PMH, Meds, & Allergies Assessment: Vital Signs, Course and respsone to treatment, Exam Concerns, Patient/Family Expectation, Pertinant Lab Results, Outstanding Labs Recommendation: Barrier(s) to disposition, Recommendation based on pending studies, treatments, or consults S.B.A.R. Report Given to: NINA Jason S.B.A.Joan Repor Time: 06:00
[2017-12-28 06:43] LABS: Basophils % 0.3 %; Eosinophils # 0.1 K/mcL (0.0-0.6); Eosinophils % 1.7 %; Hemoglobin 12.1 g/dL (12.9-16.9); Immature Granulocytes % 0.8 % (0-4); Lymphocytes # 0.8 K/mcL (0.6-4.6); Lymphocytes % 10.3 %; Mean Corpuscular HGB Conc 31.8 g/dL (31.6-35.5); Mean Corpuscular Hemoglobin 29.6 pg (28.0-33.3); Mean Corpuscular Volume 92.9 fL (83.0-100.0); Mean Platelet Volume 9.9 fL (9.4-12.4); Monocytes # 0.5 K/mcL (0.0-1.3); Monocytes % 6.3 %; Platelet Count 253 K/mcL (140-400); Red Blood Count 4.09 M/mcL (4.19-5.50); Red Cell Distribution Width 14.6 % (11.5-14.5); Segmented Neutrophils % 80.6 %
[2017-12-28 06:58] LABS: INR 1.1
--- NOTE | 2017-12-28 06:58 | Emergency Department Note ---
Disposition Clinical Impression: Nonproductive cough Chest pain Qualifiers: Chest pain type: unspecified Qualified Code(s): R07.9 - Chest pain, unspecified Disposition: Admitted As Inpatient Condition: Fair Referrals: Brandan Lindsay DO [Primary Care Provider] - Forms: ED Satisfaction Letter General Adult HPI - General Chief complaint: ED Chest Pain Stated complaint: CP/COUGH Time Seen by Provider: 12/28/17 05:46 Source: patient, family Mode of arrival: ambulatory Limitations: no limitations - History of Present Illness Pain Scale: 4 - Related Data Home Medications Medication Instructions Recorded Confirmed Amitriptyline [Elavil] 25 mg PO QPM 03/28/15 12/28/17 Indomethacin [Indocin] 50 mg PO BID PRN 03/28/15 12/28/17 Lisinopril/Hydrochlorothiazide 1 each PO QAM 03/28/15 12/28/17 [Zestoretic 20-12.5 mg Tablet] Allopurinol [Zyloprim 100 MG] 100 mg PO DAILY 11/23/17 12/28/17 Donepezil [Aricept] 5 mg PO DAILY 11/23/17 12/28/17 Fluticasone Propionate Nasal 1 spr NS DAILY 11/23/17 12/28/17 [Flonase] Metoprolol [Lopressor] 100 mg PO QAM 11/23/17 12/28/17 Metoprolol [Lopressor] 200 mg PO QPM 11/23/17 12/28/17 Omeprazole [PriLOSEC] 40 mg PO DAILY 11/23/17 12/28/17 traZODone [TraZODone] 50 - 100 mg PO HS 11/23/17 12/28/17 Linezolid [Linezolid] 600 mg PO Q12H 12/28/17 12/28/17 Previous Rx's Medication Instructions Recorded Ferrous Sulfate 325 mg PO BIDWM #60 tablet 07/04/15 Amiodarone [Cordarone] 200 mg PO BID #60 tablet 12/02/17 Aspirin 81 mg PO DAILY tab.chew 12/02/17 Atorvastatin [Lipitor] 80 mg PO HS #30 tablet 12/02/17 DiphenhydraMINE [Benadryl] 25 mg PO HS PRN capsule 12/02/17 Allergies Allergy/AdvReac Type Severity Reaction Status Date / Time allantoin Allergy Unknown UNKNOWN Verified 12/28/17 07:56 atorvastatin [From Lipitor] Allergy Unknown UNKNOWN Verified 12/28/17 07:56 Sulfa (Sulfonamide Allergy Unknown UNKNOWN Verified 12/28/17 07:56 Antibiotics) Constitutional: Denies: fever, chills, weakness, weight change Eyes: Denies: eye pain, eye discharge, vision change ENT ED: Denies: ear pain, throat pain, dental pain, hearing loss, epistaxis, congestion, dysphagia Cardiovascular: Reports: as per HPI, chest pain. Denies: palpitations, dyspnea on exertion, edema, syncope Respiratory: Reports: as per HPI, cough. Denies: dyspnea, wheezes, hemoptysis, stridor, sputum production Gastrointestinal: Denies: abdominal pain, nausea, vomiting, diarrhea, constipation, hematemesis, melena, hematochezia Genitourinary: Denies: urgency, dysuria, frequency, hematuria Musculoskeletal: Denies: back pain, neck pain, arthralgia, myalgia Integumentary: Denies: rash, abrasion, lesions Neurological: Denies: headache, weakness, numbness, paresthesias, confusion, abnormal gait, vertigo Psychiatric: Denies: anxiety, depression, suicidal thoughts, homicidal thoughts , auditory hallucinations, visual hallucinations Endocrine: Denies: fatigue Hematological/Lymphatic: Denies: easy bleeding, easy bruising Allergic/Immunologic: Denies: facial swelling, urticaria Past Medical History - Past Medical History Medical history: Reports: coronary artery disease, hyperlipidemia, hypertension , renal disease Surgical history: Reports: orthopedic, other (Right total knee replacement) Psychiatric history: Reports: no psych history - Social History Smoking Status: Never smoker Smokeless Tobacco Status: No Alcohol use: Reports: none Drug use: Reports: none Physical Exam - General Limitations: no limitations General appearance: alert, in no apparent distress Course Vital Signs Temperature 98.0 F 12/28/17 05:30 Pulse Rate 61 12/28/17 05:30 Respiratory Rate 13 12/28/17 05:30 Blood Pressure 145/77 12/28/17 05:30 O2 Sat by Pulse Oximetry 95 12/28/17 05:30 Temperature 98.0 F 12/28/17 05:30 Pulse Rate 61 12/28/17 08:09 Respiratory Rate 18 12/28/17 08:09 Blood Pressure 140/65 12/28/17 08:09 O2 Sat by Pulse Oximetry 94 12/28/17 08:09 Oxygen Delivery Oxygen Delivery Room Air Medical Decision Making - MDM Narrative Medical decision making narrative: Received reported from Abdoul Cha CNP. 77 year old male presents with chest pain and nonproductive cough since yesterday. Chest pain started on right side chest and moving to left side at this midnight. Worsening pain with cough. No shortness of breath. No chills and fever. Pt had CABG at 11/[address] Storey. pt is currently on antibiotics Zyvox for abscess on buttock. Reported improving abscess. Physical exam: Alert and oriented, normal BP and pulse. Bilateral lungs sound clear. Chest xray: effusion on bilateral lungs base, but no significant change comparing to 11/24. Labs: normal white cell, elevated BNP 744 (no baseline BNP before), negative Troponin. unremarkable EKG. Dr. Burden saw the patient, consider try Nitroglyceride for chest pain. Will admit pt for chest pain workup. 07:45 am, pt reported the pain relieved from 4 to 3 after taking Nitroglyceride. 7:50 am, paged hospitalist. 8:[address] Marquez, pt is accepted for chest pain rule out. - Lab Data Lab results reviewed: Yes I reviewed the patient's lab results. Result diagrams: 12/28/17 06:35 12/28/17 06:35 Lab Results 12/28/17 12/28/17 12/28/17 Range/Units 06:35 06:35 06:35 WBC 7.5 (4.3-11.1) K/mcL RBC 4.09 L (4.19-5.50) M/mcL Hgb 12.1 L (12.9-16.9) g/dL Hct 38.0 (37.5-50.1) % MCV 92.9 (83.0-100.0) fL MCH 29.6 (28.0-33.3) pg MCHC 31.8 (31.6-35.5) g/dL RDW 14.6 H (11.5-14.5) % Plt Count 253 (140-400) K/mcL MPV 9.9 (9.4-12.4) fL Immature Gran % 0.8 (0-4) % Seg Neutrophils % 80.6 % Lymphocytes % 10.3 % Monocytes % 6.3 % Eosinophils % 1.7 % Basophils % 0.3 % Neutrophils # 6.0 (1.6-8.9) K/mcL Lymphocytes # 0.8 (0.6-4.6) K/mcL Monocytes # 0.5 (0.0-1.3) K/mcL Eosinophils # 0.1 (0.0-0.6) K/mcL Basophils # 0.0 (0.0-0.2) K/mcL PT 12.0 (9.4-12.1) Seconds INR 1.1 APTT 28.2 (26.0-36.0) Seconds Sodium (136-145) mEq/L Potassium (3.5-5.1) mEq/L Chloride (98-107) mEq/L Carbon Dioxide (23-29) mEq/L BUN (8-23) mg/dL Creatinine (0.70-1.30) mg/dL Est GFR ( Amer) (> 60) Est GFR (Non-Af Amer) (> 60) BUN/Creatinine Ratio (6-26) Glucose (70-105) mg/dL Calculated Osmolality (280-300) Calcium (8.6-10.3) mg/dL Troponin I (< 0.04) ng/mL B-Natriuretic Peptide 744 H (Less than 100) pg/mL 18 Range/Units 06:35 WBC (4.3-11.1) K/mcL RBC (4.19-5.50) M/mcL Hgb (12.9-16.9) g/dL Hct (37.5-50.1) % MCV (83.0-100.0) fL MCH (28.0-33.3) pg MCHC (31.6-35.5) g/dL RDW (11.5-14.5) % Plt Count (140-400) K/mcL MPV (9.4-12.4) fL Immature Gran % (0-4) % Seg Neutrophils % % Lymphocytes % % Monocytes % % Eosinophils % % Basophils % % Neutrophils # (1.6-8.9) K/mcL Lymphocytes # (0.6-4.6) K/mcL Monocytes # (0.0-1.3) K/mcL Eosinophils # (0.0-0.6) K/mcL Basophils # (0.0-0.2) K/mcL PT (9.4-12.1) Seconds INR APTT (26.0-36.0) Seconds Sodium 137 (136-145) mEq/L Potassium 3.9 (3.5-5.1) mEq/L Chloride 99 (98-107) mEq/L Carbon Dioxide 30 H (23-29) mEq/L BUN 16 (8-23) mg/dL Creatinine 0.95 (0.70-1.30) mg/dL Est GFR ( Amer) > 60 (> 60) Est GFR (Non-Af Amer) > 60 (> 60) BUN/Creatinine Ratio 17 (6-26) Glucose 115 H (70-105) mg/dL Calculated Osmolality 286 (280-300) Calcium 9.5 (8.6-10.3) mg/dL Troponin I < 0.03 (< 0.04) ng/mL B-Natriuretic Peptide (Less than 100) pg/mL - Radiology Data Radiology results reviewed: Yes I reviewed the patient's radiology results.
[2017-12-28 07:01] LABS: Activated Partial Thrombo Time 28.2 Seconds (26.0-36.0)
[2017-12-28 07:08] LABS: BUN/Creatinine Ratio 17 (6-26); Blood Urea Nitrogen 16 mg/dL (8-23); Calcium 9.5 mg/dL (8.6-10.3); Carbon Dioxide 30 mEq/L (23-29); Chloride 99 mEq/L (98-107); Glucose 115 mg/dL (70-105); Osmolality,Calculated 286 (280-300); Potassium 3.9 mEq/L (3.5-5.1); Sodium 137 mEq/L (136-145); Troponin I < 0.03 ng/mL (< 0.04); eGFR For African Americans > 60 (> 60); eGFR For Non-African Americans > 60 (> 60)
[2017-12-28] MEDS ORDERED: Nitroglycerin 0.4 MG TAB.SUBL SL PRN (07:22)
--- NOTE | 2017-12-28 07:25 | Emergency Department Note ---
Disposition Clinical Impression: Nonproductive cough Chest pain Qualifiers: Chest pain type: unspecified Qualified Code(s): R07.9 - Chest pain, unspecified Disposition: Still a Patient Condition: Fair Referrals: Brandan Lindsay DO [Primary Care Provider] - Forms: ED Satisfaction Letter General Adult HPI - General Chief complaint: ED Chest Pain Stated complaint: CP/COUGH Time Seen by Provider: 12/28/17 05:46 Source: patient, family Mode of arrival: ambulatory Limitations: no limitations Nursing Notes Reviewed: Yes Vital Signs Reviewed: Yes - History of Present Illness Pain Scale: 4 - Related Data Home Medications Medication Instructions Recorded Confirmed Amitriptyline [Elavil] 25 mg PO QPM 03/28/15 11/23/17 Indomethacin [Indocin] 50 mg PO BID PRN 03/28/15 11/23/17 Lisinopril/Hydrochlorothiazide 1 each PO QAM 03/28/15 11/23/17 [Zestoretic 20-12.5 mg Tablet] Allopurinol [Zyloprim 100 MG] 100 mg PO DAILY 11/23/17 11/23/17 Donepezil [Aricept] 5 mg PO DAILY 11/23/17 11/23/17 Fluticasone Propionate Nasal 1 spr NS DAILY 11/23/17 11/23/17 [Flonase] Metoprolol [Lopressor] 100 mg PO QAM 11/23/17 11/23/17 Metoprolol [Lopressor] 200 mg PO QPM 11/23/17 11/23/17 Omeprazole [PriLOSEC] 40 mg PO DAILY 11/23/17 11/23/17 traZODone [TraZODone] 50 - 100 mg PO HS 11/23/17 11/23/17 Previous Rx's Medication Instructions Recorded Ferrous Sulfate 325 mg PO BIDWM #60 tablet 07/04/15 Amiodarone [Cordarone] 200 mg PO BID #60 tablet 12/02/17 Aspirin 81 mg PO DAILY tab.chew 12/02/17 Atorvastatin [Lipitor] 80 mg PO HS #30 tablet 12/02/17 DiphenhydraMINE [Benadryl] 25 mg PO HS PRN capsule 12/02/17 Allergies Allergy/AdvReac Type Severity Reaction Status Date / Time allantoin Allergy Unknown UNKNOWN Verified 12/28/17 05:32 atorvastatin [From Lipitor] Allergy Unknown UNKNOWN Verified 12/28/17 05:32 Sulfa (Sulfonamide Allergy Unknown UNKNOWN Verified 12/28/17 05:32 Antibiotics) Constitutional: Denies: fever, chills, weakness, weight change Eyes: Denies: eye pain, eye discharge, vision change ENT ED: Denies: ear pain, throat pain, dental pain, hearing loss, epistaxis, congestion, dysphagia Cardiovascular: Reports: as per HPI, chest pain. Denies: palpitations, dyspnea on exertion, edema, syncope Respiratory: Reports: as per HPI, cough. Denies: dyspnea, wheezes, hemoptysis, stridor, sputum production Gastrointestinal: Denies: abdominal pain, nausea, vomiting, diarrhea, constipation, hematemesis, melena, hematochezia Genitourinary: Denies: urgency, dysuria, frequency, hematuria Musculoskeletal: Denies: back pain, neck pain, arthralgia, myalgia Integumentary: Denies: rash, abrasion, lesions Neurological: Denies: headache, weakness, numbness, paresthesias, confusion, abnormal gait, vertigo Psychiatric: Denies: anxiety, depression, suicidal thoughts, homicidal thoughts , auditory hallucinations, visual hallucinations Endocrine: Denies: fatigue Hematological/Lymphatic: Denies: easy bleeding, easy bruising Allergic/Immunologic: Denies: facial swelling, urticaria Past Medical History - Past Medical History Medical history: Reports: coronary artery disease, hyperlipidemia, hypertension , renal disease Surgical history: Reports: orthopedic, other (Right total knee replacement) Psychiatric history: Reports: no psych history - Social History Smoking Status: Never smoker Smokeless Tobacco Status: No Alcohol use: Reports: none Drug use: Reports: none Physical Exam - General Limitations: no limitations General appearance: alert, in no apparent distress Course Vital Signs Temperature 98.0 F 12/28/17 05:30 Pulse Rate 61 12/28/17 05:30 Respiratory Rate 13 12/28/17 05:30 Blood Pressure 145/77 12/28/17 05:30 O2 Sat by Pulse Oximetry 95 12/28/17 05:30 Temperature 98.0 F 12/28/17 05:30 Pulse Rate 61 12/28/17 05:30 Respiratory Rate 13 12/28/17 05:30 Blood Pressure 145/77 12/28/17 05:30 O2 Sat by Pulse Oximetry 95 12/28/17 05:30 Oxygen Delivery Oxygen Delivery Room Air Medical Decision Making - Lab Data Result diagrams: 12/28/17 06:35 12/28/17 06:35 Lab Results 12/28/17 12/28/1718 Range/Units 06:35 06:35 06:35 WBC 7.5 (4.3-11.1) K/mcL RBC 4.09 L (4.19-5.50) M/mcL Hgb 12.1 L (12.9-16.9) g/dL Hct 38.0 (37.5-50.1) % MCV 92.9 (83.0-100.0) fL MCH 29.6 (28.0-33.3) pg MCHC 31.8 (31.6-35.5) g/dL RDW 14.6 H (11.5-14.5) % Plt Count 253 (140-400) K/mcL MPV 9.9 (9.4-12.4) fL Immature Gran % 0.8 (0-4) % Seg Neutrophils % 80.6 % Lymphocytes % 10.3 % Monocytes % 6.3 % Eosinophils % 1.7 % Basophils % 0.3 % Neutrophils # 6.0 (1.6-8.9) K/mcL Lymphocytes # 0.8 (0.6-4.6) K/mcL Monocytes # 0.5 (0.0-1.3) K/mcL Eosinophils # 0.1 (0.0-0.6) K/mcL Basophils # 0.0 (0.0-0.2) K/mcL PT 12.0 (9.4-12.1) Seconds INR 1.1 APTT 28.2 (26.0-36.0) Seconds Sodium (136-145) mEq/L Potassium (3.5-5.1) mEq/L Chloride (98-107) mEq/L Carbon Dioxide (23-29) mEq/L BUN (8-23) mg/dL Creatinine (0.70-1.30) mg/dL Est GFR ( Amer) (> 60) Est GFR (Non-Af Amer) (> 60) BUN/Creatinine Ratio (6-26) Glucose (70-105) mg/dL Calculated Osmolality (280-300) Calcium (8.6-10.3) mg/dL Troponin I (< 0.04) ng/mL B-Natriuretic Peptide 744 H (Less than 100) pg/mL 12/28/17 Range/Units 06:35 WBC (4.3-11.1) K/mcL RBC (4.19-5.50) M/mcL Hgb (12.9-16.9) g/dL Hct (37.5-50.1) % MCV (83.0-100.0) fL MCH (28.0-33.3) pg MCHC (31.6-35.5) g/dL RDW (11.5-14.5) % Plt Count (140-400) K/mcL MPV (9.4-12.4) fL Immature Gran % (0-4) % Seg Neutrophils % % Lymphocytes % % Monocytes % % Eosinophils % % Basophils % % Neutrophils # (1.6-8.9) K/mcL Lymphocytes # (0.6-4.6) K/mcL Monocytes # (0.0-1.3) K/mcL Eosinophils # (0.0-0.6) K/mcL Basophils # (0.0-0.2) K/mcL PT (9.4-12.1) Seconds INR APTT (26.0-36.0) Seconds Sodium 137 (136-145) mEq/L Potassium 3.9 (3.5-5.1) mEq/L Chloride 99 (98-107) mEq/L Carbon Dioxide 30 H (23-29) mEq/L BUN 16 (8-23) mg/dL Creatinine 0.95 (0.70-1.30) mg/dL Est GFR ( Amer) > 60 (> 60) Est GFR (Non-Af Amer) > 60 (> 60) BUN/Creatinine Ratio 17 (6-26) Glucose 115 H (70-105) mg/dL Calculated Osmolality 286 (280-300) Calcium 9.5 (8.6-10.3) mg/dL Troponin I < 0.03 (< 0.04) ng/mL B-Natriuretic Peptide (Less than 100) pg/mL Attestation Statement - Attestation Attestation: This documentation is done with the assistance of Dragon dictation. Despite efforts made to ensure accuracy, there may be inaccuracies in assurance associate or spelling and typographical errors. I examined this patient and my medical decision-making was reviewed with the Resident Physician. I agree with the documented findings, disposition and treatment plan as described except to the extent set forth below. Patient was seen and evaluated by the nurse practitioner and PA before my arrival. He has had a one-day history of chest pressure and cough. He denies any fevers or chills no back pain. He had a 2 vessel CABG done earlier this year. Has done well. His chest x-ray shows effusions bilaterally. His BNP is elevated. No other BNP to compare this to. I mean to do a nitroglycerin trial he did have aspirin already and then talk to cardiology about admission. He is in agreement with this plan. Impression is chest pain rule out ACS/unstable angina with bilateral fusion and elevated BNP.
[2017-12-28] MEDS ORDERED: Ipratropium/Albuterol Neb 3 ML IH PRN (08:32)
[2017-12-28] MEDS ORDERED: Naloxone 0.4 MG/ML INJ IVP PRN (08:41)
[2017-12-28] MEDS ORDERED: Furosemide 40 MG/4 ML VIAL IVP STA (09:09)
--- NOTE | 2017-12-28 09:13 | Internal Med History&Physical ---
Date of Encounter: 12/28/17 Time of Encounter: 09:10 Internal Medicine - H&P: HPI Chief complaint: "Chest pain" Admitted From: Emergency Dept Plans for Post Hospital Care: Home History of present illness: Mr. Sandhu is a 77 year old male who presented to ED with 2-day history of chest pain. Pain is located in entire upper chest and does not radiate anywhere. He states that pain started suddenly yesterday. He was not doing anything when it started. Last night, it woke him up a few times from bed. Pain is intermittent. Pain is currently 3/10. He denies fever, chills, SOB, nausea, vomiting, abdominal pain, changes in bladder, and changes in bowels. He recently had CABG last month. 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 He denies any edema. In the ED, CXR showed bibasilar opacities and bilater effusions unchanged from last month, and stable atelectais/scarring in left lung base. Labwork was significant for pBNP of 744. Initial troponin was WNL. He states pain in chest is greatly improved, but still present. He has no other complaints at this time. Past Med Surg Social Fam HX - Past Medical History Attestation: Yes The following information was validated with the patient. Source: patient Medical history: coronary artery disease, dementia, GERD, hyperlipidemia, hypertension, renal disease, other (Gout, Iron Deficiency Anemia) Additional medical history: GOUT, COLON POLYPS, PREDIABETIC Psychiatric history: no psych history - Past Surgical History Surgical History: coronary bypass (CABG), orthopedic, other (Right total knee replacement) Additional surgical history: t&a. prostate bx. right tkr - Social History Smoking Status: Never smoker Smokeless Tobacco Status: No Alcohol use: none Drug use: none - Family History Father Hx Family Cardiac Disorders: Yes (Stroke) Sister Hx Family Cardiac Disorders: Yes (Stroke) Hx Family Cancer: Yes (Leukemia) - Additional Family History Additional family history: Family history reviewed with patient. Internal Medicine - H&P: Meds Amitriptyline [Elavil] 25 mg PO QPM 03/28/15 [History] Indomethacin [Indocin] 50 mg PO BID PRN 03/28/15 [History] Lisinopril/Hydrochlorothiazide [Zestoretic 20-12.5 mg Tablet] 1 each PO QAM [History] Ferrous Sulfate 325 mg PO BIDWM #60 tablet 07/04/15 [Rx] Allopurinol [Zyloprim 100 MG] 100 mg PO DAILY 11/23/17 [History] Donepezil [Aricept] 5 mg PO DAILY 11/23/17 [History] Fluticasone Propionate Nasal [Flonase] 1 spr NS DAILY 11/23/17 [History] Metoprolol [Lopressor] 100 mg PO QAM 11/23/17 [History] Metoprolol [Lopressor] 200 mg PO QPM 11/23/17 [History] Omeprazole [PriLOSEC] 40 mg PO DAILY 11/23/17 [History] traZODone [TraZODone] 50 - 100 mg PO HS 11/23/17 [History] Amiodarone [Cordarone] 200 mg PO BID #60 tablet 12/02/17 [Rx] Aspirin 81 mg PO DAILY tab.chew 12/02/17 [Rx] Atorvastatin [Lipitor] 80 mg PO HS #30 tablet 12/02/17 [Rx] DiphenhydraMINE [Benadryl] 25 mg PO HS PRN capsule 12/02/17 [Rx] Linezolid [Linezolid] 600 mg PO Q12H 12/28/17 [History] 3 Allergy/AdvReac Type Severity Reaction Status Date / Time allantoin Allergy Unknown UNKNOWN Verified 12/28/17 07:56 atorvastatin [From Lipitor] Allergy Unknown UNKNOWN Verified 12/28/17 07:56 Sulfa (Sulfonamide Allergy Unknown UNKNOWN Verified 12/28/17 07:56 Antibiotics) All Systems PM: A 10-system review of systems was performed and is negative for pertinent findings except as documented above in the HPI. - Constitutional Vitals: Temp Pulse Resp BP Pulse Ox 98.0 F 61 18 140/65 94 12/28/17 05:30 12/28/17 08:09 12/28/17 08:09 12/28/17 08:09 12/28/17 08:09 General appearance: Present: cooperative, A&O X 3, pleasant, no acute distress, obese, answers questions appropriately - Head Head exam: Present: atraumatic, normal inspection, normocephalic - Eye Eye exam: Present: EOMI, PERRL. Absent: conjunctival injection, nystagmus, scleral icterus - ENT ENT exam: Present: mucous membranes moist, normal external ear exam, normal oropharynx - Neck Neck exam general surgery: Present: supple, trachea midline. Absent: lymphadenopathy, tenderness, thyromegaly - Respiratory Respiratory exam: Present: CTAB. Absent: accessory muscle use, rales, rhonchi, wheezes Additional comments: Normal WOB - Cardiovascular Cardiovascular exam: Present: RRR, +S1, +S2. Absent: diastolic murmur, gallop, rubs, systolic murmur Additional comments: No BLE edema - GI/Abdominal GI/Abdominal exam: Present: normal bowel sounds, soft. Absent: distended, hepatomegaly, mass, splenomegaly, tenderness - Neurological Exam Neurological exam: Present: alert, CN II-XII intact, oriented X3, no focal deficits, strengths equal and symetr throughout. Absent: motor sensory deficit , facial droop, speech deficit - Psychiatric Psychiatric exam: Present: normal affect, normal mood. Absent: agitated, anxious, depressed - Skin Skin exam: Present: dry, intact, warm. Absent: cyanosis, rash Internal Med - H&P Results - Labs CBC & Chem 7: 12/28/17 06:35 12/28/17 06:35 Labs: Short CBC 12/28/17 Range/Units 06:35 WBC 7.5 (4.3-11.1) K/mcL Hgb 12.1 L (12.9-16.9) g/dL Hct 38.0 (37.5-50.1) % Plt Count 253 (140-400) K/mcL Neutrophils # 6.0 (1.6-8.9) K/mcL BMP 12/28/17 06:35 Sodium 137 Potassium 3.9 Chloride 99 Carbon Dioxide 30 H BUN 16 Creatinine 0.95 Glucose 115 H Calcium 9.5 Cardiac Enzymes 12/28/17 12/28/17 Range/Units 06:35 08:25 Troponin I < 0.03 0.03 (< 0.04) ng/mL - Impressions ITS Impressions Chest X-Ray 12/28/17 05:33 IMPRESSION: 1. Bibasilar opacities and bilateral effusions are present. Findings are not significantly changed since 11/26/2017. 2. Stable atelectasis/scarring in the left base. D/ / 12/28/2017 08:17:30 Lu[facility] Interpreting Provider: Lupe Smith MD - Assessment and plan (1) Chest pain Current Visit: Yes Status: Acute Assessment and plan: Admit for observation with telemetry. Initial troponin < 0.03. Trend troponin x 3. Obtain limited ECHO in AM. Continue home medications and nitro SL PRN. Qualifiers: Chest pain type: other chest pain Qualified Code(s): R07.89 - Other chest pain; R07.8 - Other chest pain (2) Acute CHF (congestive heart failure) Current Visit: Yes Status: Acute Assessment and plan: pBNP = 744. Bilateral pleural effusions as per below. No SOB or BLE edema at this time. Diurese gently with lasix 40 mg IV QD. Strict I&Os and daily weights. Continue home medications. Recheck BMP in AM. Qualifiers: Heart failure type: unspecified Qualified Code(s): I50.9 - Heart failure, unspecified (3) Bilateral pleural effusion Current Visit: Yes Status: Acute Assessment and plan: Management as per above. (4) Atelectasis Current Visit: Yes Status: Acute Assessment and plan: Incentive spirometer. (5) CAD (coronary artery disease) Current Visit: Yes Status: Acute Assessment and plan: Management as per above. Continue home medications. Qualifiers: Coronary Disease-Associated Artery/Lesion type: bypass graft, other Associated angina: angina presence unspecified Qualified Code(s): I25.810 - Atherosclerosis of coronary artery bypass graft(s) without angina pectoris (6) Gout Current Visit: Yes Status: Chronic Assessment and plan: Continue home medications. Qualifiers: Gout site: unspecified site Gout etiology: unspecified cause Chronicity: unspecified Qualified Code(s): M10.9 - Gout, unspecified (7) Iron deficiency anemia Current Visit: Yes Status: Chronic Assessment and plan: Hemoglobin = 12.1. Continue home medications. Recheck CBC in AM. Qualifiers: Iron deficiency anemia type: unspecified iron deficiency Qualified Code(s) : D50.9 - Iron deficiency anemia, unspecified (8) GERD (gastroesophageal reflux disease) Current Visit: Yes Status: Chronic Assessment and plan: Continue home medications. Qualifiers: Esophagitis presence: without esophagitis Qualified Code(s): K21.9 - Gastro -esophageal reflux disease without esophagitis (9) Atrial fibrillation with RVR Current Visit: Yes Status: Chronic Assessment and plan: Continue home medications. (10) Dementia Current Visit: Yes Status: Chronic Assessment and plan: Continue home medications. Qualifiers: Dementia type: unspecified type Dementia behavioral disturbance: without behavioral disturbance Qualified Code(s): F03.90 - Unspecified dementia without behavioral disturbance (11) Diabetes Current Visit: Yes Status: Chronic Assessment and plan: Blood glucose WNL. Start diabetic, cardiac diet. 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 Qualifiers: Hyperlipidemia type: mixed hyperlipidemia Qualified Code(s): E78.2 - Mixed hyperlipidemia (13) Hypertension Current Visit: Yes Status: Chronic Assessment and plan: Continue home medications. Qualifiers: Hypertension type: essential hypertension Qualified Code(s): I10 - Essential (primary) hypertension (14) DVT prophylaxis Current Visit: Yes Status: Acute Assessment and plan: Start lovenox 40 mg SQ QD and SCDs. - Time Spent With Patient Total time spent is greater than 50% in coordination of care (as documented) at patient's floor/unit and/or counseling patient: less than 15 minutes
[2017-12-28] MEDS: Metoprolol 100 MG TABLET PO SCH ×2 (11:16→17:17)
[2017-12-28] MEDS: Aspirin 81 MG TAB.CHEW PO SCH ×2 (11:17→11:59)
[2017-12-28] MEDS: Lisinopril-HCTZ 20-12.5mg TABLET PO SCH (11:17)
[2017-12-28] MEDS: *HR* Amiodarone 200 MG TABLET PO SCH ×2 (11:17→20:31)
[2017-12-28] MEDS: *HR* Enoxaparin 40 MG/0.4 ML SYRINGE SQ SCH ×2 (11:17→11:59)
[2017-12-28] MEDS: Linezolid 600 MG TABLET PO SCH ×2 (11:18→20:32)
[2017-12-28] MEDS: Fluticasone Propionate Nasal 50 MCG/SPRAY BOTTLE NS SCH (11:18)
[2017-12-28] MEDS: traZODone 50 MG TABLET PO SCH (20:31)
[2017-12-29 01:38] LABS: Hematocrit 35.9 % (37.5-50.1); Hemoglobin 11.2 g/dL (12.9-16.9); Immature Granulocytes % 0.6 % (0-4); Lymphocytes % 14.7 %; Mean Corpuscular HGB Conc 31.2 g/dL (31.6-35.5); Mean Corpuscular Hemoglobin 28.8 pg (28.0-33.3); Mean Corpuscular Volume 92.3 fL (83.0-100.0); Mean Platelet Volume 10.6 fL (9.4-12.4); Platelet Count 248 K/mcL (140-400); Red Blood Count 3.89 M/mcL (4.19-5.50)
[2017-12-29 01:39] LABS: Basophils % 0.6 %; Eosinophils # 0.1 K/mcL (0.0-0.6); Eosinophils % 1.9 %; Lymphocytes # 0.9 K/mcL (0.6-4.6); Monocytes # 0.5 K/mcL (0.0-1.3); Monocytes % 7.2 %; Neutrophils # 4.8 K/mcL (1.6-8.9)
[2017-12-29 02:00] LABS: BUN/Creatinine Ratio 17 (6-26); Blood Urea Nitrogen 17 mg/dL (8-23); Calcium 9.3 mg/dL (8.6-10.3); Carbon Dioxide 29 mEq/L (23-29); Chloride 95 mEq/L (98-107); Chol/HDL Ratio 3.1 (0-4.9); Cholesterol 139 mg/dL (< 200); Glucose 118 mg/dL (70-105); HDL Cholesterol 45 mg/dL (40-59); LDL Cholesterol,Calculated 77 mg/dL (0-99); Magnesium 1.8 mg/dL (1.6-2.6); Osmolality,Calculated 281 (280-300); Potassium 3.6 mEq/L (3.5-5.1); Sodium 134 mEq/L (136-145); Triglycerides 84 mg/dL (< 150); eGFR For African Americans > 60 (> 60); eGFR For Non-African Americans > 60 (> 60)
[2017-12-29] MEDS: Linezolid 600 MG TABLET PO SCH ×2 (09:50→19:54)
[2017-12-29] MEDS: *HR* Amiodarone 200 MG TABLET PO SCH ×2 (09:50→19:54)
[2017-12-29] MEDS: Aspirin 81 MG TAB.CHEW PO SCH (09:50)
[2017-12-29] MEDS: Metoprolol 100 MG TABLET PO SCH ×2 (09:50→16:57)
[2017-12-29] MEDS: Lisinopril-HCTZ 20-12.5mg TABLET PO SCH (09:50)
[2017-12-29] MEDS: Fluticasone Propionate Nasal 50 MCG/SPRAY BOTTLE NS SCH (09:51)
[2017-12-29] MEDS: *HR* Enoxaparin 40 MG/0.4 ML SYRINGE SQ SCH (09:51)
[2017-12-29] MEDS: Furosemide 40 MG/4 ML VIAL IVP SCH (09:51)
[2017-12-29] MEDS: Acetaminophen 325 MG TABLET PO PRN ×2 (11:43→23:06)
--- NOTE | 2017-12-29 18:33 | Internal Med Progress Note ---
Date of Encounter: 12/29/17 Time of Encounter: 11:05 - Assessment and plan (1) Diabetes Current Visit: Yes Status: Chronic Assessment and plan: Chronic. A1c 5.6% in Nov, 2017. Patient does not appear to take any home medications for it. Qualifiers: Diabetes mellitus type: type 2 Diabetes mellitus complication status: with kidney complications Diabetes mellitus complication detail: with chronic kidney disease Chronic kidney disease stage: unspecified stage Qualified Code(s): E11.22 - Type 2 diabetes mellitus with diabetic chronic kidney disease ; Z79.4 - alf (current) use of insulin (2) Hypertension Current Visit: Yes Status: Chronic Assessment and plan: Continue home medications. Stable and well controlled. Qualifiers: Hypertension type: essential hypertension Qualified Code(s): I10 - Essential (primary) hypertension (3) Hyperlipidemia Current Visit: Yes Status: Chronic Assessment and plan: Continue home medications. Chronic. Qualifiers: Hyperlipidemia type: mixed hyperlipidemia Qualified Code(s): E78.2 - Mixed hyperlipidemia (4) Atrial fibrillation with RVR Current Visit: Yes Status: Chronic Assessment and plan: Continue amiodarone and aspirin. Rate controlled Continue telemetry (5) DVT prophylaxis Current Visit: Yes Status: Acute Assessment and plan: Lovenox subcutaneous (6) Dementia Current Visit: Yes Status: Chronic Assessment and plan: Continue Aricept. Monitor for safety and falls. Qualifiers: Dementia type: unspecified type Dementia behavioral disturbance: without behavioral disturbance Qualified Code(s): F03.90 - Unspecified dementia without behavioral disturbance (7) Chest pain Current Visit: Yes Status: Acute Assessment and plan: Patient reports continued 3/10 chest pressure that is intermittent. He denies shortness of breath, nausea, vomiting, or diaphoresis. Patient's vitals are stable. Troponins are negative 3. BNP has decreased from admission. Patient is status post CABG 5 weeks ago. Limited echo showed LVEF of 60% with atypical septal motion consistent with postoperative status. Likely secondary to exacerbation of CHF and postop status. Continue telemetry Continue strict intake and output Continue daily weights Continue home medications Monitor labs and vitals Qualifiers: Chest pain type: other chest pain Qualified Code(s): R07.89 - Other chest pain; R07.8 - Other chest pain (8) Gout Current Visit: Yes Status: Chronic Assessment and plan: Continue home medications. Qualifiers: Gout site: unspecified site Gout etiology: unspecified cause Chronicity: unspecified Qualified Code(s): M10.9 - Gout, unspecified (9) CAD (coronary artery disease) Current Visit: Yes Status: Acute Assessment and plan: Recent CABG 5 weeks ago. Continue amiodarone, aspirin, Lipitor, Lasix, antihypertensives, and beta saad. Continue telemetry. Qualifiers: Coronary Disease-Associated Artery/Lesion type: bypass graft, other Associated angina: angina presence unspecified Qualified Code(s): I25.810 - Atherosclerosis of coronary artery bypass graft(s) without angina pectoris (10) Iron deficiency anemia Current Visit: Yes Status: Chronic Assessment and plan: Hemoglobin = 11.2. Continue ferrous sulfate 325 mg by mouth twice daily. Continue to monitor labs. Qualifiers: Iron deficiency anemia type: unspecified iron deficiency Qualified Code(s) : D50.9 - Iron deficiency anemia, unspecified (11) GERD (gastroesophageal reflux disease) Current Visit: Yes Status: Chronic Assessment and plan: Chronic. Continue Prilosec 40 mg every morning. Qualifiers: Esophagitis presence: without esophagitis Qualified Code(s): K21.9 - Gastro -esophageal reflux disease without esophagitis (12) Atelectasis Current Visit: Yes Status: Acute Assessment and plan: Incentive spirometer. (13) Bilateral pleural effusion Current Visit: Yes Status: Acute Assessment and plan: Plan as above. (14) Acute CHF (congestive heart failure) Current Visit: Yes Status: Acute Assessment and plan: Echocardiogram from Nov, 2017 shows an LVEF of 6065% with mild LV DD and no significant valvular dysfunction. Limited echo today shows LVEF remained 60% and atypical septal motion consistent with postoperative status is noted. Bilateral pleural effusions noted on x-ray. No BLE edema at this time and reports shortness of breath has improved. Continue lasix 40 mg IV QD. Strict I&Os and daily weights. Continue home medications. Qualifiers: Heart failure type: unspecified Qualified Code(s): I50.9 - Heart failure, unspecified - Time Spent With Patient Total time spent is greater than 50% in coordination of care (as documented) at patient's floor/unit and/or counseling patient: less than 15 minutes - Subjective Interval history: Patient is alert, awake, oriented. He was seen at bedside 11:05 AM, is at bedside and all questions were answered. Patient reports continued chest pain/ pressure describes it as a 3/10, intermittent. He denies any shortness of breath, nausea, vomiting, vision changes, abdominal pain, diarrhea or constipation. - Constitutional Vitals: Temp Pulse Resp BP Pulse Ox 97.7 F 61 14 146/78 94 12/29/17 16:20 12/29/17 16:20 12/29/17 16:20 12/29/17 16:20 12/29/17 16:20 General appearance: Present: cooperative, A&O X 3, pleasant, no acute distress, obese, answers questions appropriately - Head Head exam: Present: atraumatic, normal inspection, normocephalic - Eye Eye exam: Present: normal appearance, conjuntiva pink, sclera anicteric - Neck Neck exam general surgery: Present: supple, trachea midline. Absent: lymphadenopathy, tenderness - Respiratory Respiratory exam: Present: CTAB. Absent: accessory muscle use, chest wall tenderness, decreased breath sounds, rales, respiratory distress, rhonchi, wheezes - Cardiovascular Cardiovascular exam: Present: RRR, +S1, +S2. Absent: diastolic murmur, gallop, rubs, systolic murmur - GI/Abdominal GI/Abdominal exam: Present: normal bowel sounds, soft. Absent: distended, hepatomegaly, tenderness - Extremities Exam Extremities exam: Present: normal capillary refill, normal inspection, warm, radial pulses palpable and symmetrical. Absent: calf tenderness, cyanotic, pedal edema, tenderness - Neurological Exam Neurological exam: Present: alert, altered, oriented X3, no focal deficits. Absent: facial droop, speech deficit - Skin Skin exam: Present: dry, intact, normal color, warm. Absent: rash Internal Medicine: Result - Labs CBC & Chem 7: 12/29/17 00:48 12/29/17 00:48 Labs: Short CBC 12/29/17 Range/Units 00:48 WBC 6.4 (4.3-11.1) K/mcL Hgb 11.2 L (12.9-16.9) g/dL Hct 35.9 L (37.5-50.1) % Plt Count 248 (140-400) K/mcL Neutrophils # 4.8 (1.6-8.9) K/mcL BMP 12/29/17 00:48 Sodium 134 L Potassium 3.6 Chloride 95 L Carbon Dioxide 29 BUN 17 Creatinine 0.99 Glucose 118 H Calcium 9.3 Cardiac Enzymes 12/28/17 12/29/17 Range/Units 18:42 00:48 Troponin I < 0.03 0.03 (< 0.04) ng/mL - ABG Interpretation ABG results: PT/INR, D-dimer PT 12.0 Seconds (9.4-12.1) 12/28/17 06:35 - VTE Documentation of Mechanical Device: Intermittent pneumatic compression device Consult Discharge Plan - Plan Referrals: Issac Teague MD [Partnered Physician] - 01/04/18 12:30 pm Brandan Lindsay DO [Primary Care Provider] - 01/11/18 11:05 am Casper Qureshi MD [Partnered Physician] - 01/06/18 10:15 am
[2017-12-29] MEDS: traZODone 50 MG TABLET PO SCH (19:55)
[2017-12-30 05:24] LABS: Basophils % 0.4 %; Eosinophils # 0.2 K/mcL (0.0-0.6); Eosinophils % 3.3 %; Hematocrit 37.1 % (37.5-50.1); Immature Granulocytes % 0.7 % (0-4); Immature Platelets 4.3 % (1.1-6.1); Lymphocytes # 1.1 K/mcL (0.6-4.6); Lymphocytes % 19.2 %; Mean Corpuscular HGB Conc 32.3 g/dL (31.6-35.5); Mean Corpuscular Hemoglobin 29.6 pg (28.0-33.3); Mean Corpuscular Volume 91.6 fL (83.0-100.0); Mean Platelet Volume 10.3 fL (9.4-12.4); Monocytes # 0.5 K/mcL (0.0-1.3); Monocytes % 8.2 %; Neutrophils # 3.7 K/mcL (1.6-8.9); Platelet Count 247 K/mcL (140-400); Red Blood Count 4.05 M/mcL (4.19-5.50); Segmented Neutrophils % 68.2 %
[2017-12-30 05:43] LABS: BUN/Creatinine Ratio 21 (6-26); Blood Urea Nitrogen 18 mg/dL (8-23); Calcium 9.3 mg/dL (8.6-10.3); Carbon Dioxide 30 mEq/L (23-29); Chloride 94 mEq/L (98-107); Glucose 100 mg/dL (70-105); Osmolality,Calculated 280 (280-300); Potassium 3.4 mEq/L (3.5-5.1); Sodium 134 mEq/L (136-145); eGFR For African Americans > 60 (> 60); eGFR For Non-African Americans > 60 (> 60)
--- NOTE | 2017-12-30 08:15 | Electrocardiograph Report ---
[employer] Test Date: 2017-12-28 Pat Name: James Sandhu Department: [id number] Room: 3B23 Gender: M Pull Over: [facility] : 1940 Requested By: Shiv Caro Order Number: [id number] Reading MD: Qamar Ramirez Measurements Intervals [place] Rate: 59 P: 34 WV: 191 QRS: 18 QRSD: 98 T: 60 QT: 446 QTc: 445 Interpretive Statements SINUS BRADYCARDIA NONSPECIFIC T-WAVE ABNORMALITY Electronically Signed On 12-30-2017 8:13:29 EDT by Qamar Ramirez
[2017-12-30] MEDS: Aspirin 81 MG TAB.CHEW PO SCH (09:05)
[2017-12-30] MEDS: Linezolid 600 MG TABLET PO SCH (09:06)
[2017-12-30] MEDS: *HR* Enoxaparin 40 MG/0.4 ML SYRINGE SQ SCH (09:06)
[2017-12-30] MEDS: Lisinopril-HCTZ 20-12.5mg TABLET PO SCH (09:06)
[2017-12-30] MEDS: Metoprolol 100 MG TABLET PO SCH (09:06)
[2017-12-30] MEDS: *HR* Amiodarone 200 MG TABLET PO SCH (09:06)
[2017-12-30] MEDS: Furosemide 40 MG/4 ML VIAL IVP SCH (09:06)
[2017-12-30] MEDS: Fluticasone Propionate Nasal 50 MCG/SPRAY BOTTLE NS SCH (09:07)
[2017-12-30 11:07] VITALS: BP 109/65
--- NOTE | 2017-12-30 12:21 | Discharge Summary ---
- NOTES TO OUTPATIENT PROVIDER Notes to Outpatient Provider: Pt was admitted for diffuse upper chest pain without radiation. He has been treated for AECHF with IV lasix. Today, pt states that he is better and he and are anxious to go home. Reports decrease in chest pain and states that it gets worse with deep inspiration, likely chest wall pain after CABG. Recommend close follow up after discharge and follow up with cardiology. Date of Encounter: 12/30/17 Time of Encounter: 10:05 - Discharge Diagnosis (1) Diabetes Priority: Secondary Status: Chronic Assessment and Plan: Chronic. A1c 5.6% in Nov, 2017. No medications currently. 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 Stable and well controlled. Continue home medications. Qualifiers: Hypertension type: essential hypertension Qualified Code(s): I10 - Essential (primary) hypertension (3) Hyperlipidemia Priority: Secondary Status: Chronic Assessment and Plan: Continue home medications. Qualifiers: Hyperlipidemia type: mixed hyperlipidemia Qualified Code(s): E78.2 - Mixed hyperlipidemia (4) Atrial fibrillation with RVR Priority: Secondary Status: Chronic Assessment and Plan: Continue amiodarone and aspirin. Rate controlled in the 60s and 70s. (5) DVT prophylaxis Priority: Secondary Status: Acute Assessment and Plan: Lovenox SQ (6) Dementia Priority: Secondary Status: Chronic Assessment and Plan: Continue Aricept. Qualifiers: Dementia type: unspecified type Dementia behavioral disturbance: without behavioral disturbance Qualified Code(s): F03.90 - Unspecified dementia without behavioral disturbance (7) Chest pain Priority: Secondary Status: Acute Assessment and Plan: Patient reports continued 1/10 chest pressure that is intermittent and worse with deep inspiration and palpation. He denies shortness of breath, nausea, vomiting, or diaphoresis. Patient's vitals are stable. Troponins are negative 3. BNP has decreased from admission. Limited echo showed LVEF of 60% with atypical septal motion consistent with postoperative status. Likely secondary to exacerbation of CHF and postop status, chest wall pain s/p CABG. Patient is status post CABG 5 weeks ago. Continue home medications Follow with PCP and cardiology Qualifiers: Chest pain type: other chest pain Qualified Code(s): R07.89 - Other chest pain; R07.8 - Other chest pain (8) Gout Priority: Secondary Status: Chronic Assessment and Plan: Continue home medications. Qualifiers: Gout site: unspecified site Gout etiology: unspecified cause Chronicity: unspecified Qualified Code(s): M10.9 - Gout, unspecified (9) CAD (coronary artery disease) Priority: Secondary Status: Chronic Assessment and Plan: Recent CABG 5 weeks ago. Continue amiodarone, aspirin, Lipitor, antihypertensives, and beta saad. Qualifiers: Coronary Disease-Associated Artery/Lesion type: bypass graft, other Associated angina: angina presence unspecified Qualified Code(s): I25.810 - Atherosclerosis of coronary artery bypass graft(s) without angina pectoris (10) Iron deficiency anemia Priority: Secondary Status: Chronic Assessment and Plan: Hemoglobin = 12.0. Improving and stable. Continue ferrous sulfate 325 mg by mouth twice daily. Qualifiers: Iron deficiency anemia type: unspecified iron deficiency Qualified Code(s) : D50.9 - Iron deficiency anemia, unspecified (11) GERD (gastroesophageal reflux disease) Priority: Secondary Status: Chronic Assessment and Plan: Chronic. Continue Prilosec 40 mg every morning. Qualifiers: Esophagitis presence: without esophagitis Qualified Code(s): K21.9 - Gastro -esophageal reflux disease without esophagitis (12) Atelectasis Priority: Secondary Status: Acute Assessment and Plan: Incentive spirometer. (13) Bilateral pleural effusion Priority: Secondary Status: Acute Assessment and Plan: Plan as above. Lasix po at home. (14) Acute CHF (congestive heart failure) Priority: Secondary Status: Acute Assessment and Plan: Acute exacerbation of chronic diastolic heart failure. Echocardiogram from Nov, 2017 shows an LVEF of 6065% with mild LV DD and no significant valvular dysfunction. Limited echo today shows LVEF remained 60% and atypical septal motion consistent with postoperative status is noted. Bilateral pleural effusions noted on x-ray. No BLE edema and reports shortness of breath has improved. Continue lasix 20mg po daily. Monitor weight at home daily. Continue home medications. Qualifiers: Heart failure type: diastolic Qualified Code(s): I50.31 - Acute diastolic ( congestive) heart failure Hospital course: Mr. Sandhu is a 77 year old male with past medical history of coronary artery disease, recent CABG, dementia, gallops, iron deficiency anemia, GERD, congestive heart failure, arthritis of the knee, hypertension, hyperlipidemia, A. fib with RVR. Pt was admitted 5 weeks s/p CABG for upper chest pain. Troponins negative, EKG without ST changes, today pain is reproducible with deep inspiration and he rates it 1/10, staes that it is better than on admission when it was 8/10. ON admission BMP was elevated, has decreased and pt states that he is feeling better and is anxious to go home. He reports that chest pain has improved and "I will do better at home." Patient with chronic anemia that is stable, mild hyponatremia that is stable. Patient has done well with diuresis and family has requested patient be sent home with by mouth Lasix at discharge. Continue with a 7 day supply of 10 mg by mouth Lasix as well as potassium chloride supplements for home. I will defer to primary care for decision-making on the continuation of Lasix. Patient's vital signs and other labs are stable and within normal limits. Patient is appropriate for discharge. Discharge discussed with: patient, family, nurse - Time Spent with Patient Total time spent providing and/or coordinating discharge services: Less than 30 minutes - Discharge Medications Prescriptions: Furosemide [Lasix] 10 mg PO DAILY #7 tablet Potassium Chloride 10 meq PO DAILY #7 tab.er.prt Home Medications: Amitriptyline [Elavil] 25 mg PO QPM 03/28/15 [History] Indomethacin [Indocin] 50 mg PO BID PRN 03/28/15 [History] Lisinopril/Hydrochlorothiazide [Zestoretic 20-12.5 mg Tablet] 1 each PO QAM [History] Ferrous Sulfate 325 mg PO BIDWM #60 tablet 07/04/15 [Rx] Allopurinol [Zyloprim 100 MG] 100 mg PO DAILY 11/23/17 [History] Donepezil [Aricept] 5 mg PO DAILY 11/23/17 [History] Fluticasone Propionate Nasal [Flonase] 1 spr NS DAILY 11/23/17 [History] Metoprolol [Lopressor] 100 mg PO QAM 11/23/17 [History] Metoprolol [Lopressor] 200 mg PO QPM 11/23/17 [History] Omeprazole [PriLOSEC] 40 mg PO DAILY 11/23/17 [History] traZODone [TraZODone] 50 - 100 mg PO HS 11/23/17 [History] Amiodarone [Cordarone] 200 mg PO BID #60 tablet 12/02/17 [Rx] Aspirin 81 mg PO DAILY tab.chew 12/02/17 [Rx] Atorvastatin [Lipitor] 80 mg PO HS #30 tablet 12/02/17 [Rx] DiphenhydraMINE [Benadryl] 25 mg PO HS PRN capsule 12/02/17 [Rx] Linezolid 600 mg PO Q12H 12/28/17 [History] Furosemide [Lasix] 10 mg PO DAILY #7 tablet 12/30/17 [Rx] Potassium Chloride 10 meq PO DAILY #7 tab.er.prt 12/30/17 [Rx] Allergies/Adverse Reactions: 3 Allergy/AdvReac Type Severity Reaction Status Date / Time allantoin Allergy Unknown UNKNOWN Verified 12/28/17 07:56 atorvastatin [From Lipitor] Allergy Unknown UNKNOWN Verified 12/28/17 07:56 Sulfa (Sulfonamide Allergy Unknown UNKNOWN Verified 12/28/17 07:56 Antibiotics) Date of admission: 12/28/17 08:47 Primary care physician: Brandan Lindsay DO Consults: 12/28/17 11:09 Consult to Wound Care [CONS] Routine Reason for Consult: abscess on buttock Time Notified: 11:10 Call Completed: No 12/29/17 08:30 Consult to Nurse Navigator [CONS] Routine Comment: CHF Discharging clinician: Linda Long Anticipated date of discharge: 12/30/17 - Constitutional Vitals: Temp Pulse Resp BP Pulse Ox 97.5 F L 65 15 109/65 95 12/30/17 11:06 12/30/17 11:06 12/30/17 11:06 12/30/17 11:06 12/30/17 11:06 General appearance: Present: cooperative, A&O X 3, pleasant, no acute distress, obese, answers questions appropriately - Head Head exam: Present: atraumatic, normal inspection, normocephalic - Eye Eye exam: Present: normal appearance, conjuntiva pink, sclera anicteric - Neck Neck exam general surgery: Present: normal inspection, supple, trachea midline. Absent: lymphadenopathy, tenderness - Respiratory Respiratory exam: Present: CTAB. Absent: accessory muscle use, rales, rhonchi, wheezes - Cardiovascular Cardiovascular exam: Present: RRR, +S1, +S2. Absent: diastolic murmur, gallop, rubs, systolic murmur - GI/Abdominal GI/Abdominal exam: Present: normal bowel sounds, soft. Absent: distended, hepatomegaly, tenderness - Extremities Exam Extremities exam: Present: normal capillary refill, normal inspection, warm, radial pulses palpable and symmetrical. Absent: calf tenderness, cyanotic, pedal edema, tenderness - Neurological Exam Neurological exam: Present: CN II-XII intact, oriented X3, no focal deficits. Absent: pronater drift, facial droop, speech deficit - Skin Skin exam: Present: dry, intact, normal color, warm. Absent: rash - Patient Status Disposition: Home, Self-Care Condition: Good Functional capacity at discharge: uses cane/walker Overall status at discharge: patient is progressing back to baseline - Discharge Instructions Instructions: Chest Pain (DC) Follow Up With: Issac Teague MD [Partnered Physician] - 01/04/18 12:30 pm Brandan Lindsay DO [Primary Care Provider] - 01/11/18 11:05 am Casper Qureshi MD [Partnered Physician] - 01/06/18 10:15 am Additional Instructions: Please follow up with your PCP and cardiology as scheduled. Weigh yourself daily at the same time in the same type of clothing. If you notice a 3-5# weight gain, contact your PCP. Restrict the amount of sodium in your diet. Resume your normal medications Resume your normal diet and activities as tolerated. Follow-up appointments: If there is not an appointment listed below, please call your physician and schedule a follow-up appointment. If you have congestive heart failure and your symptoms return, make an appointment with your physician. Medication List: Carry an up to date list of medications you are taking at all time. We have given you an updated medication list including any new medications that you have been prescribed. Please provide that list to your primary provider Symptoms: If your condition changes or you experience any of the following symptoms, notify your physician immediately: Unusual or worsening pain, fever, persistent nausea and vomiting, bleeding, increase in swelling (especially in your legs), sudden weight gain, extreme dizziness, chest pain, increased drainage or redness from a wound or incision. Go to the emergency department if you experience a problem with breathing. Weights: If you have a history of swelling or shortness of breath, weigh yourself daily and notify your physician if you have a weight gain of two or more pounds in one day or 5 or more pounds in a week. If you experience any of the warning signs for stroke: Sudden numbness or weakness of the face, arm or leg; especially on one side of the body, sudden confusion, trouble speaking or understanding, sudden trouble seeing in one or both eyes, sudden trouble walking, dizziness, loss of balance or coordination, sudden sever headache with no cause; Call 911 or go to the emergency room. Stroke is a medical emergency. Some risk factors for stroke: Age, cigarette smoking, diabetes, excessive alcohol consumption, family history , high blood pressure, overweight, physical inactivity, prior stroke, heart attack, diagnosis of carotid artery stenosis or other artery disease. If you smoke, STOP: Smoking or tobacco use significantly increases your risk of heart and lung disease. Your chance of disease greatly increases if you continue to smoke. For more information, call the [employer] tobacco quit line for smoking cessation QUIT-NOW ( ) - Diet and Activity Activity: increase activity as tolerated, resume usual activities as tolerated Diet: low salt diet - VTE Documentation of Mechanical Device: Intermittent pneumatic compression device
== END 2017-12-30 14:13 | disposition home or self-care (01) ==
LOC: EMEROO 05:30 → 3BNU 05:30
PROVIDERS: ADMIT Family Medicine; ATTEND Family Medicine

== ENCOUNTER 2020-04-11 00:37 | Observation (INO) ==
[2020-04-11 02:36] LABS: Basophils # 0.1 K/mcL (0.0-0.2); Eosinophils # 0.1 K/mcL (0.0-0.6); Eosinophils % 2.7 %; Hematocrit 39.9 % (37.5-50.1); Hemoglobin 12.4 g/dL (12.9-16.9); Immature Granulocytes % 2.9 % (0-4); Lymphocytes % 20.8 %; Mean Corpuscular HGB Conc 31.1 g/dL (31.6-35.5); Mean Corpuscular Hemoglobin 30.9 pg (28.0-33.3); Mean Corpuscular Volume 99.5 fL (83.0-100.0); Mean Platelet Volume 10.6 fL (9.4-12.4); Monocytes # 0.3 K/mcL (0.0-1.3); Monocytes % 6.3 %; Neutrophils # 3.3 K/mcL (1.6-8.9); Platelet Count 207 K/mcL (140-400); Red Blood Count 4.01 M/mcL (4.19-5.50); Red Cell Distribution Width 13.8 % (11.5-14.5); Segmented Neutrophils % 66.3 %; White Blood Count 4.9 K/mcL (4.3-11.1)
[2020-04-11 02:43] LABS: INR 1.8; Prothrombin Time 20.6 Seconds (9.4-12.1)
[2020-04-11 02:46] LABS: Activated Partial Thrombo Time 32.2 Seconds (26.0-36.0)
[2020-04-11] MEDS ORDERED: Pantoprazole 80 MG in 0.9 % Sodium Chloride 50 ML IVPB ONE (02:51)
[2020-04-11 02:57] LABS: Alanine Aminotransferase 13 Units/L (7-52); Albumin 3.7 g/dL (3.5-5.7); Albumin/Globulin Ratio 1.6 (1.1-2.2); Alkaline Phosphatase 49 Units/L (34-104); Aspartate Amino Transferase 18 Units/L (13-39); BUN/Creatinine Ratio 32 (6-26); Bilirubin,Total 0.5 mg/dL (0.3-1.0); Blood Urea Nitrogen 22 mg/dL (8-23); Calcium 9.2 mg/dL (8.6-10.3); Carbon Dioxide 28 mEq/L (23-29); Chloride 102 mEq/L (98-107); Globulin 2.3 g/dL (2.4-3.5); Glucose 126 mg/dL (70-105); Osmolality,Calculated 291 (280-300); Sodium 138 mEq/L (136-145); eGFR For African Americans > 60 (> 60); eGFR For Non-African Americans > 60 (> 60)
[2020-04-11] MEDS ORDERED: Isovue-370 500 ML BOTTLE IVP ONE (03:48)
[2020-04-11] MEDS ORDERED: 0.9 % Sodium Chloride 500 ML IV ONE (03:49)
[2020-04-11] MEDS ORDERED: Naloxone 0.4 MG/ML INJ IVP PRN (05:37)
[2020-04-11] MEDS ORDERED: Ondansetron 4 MG/2 ML VIAL IVP PRN (05:37)
[2020-04-11] MEDS: Pantoprazole 40 MG VIAL IVP SCH ×2 (06:39→17:09)
[2020-04-11] MEDS: 0.9 % Sodium Chloride 1,000 ML IVC SCH ×2 (08:20→23:56)
[2020-04-11 10:10] LABS: Hematocrit 41.7 % (37.5-50.1); Hemoglobin 12.7 g/dL (12.9-16.9)
[2020-04-11] MEDS ORDERED: Fluticasone Propionate Nasal 50 MCG/SPRAY BOTTLE NS PRN (13:08)
[2020-04-11] MEDS ORDERED: SODIUM CHLORIDE/NAHCO3/KCL/PEG 4,000 ML SOLN.RECON PO ONE (17:00)
[2020-04-11] MEDS: Metoprolol 100 MG TABLET PO SCH (21:26)
[2020-04-12 01:26] LABS: Basophils % 0.8 %; Eosinophils % 1.1 %; Hematocrit 40.6 % (37.5-50.1); Hemoglobin 12.6 g/dL (12.9-16.9); Immature Granulocytes % 3.6 % (0-4); Lymphocytes # 0.7 K/mcL (0.6-4.6); Lymphocytes % 20.1 %; Mean Platelet Volume 10.6 fL (9.4-12.4); Monocytes # 0.3 K/mcL (0.0-1.3); Monocytes % 7.4 %; Neutrophils # 2.4 K/mcL (1.6-8.9); Platelet Count 208 K/mcL (140-400); Red Blood Count 4.06 M/mcL (4.19-5.50); Red Cell Distribution Width 13.6 % (11.5-14.5); White Blood Count 3.6 K/mcL (4.3-11.1)
[2020-04-12 01:41] LABS: BUN/Creatinine Ratio 20 (6-26); Blood Urea Nitrogen 12 mg/dL (8-23); Calcium 8.8 mg/dL (8.6-10.3); Carbon Dioxide 25 mEq/L (23-29); Chloride 101 mEq/L (98-107); Glucose 108 mg/dL (70-105); Osmolality,Calculated 278 (280-300); Potassium 4.1 mEq/L (3.5-5.1); Sodium 134 mEq/L (136-145); eGFR For African Americans > 60 (> 60); eGFR For Non-African Americans > 60 (> 60)
[2020-04-12] MEDS: Pantoprazole 40 MG VIAL IVP SCH (05:09)
[2020-04-12] MEDS: Metoprolol 100 MG TABLET PO SCH (07:35)
[2020-04-12] MEDS ORDERED: D5% in Water 1,000 ML IVC PRN (08:04)
[2020-04-12] MEDS ORDERED: Dextrose Gel 15 GM/37.5 ML TUBE PO PRN ×2 (08:04)
[2020-04-12] MEDS ORDERED: *HR* Dextrose 50 % in Water (Vial) 50 ML VIAL IVP PRN (08:04)
[2020-04-12] MEDS ORDERED: Multivit/Ca/Min/Fe/FA 1 TAB TABLET PO SCH (09:00)
[2020-04-12] MEDS ORDERED: Lisinopril-HCTZ 20-12.5mg TABLET PO SCH (09:00)
[2020-04-12] MEDS ORDERED: amLODIPine 5 MG TABLET PO SCH (09:00)
[2020-04-12] MEDS ORDERED: allopurinoL 300 MG TABLET PO SCH ×2 (09:00)
[2020-04-12] MEDS ORDERED: Lidocaine 4% CREAM (LMX) 5 GM TP PRN (10:11)
[2020-04-12 13:09] LABS: Adenovirus Not Detected (Not Detect); Bordetella Pertussis Not Detected (Not Detect); Chlamydophila pneumoniae Not Detected (Not Detect); Coronavirus 229E Not Detected (Not Detect); Coronavirus HKU1 Not Detected (Not Detect); Coronavirus NL63 Not Detected (Not Detect); Coronavirus OC43 Not Detected (Not Detect); Human Metapneumovirus Not Detected (Not Detect); Human Rhinovirus/Enterovirus Not Detected (Not Detect); Influenza A Subtype 2009 H1 Not Detected (Not Detect); Influenza B Not Detected (Not Detect); Mycoplasma pneumoniae Not Detected (Not Detect); Parainfluenza Virus 1 Not Detected (Not Detect); Parainfluenza Virus 2 Not Detected (Not Detect); Parainfluenza Virus 3 Not Detected (Not Detect); Parainfluenza Virus 4 Not Detected (Not Detect); Respiratory Syncytial Virus Not Detected (Not Detect); SARS-CoV-2 Not Detected (Not Detect)
[2020-04-12] MEDS: 0.9 % Sodium Chloride 1,000 ML IVC SCH (13:09)
[2020-04-12] MEDS: Insulin LISPRO 300 UNITS/3 ML VIAL SQ SCH ×2 (13:10→18:52)
[2020-04-12 14:28] VITALS: BP 157/80
[2020-04-12] MEDS ORDERED: Metoprolol 100 MG TABLET PO SCH (18:00)
[2020-04-12] MEDS ORDERED: Lidocaine -MPF 2% 5 ML VIAL SQ ONE (19:15)
[2020-04-12] MEDS ORDERED: *HR* Propofol 200 MG/20 ML VIAL IVP ONE (19:15)
[2020-04-12] MEDS ORDERED: Latanoprost 2.5 ML BOTTLE BOTH EYES SCH (21:00)
[2020-04-13] MEDS ORDERED: Metoprolol 100 MG TABLET PO SCH (09:00)
[2020-04-13] MEDS ORDERED: Ascorbic Acid 500 MG TABLET PO SCH (09:00)
== END 2020-04-12 19:16 | disposition left against medical advice (07) ==
LOC: EMEROOARM 00:37 → 3ANU 00:37 → SUATTDRO 04:58 → 3ANU 05:23
PROVIDERS: ADMIT Internal Medicine; ATTEND Internal Medicine